=== PATIENT | female | born 1945 | race Caucasian/White ===

== ENCOUNTER 2020-02-09 15:13 | Outpatient (CLI) | payer MEDICARE, SELFPAY ==
--- NOTE | 2020-02-09 15:26 | US_ITS ---
WS: [id number] ULTRASOUND RENAL TECHNIQUE: Ultrasound examination of both kidneys. CLINICAL INFORMATION: Chronic kidney disease Declining renal function COMPARISON: None. FINDINGS: RIGHT: Right renal atrophy Echogenicity: Normal. Cortical thickness: 0.8 cm; Hydronephrosis: None. Perinephric fluid: None. Right kidney measures: 7.4 cm x 4.7 cm x 3.6 cm. LEFT: Left renal atrophy Echogenicity: Normal. Cortical thickness: 0.9 cm; Hydronephrosis: None. Perinephric fluid: None. Left kidney measures: 8.3 cm x 3.6 cm x 4.1 cm. Normal visualized aorta. Normal bladder. US/US renal BI* [id number] IMPRESSION: 1. Moderate bilateral renal cortical atrophy. 2. No hydronephrosis. 3. Bladder is normal.
== END 2020-02-09 15:14 | disposition home or self-care (01) ==
LOC: RAD 15:17
PROVIDERS: Family Provider Family Medicine; Visit Provider Nurse Practitioner Family
DX: N18.4 Chronic kidney disease, stage 4 (severe) (principal); N26.1 Atrophy of kidney (terminal)
CPT/HCPCS: 76770

== ENCOUNTER 2020-11-19 11:46 | Outpatient (CLI) | payer MEDICARE, SELFPAY ==
--- NOTE | 2020-11-19 12:00 | CT_ITS ---
WS: [id number] CT scan of the abdomen and pelvis with Oral contrast. Additional two-dimensional coronal and sagittal reconstruction was performed. 11/19/2020 Clinical Data: LOWER ABDOMINAL PAIN, ACUTE DIVERTICULITIS Comparison: CT abdomen and pelvis, 03/11/2019. DLP: 827.[address] scans at [facility] use at least one of these dose optimization techniques: automat ed exposure control; mA and/or kV adjustment per patient size (includes targeted exams where dose is matched to clinical indication); or iterative reconstruction. Findings: The lower lungs show no nodules, masses or effusions. The liver, spleen, adrenal glands and pancreas are normal. There are clips in the gallbladder fossa from cholecystectomy. There is air in the biliary tract which can be seen following a cholecystectomy . The kidneys show no cysts, masses, hydronephrosis or renal calculi.. The abdominal aorta is normal in size with minimal calcification in the wall. No appendicitis or diverticulitis is seen. Oral contrast is in the stomach, small bowel and colon and there is no bowel dilatation. No abscess, adenopathy, ascites, mass, obstruction or free air is seen . The bladder is unremarkable. No inguinal hernia is seen. The bones of the lower thorax, lumbar spine, pelvis, and hips show lumbar degenerative disc disease. CT/CT abdomen pelvis wo con [id number] Impression: 1. Cholecystectomy with air in the biliary tract which is a benign finding. 2. Negative for acute intra-abdominal or pelvic abnormalities.
[2020-11-19] MEDS: iohexol 300 mg/mL 50 mL Btl PO (12:14)
== END 2020-11-19 11:47 | disposition home or self-care (01) ==
PROVIDERS: Visit Provider Nurse Practitioner Family
DX: R79.82 Elevated C-reactive protein (CRP) (principal); R10.30 Lower abdominal pain, unspecified; K57.92 Diverticulitis of intestine, part unspecified, without perforation or abscess without bleeding; Z90.49 Acquired absence of other specified parts of digestive tract
CPT/HCPCS: 74176; Q9967

== ENCOUNTER 2020-12-17 09:10 | Day surgery (SDC) | payer MEDICARE, SELFPAY ==
[2020-12-15 13:22] VITALS: BMI 32.8
--- NOTE | 2020-12-17 09:35 | W.PM.OPSFHP ---
Same Day Surgery H&P Indication for Procedure/HPI DATE OF PROCEDURE: December 17, 2020 CHIEF COMPLAINT/INDICATIONFOR SURGICAL PROCEDURE: Hematochezia and abdominal pain PREOP DIAGNOSIS: Hematochezia and abdominal pain PLANNED PROCEDRUE: Operation Date: 12/17/20 10:15 Proposed Procedures p EGD 64524 K92.1(Not Applicable) - Wagner Dacosta MD s Colonoscopy 93556 K92.1(Not Applicable) - Wagner Dacosta MD Medications/Allergies* Home Medications Medication Instructions Recorded Confirmed Type atorvastatin 40 mg tablet 40 mg PO DAILY 12/02/20 12/15/20 History oykxxhymzh-pefilubskvvok-bdlhqebz 1 cap PO Q4H PRN 12/02/20 12/15/20 History 50 mg-325 mg-40 mg capsule desloratadine 5 mg tablet 5 mg PO DAILY 12/02/20 12/15/20 History diazepam 10 mg tablet 10 mg PO BID PRN tab 12/02/20 12/15/20 History diphenoxylate-atropine 2.5 1 tab PO Q8H 12/02/20 12/15/20 History mg-0.025 mg tablet donepezil 5 mg tablet 5 mg PO DAILY 12/02/20 12/15/20 History furosemide 20 mg tablet 10 mg PO QAM 12/02/20 12/15/20 History hydrocodone 5 mg-acetaminophen 325 1 tab PO Q6H PRN 12/02/20 12/15/20 History mg tablet ondansetron HCl 4 mg tablet 4 mg PO Q4H tab 12/02/20 12/15/20 History pantoprazole 40 mg tablet,delayed 40 mg PO DAILY 12/02/20 12/15/20 History release topiramate 50 mg tablet 50 mg PO BID 12/02/20 12/15/20 History venlafaxine 150 mg 150 mg PO DAILY 12/02/20 12/15/20 History capsule,extended release 24 hr Allergies/Adverse Reactions Allergy/AdvReac Type Severity Reaction Status Date / Time No Known Allergies Allergy Verified 12/02/20 13:00 Pertinent History/Comorbid Conditions* Social History Smoking and tobacco status: never smoked Alcohol intake: never Adopted: No service: No History of recent travel: No Pertinent Exam Findings alert, oriented x 3, clear to auscultation bilaterally, regular rate & rhythm, operative site marked and procedure specific exam findings Recommendations Surgery/Procedure today Coding Level of Care Code Acute Operations 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
--- NOTE | 2020-12-17 09:49 | ANES.PREANE2 ---
Pre-Anesthetic Assessment Pre-Anesthetic Assessment: Height/Weight: Height 1.55 m Weight 78.925 kg Preop Diagnosis: Hematochezia and abdominal pain Proposed Procedure: Operation Date: 12/17/20 10:15 Proposed Procedures p EGD 77071 K92.1(Not Applicable) - Wagner Dacosta MD s Colonoscopy 09202 K92.1(Not Applicable) - Wagner Dacosta MD Was Beta Joselin taken within 24 hours: N/A Was Clonidine taken within 24 hours: N/A Social: Social History: No alcohol and No tobacco Exam: Pre-Anes Outpt Exam: alert, oriented x 3, clear to auscultation bilaterally and regular rate & rhythm Airway: Submandibular: WNL Cervical ROM: WNL Dentition: False CV/HEM: CV/HEM: HTN GI: GI: GERD Metabolic: Metabolic: Hyperlipidemia Neuropsych: Neuropsych: Anxiety and Depression Anesthetic Plan: ASA status: 3 Anesthesia: MAC Risk of > 500 ml blood loss (7ml/kg in children): No PFSH Anesthesia PFSH: Social History (Updated 12/02/20 @ 13:13 by MCKENNA Hansen) Smoking and tobacco status: never smoked Alcohol intake: never Adopted: No service: No History of recent travel: No Data Anesthesia Cardiac Studies: No Data to Display
[2020-12-17] MEDS: sodium chloride 0.9% 1,000 ML 30 ML IV (10:01)
[2020-12-17 10:32] VITALS: BP 171/94; PULSE 82; RESP 18; TEMP 37; O2SAT 98
[2020-12-17 11:38] VITALS: BP 160/84; PULSE 81; RESP 18; TEMP 36.1; O2SAT 100
--- NOTE | 2020-12-17 11:43 | ANE.PACU2 ---
Inpatient post-anesthesia follow up: Airway intact: Yes Vital signs: Temperature 97.0 F Pulse Rate 81 Respiratory Rate 18 Blood Pressure 160/84 Pulse Oximetry 100 Oxygen Delivery Me thod Nasal Cannula Oxygen Flow Rate 2 Fraction of Inspir ed Oxygen Hydration adequate: Yes Nausea and vomiting: No Pain level: 1 Mental status: Baseline
[2020-12-17 11:50] VITALS: BP 167/76; PULSE 73; RESP 20; O2SAT 100
[2020-12-20 06:22] LABS: H. Pylori / CLO Test Negative
== END 2020-12-17 12:26 | disposition home or self-care (01) ==
PROVIDERS: Visit Provider Internal Medicine
PROC: 0DJ08ZZ Inspection of Upper Intestinal Tract, Via Natural or Artificial Opening Endoscopic (ICD-10-PCS; CPT 43235; principal; 2020-12-17 10:15)
PROC: 0DJD8ZZ Inspection of Lower Intestinal Tract, Via Natural or Artificial Opening Endoscopic (ICD-10-PCS; CPT 45378; 2020-12-17 10:15)
DX: K92.1 Melena (principal); R10.9 Unspecified abdominal pain; K31.1 Adult hypertrophic pyloric stenosis; K29.70 Gastritis, unspecified, without bleeding; I10 Essential (primary) hypertension; E78.5 Hyperlipidemia, unspecified; F41.9 Anxiety disorder, unspecified; F32.9 Major depressive disorder, single episode, unspecified
CPT/HCPCS: 43239; 45378; 87077; 96360; 96361; J2704; J7030

== ENCOUNTER 2021-02-02 09:09 | Outpatient (CLI) | payer MEDICARE, SELFPAY ==
--- NOTE | 2021-02-02 10:15 | USCV_ITS ---
Joselyn Melara Age: 75 Gender: F : 1945 Exam Date: 02/02/2021 10:20 Ordering Phys: Emily Beebe DIGITAL MUSIC INSTRUCTOR-BC XX Technologist: Tiffanie Jc Exam Location: [facility] Indication: pain RLE HISTORY: pain RLE PROCEDURES: On the right side, the common femoral, superficial femoral, profunda femoral, popliteal, posterior tibial, greater saphenous veins and the peroneal trunk were identified and interrogated in the standard fashion. These veins were found to be easily compressible with spontaneous blood flow. FINDINGS: Normal 2-D Doppler and augmentation and compressibility throughout the lower extremity venous structures. Additional imaging through the proximal calf veins also reveals no thrombus. Limited evaluation of the greater saphenous vein is patent with no thrombus.. CONCLUSIONS No DVT right lower extremity. Dr. Rina Vale DO (Electronically Signed) Final Date: 02 February 2021 11:02 S
== END 2021-02-02 09:10 | disposition home or self-care (01) ==
LOC: RAD 09:17
PROVIDERS: PCP Family Medicine; Visit Provider Nurse Practitioner Family
DX: M79.661 Pain in right lower leg (principal)
CPT/HCPCS: 93971

== ENCOUNTER 2021-08-08 14:53 | Outpatient (CLI) | payer MEDICARE, SELFPAY ==
--- NOTE | 2021-08-08 15:00 | MR_ITS ---
WS: [id number] MRI LUMBAR SPINE NONCONTRAST TECHNIQUE: Sagittal T1, T2 and STIR imaging. Axial T1 and T2 imaging. CLINICAL INFORMATION: CHRONIC LOW BACK PAIN/BILATERAL LEG WEAKNESS COMPARISON: MRI 2017 FINDINGS: Mild lumbar curve. No acute compression. Slight retrolisthesis L2 on L3. Mild disc bulging L1-L2, L2- L3, L3-L4 and L4-L5. Slight anterolisthesis L4 on L5. L1-L2: Mild annular bulging. Spinal canal and foramen are patent. Mild facet arthropathy. L2-L3: Mild disc bulging with slight effacement of the ventral thecal sac. Impingement RIGHT subartic ular recess and traversing right L3 nerve root. Small LEFT foraminal protrusion with mild LEFT forami nal narrowing. Mild facet arthropathy. L3-L4: Slight anterolisthesis L3 on L4. Impingement RIGHT subarticular recess and traversing RIGHT L4 nerve root. Foramen are patent. Moderate facet arthropathy. L4-L5: Slight anterolisthesis L4 on L5. Mild disc bulging with slight narrowing of the RIGHT subartic ular recess. Slight impingement traversing RIGHT L5 nerve root. Slight encroachment on the exiting RI GHT L4 nerve root laterally. Foramen are patent. Moderate facet arthropathy. L5-S1: Mild annular bulging with osteophytic ridging. Tiny annular fissure eccentric LEFT. Spinal can al and foramen are patent. Moderate facet arthropathy. Bilateral renal atrophy. No hydronephrosis Visualized pelvic bony structures: Normal. Paravertebral soft tissues: Normal. Disc desiccation at L2-L3 has progressed compared to 2017. Alignment is unchanged. Narrowing of the s ubarticular recess RIGHT L2-L3, RIGHT L3-L4, and RIGHT L4-L5 has progressed compared to 2017. MR/MR lumbar spine wo con* [id number] IMPRESSION: 1. Mild lumbar curve. No acute compression. No high-grade central canal stenos is. 2. Annular bulging L4-L5 with impingement on the RIGHT subarticular recess and traversing RIGHT L5 nerve root. 3. LEFT foraminal protrusion L2-L3 with slight contact of the exiting LEFT L2 nerve root. Mild LEFT foraminal narrowing. This is slightly progressed compared to 2017. 4. Narrowing of the RIGHT subarticular recess L2-L3 and L3-L4. Encroachment on the traversing RIGHT L3 and L4 nerve roots respectively. 5. Moderate facet arthropathy L4-L5 and L5-S1.
== END 2021-08-08 14:54 | disposition home or self-care (01) ==
LOC: RAD 14:55
PROVIDERS: PCP Family Medicine; Visit Provider Nurse Practitioner Family
DX: R53.1 Weakness (principal); M51.26 Other intervertebral disc displacement, lumbar region; M47.816 Spondylosis without myelopathy or radiculopathy, lumbar region; M47.817 Spondylosis without myelopathy or radiculopathy, lumbosacral region
CPT/HCPCS: 72148

== ENCOUNTER → 2021-08-16 15:44 | Outpatient (BNVA) | payer MEDICARE, SELFPAY | PROVIDERS: PCP Family Medicine; Visit Provider Orthopaedic Surgery | DX: M54.50 Low back pain, unspecified (principal); M43.16 Spondylolisthesis, lumbar region; M48.062 Spinal stenosis, lumbar region with neurogenic claudication | CPT/HCPCS: 72110 ==

== ENCOUNTER → 2021-09-06 10:25 | Outpatient (BNVA) | payer MEDICARE, SELFPAY | PROVIDERS: PCP Nurse Practitioner Family; Referring Provider Orthopaedic Surgery; Visit Provider Anesthesiology Pain Medicine | DX: M51.17 Intervertebral disc disorders with radiculopathy, lumbosacral region (principal); M51.16 Intervertebral disc disorders with radiculopathy, lumbar region; M43.16 Spondylolisthesis, lumbar region; M47.816 Spondylosis without myelopathy or radiculopathy, lumbar region; M79.604 Pain in right leg; M79.605 Pain in left leg; Z79.891 Long term (current) use of opiate analgesic | CPT/HCPCS: 99205 ==

== ENCOUNTER → 2021-09-27 12:45 | Outpatient (BNVA) | payer MEDICARE, SELFPAY | PROVIDERS: PCP Nurse Practitioner Family; Visit Provider Anesthesiology Pain Medicine | DX: Z79.891 Long term (current) use of opiate analgesic (principal); M54.16 Radiculopathy, lumbar region | CPT/HCPCS: 62323; J1040; J3490 ==

== ENCOUNTER → 2021-10-11 09:24 | Outpatient (BNVA) | payer MEDICARE, SELFPAY | PROVIDERS: PCP Nurse Practitioner Family; Visit Provider Anesthesiology Pain Medicine | DX: M43.16 Spondylolisthesis, lumbar region (principal); M47.816 Spondylosis without myelopathy or radiculopathy, lumbar region; M51.16 Intervertebral disc disorders with radiculopathy, lumbar region; M79.605 Pain in left leg; M79.604 Pain in right leg; Z79.891 Long term (current) use of opiate analgesic; M48.062 Spinal stenosis, lumbar region with neurogenic claudication | CPT/HCPCS: 99213; 99214 ==

== ENCOUNTER → 2021-10-25 12:46 | Outpatient (BNVA) | payer MEDICARE, SELFPAY | PROVIDERS: PCP Nurse Practitioner Family; Visit Provider Anesthesiology Pain Medicine | DX: M48.062 Spinal stenosis, lumbar region with neurogenic claudication (principal); Z79.891 Long term (current) use of opiate analgesic; M54.16 Radiculopathy, lumbar region | CPT/HCPCS: 62323; J1040; J3490 ==

== ENCOUNTER → 2021-11-08 08:51 | Outpatient (BNVA) | payer MEDICARE, SELFPAY | PROVIDERS: PCP Nurse Practitioner Family; Visit Provider Anesthesiology Pain Medicine | DX: M48.062 Spinal stenosis, lumbar region with neurogenic claudication (principal); M43.16 Spondylolisthesis, lumbar region; M47.816 Spondylosis without myelopathy or radiculopathy, lumbar region; M51.16 Intervertebral disc disorders with radiculopathy, lumbar region; M79.604 Pain in right leg; M79.605 Pain in left leg; Z79.891 Long term (current) use of opiate analgesic | CPT/HCPCS: 99213 ==

== ENCOUNTER → 2021-11-21 13:14 | Outpatient (BNVA) | payer MEDICARE, SELFPAY | PROVIDERS: PCP Nurse Practitioner Family; Visit Provider Anesthesiology Pain Medicine | DX: M48.062 Spinal stenosis, lumbar region with neurogenic claudication (principal); Z79.891 Long term (current) use of opiate analgesic; M54.16 Radiculopathy, lumbar region | CPT/HCPCS: 62323; J1040; J3490 ==

== ENCOUNTER → 2021-12-05 10:01 | Outpatient (BNVA) | payer MEDICARE, SELFPAY | PROVIDERS: PCP Nurse Practitioner Family; Visit Provider Anesthesiology Pain Medicine | DX: M48.062 Spinal stenosis, lumbar region with neurogenic claudication (principal); M43.16 Spondylolisthesis, lumbar region; M47.816 Spondylosis without myelopathy or radiculopathy, lumbar region; M51.16 Intervertebral disc disorders with radiculopathy, lumbar region; M79.604 Pain in right leg; M79.605 Pain in left leg; Z79.891 Long term (current) use of opiate analgesic | CPT/HCPCS: 99214 ==

== ENCOUNTER → 2021-12-19 13:56 | Outpatient (BNVA) | payer MEDICARE, SELFPAY | PROVIDERS: PCP Nurse Practitioner Family; Visit Provider Anesthesiology Pain Medicine | DX: M48.062 Spinal stenosis, lumbar region with neurogenic claudication (principal); Z79.891 Long term (current) use of opiate analgesic; M47.816 Spondylosis without myelopathy or radiculopathy, lumbar region | CPT/HCPCS: 64493; 64494; 64495; J3490 ==

== ENCOUNTER → 2022-01-11 12:45 | Outpatient (BNVA) | payer MEDICARE, SELFPAY | PROVIDERS: PCP Nurse Practitioner Family; Visit Provider Anesthesiology Pain Medicine | DX: M48.062 Spinal stenosis, lumbar region with neurogenic claudication (principal); Z79.891 Long term (current) use of opiate analgesic | CPT/HCPCS: 64493; 64494; 64495; J3490 ==

== ENCOUNTER → 2022-01-25 10:00 | Outpatient (BNVA) | payer MEDICARE, SELFPAY | PROVIDERS: PCP Nurse Practitioner Family; Visit Provider Anesthesiology Pain Medicine | DX: M79.604 Pain in right leg (principal); M79.605 Pain in left leg; Z79.891 Long term (current) use of opiate analgesic; M48.062 Spinal stenosis, lumbar region with neurogenic claudication; M43.16 Spondylolisthesis, lumbar region; M47.816 Spondylosis without myelopathy or radiculopathy, lumbar region; M51.16 Intervertebral disc disorders with radiculopathy, lumbar region | CPT/HCPCS: 99214 ==

== ENCOUNTER → 2022-02-20 14:03 | Outpatient (BNVA) | payer MEDICARE, SELFPAY | PROVIDERS: PCP Nurse Practitioner Family; Visit Provider Anesthesiology Pain Medicine | DX: M48.062 Spinal stenosis, lumbar region with neurogenic claudication (principal); Z79.891 Long term (current) use of opiate analgesic; M47.816 Spondylosis without myelopathy or radiculopathy, lumbar region | CPT/HCPCS: 64635; 64636; J1030 ==

== ENCOUNTER → 2022-03-07 10:33 | Outpatient (BNVA) | payer MEDICARE, SELFPAY | PROVIDERS: PCP Nurse Practitioner Family; Visit Provider Anesthesiology Pain Medicine | DX: M25.552 Pain in left hip (principal); M48.062 Spinal stenosis, lumbar region with neurogenic claudication; M43.16 Spondylolisthesis, lumbar region; M47.816 Spondylosis without myelopathy or radiculopathy, lumbar region; M51.16 Intervertebral disc disorders with radiculopathy, lumbar region; M79.604 Pain in right leg; M79.605 Pain in left leg | CPT/HCPCS: 73502; 99214 ==

== ENCOUNTER → 2022-03-23 12:13 | Outpatient (BNVA) | payer MEDICARE, SELFPAY | PROVIDERS: PCP Nurse Practitioner Family; Visit Provider Anesthesiology Pain Medicine | DX: M47.816 Spondylosis without myelopathy or radiculopathy, lumbar region (principal); M48.062 Spinal stenosis, lumbar region with neurogenic claudication | CPT/HCPCS: 64635; 64636; J1030 ==

== ENCOUNTER → 2022-04-06 11:00 | Outpatient (BNVA) | payer MEDICARE, SELFPAY | PROVIDERS: PCP Nurse Practitioner Family; Visit Provider Anesthesiology Pain Medicine | DX: M48.062 Spinal stenosis, lumbar region with neurogenic claudication (principal); M43.16 Spondylolisthesis, lumbar region; M47.816 Spondylosis without myelopathy or radiculopathy, lumbar region; M51.16 Intervertebral disc disorders with radiculopathy, lumbar region; M79.604 Pain in right leg; M79.605 Pain in left leg | CPT/HCPCS: 99214 ==

== ENCOUNTER 2023-03-09 13:42 | Outpatient (CLI) | payer MEDICARE, SELFPAY ==
--- NOTE | 2023-03-09 14:04 | CT_ITS ---
WS: [id number] CT ABDOMEN AND PELVIS NONCONTRAST HISTORY: ABD PAIN/ELEVATED C REACTIVE PROTEIN/UTI TECHNIQUE: Imaging performed through the abdomen and pelvis. Coronal and sagittal reformats are submi tted. All CT scans at [facility] use at least one of these dose optimization techniques: auto mated exposure control; mA and/or kV adjustment per patient size (includes targeted exams where dose is matched to clinical indication); or iterative reconstruction. DLP: 282.94 mGy.cm COMPARISON: 11/19/2020 Lower thorax: Lung bases are clear. Visualized heart is normal. No hiatal hernia. Liver: Negative noncontrast liver. There is a small amount of biliary air which is decreased since . Gallbladder: Prior cholecystectomy. Pancreas: Normal size and attenuation. Normal pancreatic duct. No pancreatitis or mass. Spleen: Normal. Adrenal glands: Normal. No mass. Right kidney: Mild perinephric stranding. No obstruction. No mass. Left kidney: Mild perinephric stranding. No obstruction or mass. Aorta: Mild atherosclerosis abdominal aorta with no aneurysm. No free fluid, intraperitoneal air or significant lymphadenopathy. GI tract: Nondistended stomach. No small bowel obstruction. Prior appendectomy. There are a few scatt ered sigmoid diverticula without acute diverticulitis. Abdominal wall: Small umbilical hernia contains fat only. Pelvis: Uterus is absent. No mass or adenopathy. No fluid. Osseous structures: L4 anterolisthesis by 2 mm. Anterior wedging of T10 by 10%. New compression fract ures since 08/08/2021. Mild sclerotic changes in the femoral heads with variable density. Early changes of osteonecrosis should be considered. There is no collapse at this time and no fracture. IMPRESSION: 1. Status post cholecystectomy and appendectomy. 2. No adenopathy or free fluid. 3. Mild sigmoid diverticulosis without acute diverticulitis. 4. No renal obstruction. 5. New T10 compression fracture by 10%. Fracture is new since 08/08/2021.
== END 2023-03-09 13:43 | disposition home or self-care (01) ==
PROVIDERS: PCP Nurse Practitioner Family; Visit Provider Nurse Practitioner Family
DX: R10.9 Unspecified abdominal pain (principal); R79.82 Elevated C-reactive protein (CRP); N39.0 Urinary tract infection, site not specified; K57.30 Diverticulosis of large intestine without perforation or abscess without bleeding; M48.54XA Collapsed vertebra, not elsewhere classified, thoracic region, initial encounter for fracture
CPT/HCPCS: 74176

== ENCOUNTER → 2023-08-30 11:56 | Outpatient (BNVA) | payer MEDICARE, SELFPAY | PROVIDERS: PCP Nurse Practitioner Family; Visit Provider Anesthesiology Pain Medicine | DX: M85.88 Other specified disorders of bone density and structure, other site (principal); M47.896 Other spondylosis, lumbar region; G89.29 Other chronic pain; M48.062 Spinal stenosis, lumbar region with neurogenic claudication; M43.16 Spondylolisthesis, lumbar region; M47.816 Spondylosis without myelopathy or radiculopathy, lumbar region; M51.16 Intervertebral disc disorders with radiculopathy, lumbar region | CPT/HCPCS: 72110; 99214 ==

== ENCOUNTER 2023-10-01 07:00 | Outpatient (CLI) | payer MEDICARE, SELFPAY ==
--- NOTE | 2023-10-01 08:00 | MR_ITS ---
WS: [id number] MRI LUMBAR SPINE NONCONTRAST HISTORY: M54.16 - Radiculopathy, lumbar region COMPARISON: 08/08/2021 TECHNIQUE: Sagittal and axial multisequence imaging is submitted. Moderate increase in cervical lordosis and thoracic kyphosis. Interval 30% T7 compression fracture. Mild anterior wedging of T11 by 10%, nonacute. Slight increase in the lumbar lordosis. No fractures or marrow edema. Slight retrolisthesis of L2. Ve ry slight anterolisthesis of L4. Similar to the prior studies. Mild disc space narrowing and desiccation throughout the lumbar spine. Conus terminates normally at L1-2 disc level. L1-L2: Very slight annular disc bulging with facet arthritis. L2-L3: Mild annular disc bulging with a shallow LEFT paracentral disc protrusion which is new. Bilate ral moderate facet arthritis with increasing fluid in the facet joints. Very mild narrowing of the espinoza barticular recesses. Mild bilateral foraminal stenosis. Small LEFT foraminal disc protrusion. L3-L4: Mild annular disc bulging with facet joint arthritis and ligamentum flavum hypertrophy. Mild i mpingement upon the RIGHT subarticular recess and traversing RIGHT L4 nerve root. L4-L5: Mild disc bulging with slight narrowing of the RIGHT subarticular recess and minimal RIGHT for aminal narrowing. L5-S1: Mild annular disc bulging with mild encroachment upon the subarticular recesses and the S1 ner ve roots. There are shallow LEFT foraminal disc protrusion. Moderate bilateral facet arthritis. Common bile duct is measuring 10 mm in diameter which is slightly more prominent as compared to [address] from 03/09/2023. May be postcholecystectomy dilatation. This can be further evaluated by RIG HT upper quadrant ultrasound if clinically thought necessary. IMPRESSION: 1. New T7 and T11 compression fractures since 08/08/2021. There is no marrow or disc edema to suggest these are acute at this time. 2. No high-grade central or foraminal stenosis. 3. Increasing facet joint arthritis with increasing fluid in the facet joints at L2-3. 4. L2-3: New very small LEFT paracentral disc protrusion. Small LEFT foraminal disc protrusion. Mild narrowing of the subarticular recesses and foramina. 5. Mild disc impingement upon the RIGHT subarticular recess and traversing RIGHT L4 nerve root. No c hange. 6. L4-5: Mild RIGHT subarticular recess and RIGHT foraminal narrowing. 7. Mild disc encroachment upon the subarticular recesses at L5-S1. Moderate facet joint arthritis. N o high-grade stenosis.
== END 2023-10-01 07:01 | disposition home or self-care (01) ==
LOC: RAD 07:00
PROVIDERS: PCP Nurse Practitioner Family; Visit Provider Anesthesiology Pain Medicine
DX: M54.16 Radiculopathy, lumbar region (principal); M48.54XA Collapsed vertebra, not elsewhere classified, thoracic region, initial encounter for fracture; M45.7 Ankylosing spondylitis of lumbosacral region
CPT/HCPCS: 72148; 99214

== ENCOUNTER → 2023-10-05 10:25 | Outpatient (BNVA) | payer MEDICARE, SELFPAY | PROVIDERS: PCP Nurse Practitioner Family; Visit Provider Nurse Practitioner Family | DX: R52 Pain, unspecified (principal); R05.9 Cough, unspecified; M54.9 Dorsalgia, unspecified; G89.29 Other chronic pain; J06.9 Acute upper respiratory infection, unspecified | CPT/HCPCS: 87400; 87426 ==

== ENCOUNTER 2023-10-07 13:50 | Inpatient (IN) | payer MEDICARE, MEDICAID, SELFPAY ==
[2023-10-07] VITALS (8 sets, daily range): BP systolic 113–147; BP diastolic 71–89; PULSE 72–94; RESP 15–18; TEMP 36.4–36.9; O2SAT 90–100; BMI 24.5
--- NOTE | 2023-10-07 13:53 | ECG_ITS ---
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 Measurements Intervals [place] Rate: 88 P: 33 IL: 128 QRS: -51 QRSD: 73 T: -11 QT: 371 QTc: 449 Interpretive Statements SINUS RHYTHM WITH OCCASIONAL SUPRAVENTRICULAR PREMATURE COMPLEXES LOW QRS VOLTAGE IN PRECORDIAL LEADS [QRS DEFLECTION < 1.0 mV IN CHEST LEADS] POSSIBLE RIGHT VENTRICULAR CONDUCTION DELAY [RSR (QR) IN V1/V2] LEFT ANTERIOR FASCICULAR BLOCK [QRS AXIS <= -45, QR IN I, RS IN II] POSSIBLE ANTERIOR MYOCARDIAL INFARCTION , OF INDETERMINATE AGE [30 ms Q WAVE IN V3/V4, OR R < 0.2 mV IN V4] Compared to ECG 03/11/2019 18:01:48 Left anterior fascicular block now present Myocardial infarct finding now present Left-axis deviation no longer present Electronically Signed On 10-08-2023 13:17:37 CDT by Roger Golden M.D. [id number]
--- NOTE | 2023-10-07 14:59 | ED_ITS ---
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 States she has had multiple episodes of vomiting and diarrhea she denies any fever denies any cough. She denies any worsening proving factors states chest pains been constant and sharp in nature. Associated symptoms: Reports vomiting; Deny abdominal pain, dyspnea, fever(s) or nausea Review of Systems 2 Const: Denies: fever(s), chills, body aches or change in appetite ENMT: Denies: throat pain or dental pain Card: Reports: chest pain Resp: Denies: dyspnea GI: Reports: vomiting and diarrhea; Denies: abdominal pain or nausea : Denies: dysuria Musc: Reports: back pain; Denies: neck pain Skin/Breast: Denies: rash Neuro: Denies: headache(s) PFSH ED 2 PFSH: Family History Denies family history of Anesthesia complication Social History Smoking and tobacco/nicotine status: never used tobacco/nicotine Second hand smoke exposure: No Alcohol intake: never Substance/Drug Use: never Adopted: No service: No Female Reproductive History: Spontaneous abortions: No Physical Exam 2 Const: COMMON NORMALS: no acute distress, patient oriented x3 and healthy appearing HENMT: COMMON NORMALS: normocephalic and atraumatic HEAD & SCALP: n ormocephalic and atraumatic Eye: COMMON NORMALS: Equal, round and reactive pupils present and EOMs intact bilaterally PUPIL: Yes Equal, round and reactive pupils present Neck/C-Spine: COMMON NORMALS: full ROM and supple Chest: COMMONS NORMALS: normal inspection of the chest and normal palpation of entire chest wall Resp: COMMON NORMALS: normal respiratory effort, No retractions, No use of accessory muscles and clear to auscultation bilaterally AUSCULTATION: clear to auscultation bilaterally Cardio: COMMON NORMALS: regular rate, regular rhythm and No murmurs present (Cardio) RATE: regular rate RHYTHM: regular rhythm GI: COMMON NORMALS: Normal to inspection, nondistended, normoactive bowel sounds present, Soft to palpation, non-tender and no masses PALPATION: Yes Soft to palpation Extremity: COMMON NORMALS: normal to inspection and full ROM Neuro: COMMON NORMALS: patient oriented x3, moves all extremities and no focal motor deficits Psych: COMMON NORMALS: mental status grossly normal, Normal thought process present and cooperative THOUGHT PROCESS: Normal thought process present Skin: COMMON NORMALS: no rashes or lesions noted and no wounds GENERAL SKIN EXAM: no rashes or lesions noted Course 2 Vital Signs: Vital signs: Vital Signs Temperature 97.5 F L 10/07/23 13:59 Pulse Rate 84 10/07/23 17:49 Respiratory Rate 16 10/07/23 16:28 Blood Pressure 134/75 10/07/23 16:37 Pulse Oximetry 90 10/07/23 17:49 Oxygen Delivery Me thod Room Air 10/07/23 17:49 MDM - Chest Pain Medical Decision Making Patient presents here with intractable vomiting some questionable blood in her vomitus her hemoglobin here is normal CT scans normal she had chest pain as well EKG and troponins normal I spoke to the hospitalist who is admitting Medical Records I reviewed the patient's medical records. Lab Data I reviewed the patient's lab results. 10/07/23 15:20 10/07/23 15:20 Radiology Impressions Chest X-Ray 10/07/23 15:03 IMPRESSION: No acute findings. Abdomen/Pelvis CT 10/07/23 16:23 IMPRESSION: 1. No acute findings. 2. Incidental findings above. Laboratory Results WBC 2.45 10^3/uL (3.29-11.43) L 10/07/23 15:20 RBC 3.67 10^6/uL (3.85-5.65) L 10/07/23 15:20 Hgb 12.30 g/dL (11.27-16.99) 10/07/23 15:20 Hct 36.7 % (36-47) 10/07/23 15:20 MCV 100.0 fl (85-98) H 10/07/23 15:20 MCH 33.5 pg (27-33) H 10/07/23 15:20 MCHC 33.5 g/dL (30-55) 10/07/23 15:20 RDW 13.7 % (12.1-15.1) 10/07/23 15:20 Plt Count 158 10^3/cmm (157-399) 10/07/23 15:20 MPV 10.1 fL (7.4-10.4) 10/07/23 15:20 Neut % (Auto) 55.1 % 10/07/23 15:20 Lymph % (Auto) 29.4 % 10/07/23 15:20 [place] % (Auto) 13.5 % 10/07/23 15:20 Eos % (Auto) 0.8 % 10/07/23 15:20 Baso % (Auto) 0.8 % 10/07/23 15:20 Neut # (Auto) 1.35 10^3/uL (1.8-7.7) L 10/07/23 15:20 Lymph # (Auto) 0.7 10^3/uL (0.8-4.8) L 10/07/23 15:20 [place] # (Auto) 0.3 10^3/uL (0.2-0.9) 10/07/23 15:20 Eos # (Auto) 0.0 10^3/uL (0.0-0.8) 10/07/23 15:20 Baso # (Auto) 0.0 10^3/uL (0.0-0.1) 10/07/23 15:20 Nucleated RBC % (auto) 0 % 10/07/23 15:20 Nucleated RBCs # 0.0 /100WBC 10/07/23 15:20 PT 11.90 SECONDS (12.1-14.9) L 10/07/23 15:20 INR 0.86 (0.8-1.2) 10/07/23 15:20 Sodium 133 mmol/L (136-145) L 10/07/23 15:20 Potassium 3.7 mmol/L (3.5-5.1) 10/07/23 15:20 Chloride 97 mmol/L (98-107) L 10/07/23 15:20 Carbon Dioxide 24 mmol/L (22-29) 10/07/23 15:20 Anion Gap 15.7 (5-19) 10/07/23 15:20 BUN 19 mg/dL (8-23) 10/07/23 15:20 Creatinine 1.4 mg/dL (0.5-0.9) H 10/07/23 15:20 GFR Calculation Not Reportable 10/07/23 15:20 Glucose 112 mg/dL (65-115) 10/07/23 15:20 Calculated Osmolality 279 mOsm/kg (285-295) L 10/07/23 15:20 Calcium 8.9 mg/dL (8.5-10.5) 10/07/23 15:20 Total Bilirubin 0.2 mg/dL (0.15-1.2) 10/07/23 15:20 AST 26 U/L (0-32) 10/07/23 15:20 ALT 11 U/L (0-33) 10/07/23 15:20 Alkaline Phosphatase 84 U/L (35-105) 10/07/23 15:20 Troponin T Baseline 20 ng/L (0-10) H 10/07/23 15:20 Total Protein 6.3 g/dL (6.6-8.7) L 10/07/23 15:20 Albumin 3.5 g/dL (3.5-5.2) 10/07/23 15:20 Globulin 2.8 g/dL (1.3-4.6) 10/07/23 15:20 Lipase 50 U/L (13-60) 10/07/23 15:20 All radiology interpretation(s) finalized by discharge EKG Data EKG 2: I personally reviewed and interpreted this EKG as follows: EKG interpretation date: 10/07/23 EKG interpretation time: 16:22 Interpretation: nsr hr [address] elevation qrs 86 qtc 438 Discharge Plan Discharge Patient Disposition: Admitted As Inpatient Clinical Impression: Intractable vomiting, Chest pain Condition: Stable Prescriptions: No Action hydrocodone-acetaminophen 5-325 mg tablet 1 tab PO Q6H PRN (Reason: Pain) topiramate [Topamax] 50 mg tablet 50 mg PO BID atorvastatin [Lipitor] 40 mg tablet 40 mg PO DAILY diazepam 10 mg tablet 10 mg PO BID PRN (Reason: Anxiety) furosemide 20 mg tablet 10 mg PO QAM newzchmfpc-uuaaqmjgloxtt-zmzt 50-325-40 mg capsule 1 cap PO Q4H PRN (Reason: Migraine Headache) donepezil 5 mg tablet 5 mg PO DAILY diphenoxylate-atropine [Lomotil] 2.5-0.025 mg tablet 1 tab PO Q8H venlafaxine 150 mg capsule,extended release 24hr 150 mg PO DAILY magnesium oxide 400 mg magnesium capsule 400 mg PO DAILY ondansetron HCl 4 mg tablet 4 mg PO Q4H Qty: 14 0RF pantoprazole 40 mg tablet,delayed release (DR/EC) 40 mg PO BID Qty: 60 0RF Referrals: Emily Beebe [Primary Care Provider] - Coding Level of Care Code ED Automated Manufacturing Instructor for Juan Jones
--- NOTE | 2023-10-07 15:03 | XRR_ITS ---
PROCEDURE INFORMATION: Exam: XR Chest Exam date and time: 10/07/2023 3:20 PM Age: 78 years old Clinical indication: Pain; Chest pressure; Additional info: Cp TECHNIQUE: Imaging protocol: Radiologic exam of the chest. Views: 1 view. COMPARISON: CR XR chest 1V [id number] 03/11/2019 12:11 PM FINDINGS: Lungs: There is no consolidation. Pleural spaces: There is no pleural effusion or pneumothorax. Heart/Mediastinum: Heart size is normal. Focally prominent right hilar contour, similar to the finding on 03/11/2019. Bones/joints: Bones are unremarkable. XR/XR chest 1V portable [id number] IMPRESSION: No acute findings.
[2023-10-07] MEDS: ondansetron 2 mg/ML SDV 2 mL 4 MG IVP ×2 (15:14→16:26)
[2023-10-07 15:27] LABS: Basophils % 0.8 %; Eosinophils % 0.8 %; Hematocrit 36.7 % (36-47); Lymphocytes # 0.7 10^3/uL (0.8-4.8); Lymphocytes % 29.4 %; Mean Corpuscular HGB Conc 33.5 g/dL (30-55); Mean Corpuscular Hemoglobin 33.5 pg (27-33); Mean Platelet Volume 10.1 fL (7.4-10.4); Monocytes # 0.3 10^3/uL (0.2-0.9); Monocytes % 13.5 %; Neutrophils # 1.35 10^3/uL (1.8-7.7); Neutrophils % 55.1 %; Nucleated Red Blood Cells % 0 %; Platelet Count 158 10^3/cmm (157-399); Red Blood Count 3.67 10^6/uL (3.85-5.65); Red Cell Distribution Width 13.7 % (12.1-15.1); White Blood Count 2.45 10^3/uL (3.29-11.43)
[2023-10-07 15:41] LABS: INR 0.86 (0.8-1.2)
[2023-10-07 15:48] LABS: Alanine Aminotransferase 11 U/L (0-33); Albumin Level 3.5 g/dL (3.5-5.2); Alkaline Phosphatase 84 U/L (35-105); Aspartate Amino Transferase 26 U/L (0-32); Blood Urea Nitrogen 19 mg/dL (8-23); Calcium 8.9 mg/dL (8.5-10.5); Carbon Dioxide 24 mmol/L (22-29); Chloride 97 mmol/L (98-107); Globulin 2.8 g/dL (1.3-4.6); Glucose 112 mg/dL (65-115); Lipase 50 U/L (13-60); Osmolality Calculated 279 mOsm/kg (285-295); Sodium 133 mmol/L (136-145); Total Bilirubin 0.2 mg/dL (0.15-1.2); Total Protein 6.3 g/dL (6.6-8.7)
[2023-10-07 15:50] LABS: Troponin(5th) Baseline 20 ng/L (0-10)
[2023-10-07 16:07] LABS: Anion Gap 15.7 (5-19); Creatinine Clr Calc Pharmacy 28.2075; Potassium 3.7 mmol/L (3.5-5.1)
--- NOTE | 2023-10-07 16:22 | ECG_ITS ---
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 Measurements Intervals [place] Rate: 73 P: 38 WI: 135 QRS: -48 QRSD: 86 T: -3 QT: 413 QTc: 456 Interpretive Statements SINUS RHYTHM LOW QRS VOLTAGE IN PRECORDIAL LEADS [QRS DEFLECTION < 1.0 mV IN CHEST LEADS] POSSIBLE RIGHT VENTRICULAR CONDUCTION DELAY [RSR (QR) IN V1/V2] LEFT ANTERIOR FASCICULAR BLOCK [QRS AXIS <= -45, QR IN I, RS IN II] ANTERIOR MYOCARDIAL INFARCTION , OF INDETERMINATE AGE [40+ ms Q WAVE AND/OR ST/T ABNORMALITY IN V3/V4] Compared to ECG 10/07/2023 13:53:02 No significant changes Electronically Signed On 10-08-2023 13:22:05 CDT by Roger Golden M.D. [id number]
--- NOTE | 2023-10-07 16:23 | CTR_ITS ---
PROCEDURE INFORMATION: Exam: CT Abdomen And Pelvis Without Contrast Exam date and time: 10/07/2023 5:07 PM Age: 78 years old Clinical indication: Nausea and vomiting; Additional info: Vomiting, bad iv TECHNIQUE: Imaging protocol: Computed tomography of the abdomen and pelvis without contrast. Radiation optimization: All CT scans at this facility use at least one of these dose optimization techniques: automated exposure control; mA and/or kV adjustment per patient size (includes targeted exams where dose is matched to clinical indication); or iterative reconstruction. COMPARISON: CT abdomen pelvis wo con [id number] 03/09/2023 2:41 PM RADIATION DOSE METRICS: Total DLP (mGy-cm): 455.24 FINDINGS: Lungs: There is subsegmental atelectasis in the lung bases. Heart: Heart size is normal. Coronary arteries: There is moderate coronary artery calcification. Diaphragm: There is a small sliding-type hiatal hernia. Liver: The liver is normal. Gallbladder and bile ducts: The gallbladder is absent. There is moderate dilation of the common bile duct and central intrahepatic ducts. There is trace pneumobilia. Pancreas: The pancreas is unremarkable. Spleen: The spleen is unremarkable. Adrenal glands: The adrenal glands are unremarkable. Kidneys and ureters: There is mild atrophy of both kidneys. There is no hydronephrosis or stones. Stomach and bowel: The stomach is nondistended, limiting assessment of wall thickness. The small bowel is nondilated. There is mild sigmoid colonic diverticulosis without evidence of diverticulitis. Appendix: The appendix is absent. Intraperitoneal space: There is no free air or significant intraperitoneal free fluid. Vasculature: There is moderate aortic atherosclerotic disease. Lymph nodes: There is no lymphadenopathy in the retroperitoneum, mesentery, pelvis or inguinal regions. Urinary bladder: The urinary bladder is unremarkable. Reproductive: The uterus is absent. There is no adnexal mass or large cyst. Bones/joints: There is mild degenerative disease in the lumbar spine. Stable mild T11 superior endplate compression fracture. Lumbar vertebral body height is maintained. The pelvis and hips are unremarkable. Soft tissues: The abdominal wall is intact. CT/CT abdomen pelvis wo con [id number] IMPRESSION: 1. No acute findings. 2. Incidental findings above.
[2023-10-07] MEDS: morphine 4 mg/mL SDV 1 mL IVP (16:28)
[2023-10-07] MEDS: iohexol 350 mg/mL 500 mL Btl (per mL) IV (17:10)
[2023-10-07] MEDS: pantoprazole 40 mg SDV 80 MG IVP (18:08)
[2023-10-07] MEDS: diphenhydrAMINE 50 mg/mL SDV 1mL 25 MG IVP (18:14)
[2023-10-07] MEDS: metoclopramide 5 mg/mL SDV 2 mL IVP (18:17)
[2023-10-07] MEDS: pantoprazole 40 MG in sodium chloride 0.9% (plus) 100 ML 20 MG IV ×2 (18:19→22:46)
[2023-10-07] MEDS: sodium chloride 0.9% 1,000 ML 999 ML IV (18:27)
--- NOTE | 2023-10-07 18:59 | P.HP_ITS ---
Providers/Chief Complaint 2 Admitting Physician: Janak Marino DO Primary Care Provider: Emily Beebe Chief Complaint: chest pains History of Present Illness Joselyn Melara is a 78 year old female with history dementia CHF hypertension hyperlipidemia and anxiety presents with a 5-day history of nausea and vomiting. This illness started with bloody diarrhea according to the . He said it was dark black with noticeable blood. She has been drinking some black raspberry sparkling ice and they thought that is what she was vomiting. However the vomit is bright red blood and does not appear like the sparkling ice color. Overall the patient states she is just not been feeling well rather achy denies headaches. Wants asking the reports patient actually has not been feeling well since Sunday when she was evaluated for her back pain and was going to have epidural shots. In the emergency department her vital signs are stable hemoglobin is within normal limits. She has failed a few doses of Zofran. She will be admitted to the hospital for workup and treatment of hematochezia and melena. Review of Systems 2 Const: Reports: chills, body aches, fatigue and malaise; Denies: fever(s) Eyes: Denies: change in vision ENMT: Denies: throat pain or nasal congestion Card: Denies: chest pain or palpitations Resp: Denies: dyspnea or productive cough GI: Reports: abdominal pain, nausea, hematemesis, diarrhea and hematochezia : Denies: dysuria Musc: Denies: extremity pain Skin/Breast: Denies: rash or lesions Neuro: Denies: headache(s) or dizziness Psych: Reports: anxiety and memory loss; Denies: depression Abhishek/Lymph: Denies: easy bruising or easy bleeding Medications/Allergies Home Medications Medication Instructions Recorded Confirmed Last Taken Type atorvastatin 40 mg tablet (Lipitor) 40 mg PO DAILY 12/02/20 10/07/23 10/06/23 History nrjncomtmt-utideziftxrrh-ykxogqoi 1 cap PO Q4H PRN Migraine Headache 12/02/20 10/07/23 10/07/23 History 50 mg-325 mg-40 mg capsule diazepam 10 mg tablet 10 mg PO BID PRN Anxiety 12/02/20 10/07/23 10/07/23 History diphenoxylate-atropine 2.5 1 tab PO Q8H 12/02/20 10/07/2310/06/24 History mg-0.025 mg tablet (Lomotil) donepezil 5 mg tablet 5 mg PO DAILY 12/02/20 10/07/23 10/06/23 History furosemide 20 mg tablet 10 mg PO QAM 12/02/20 10/07/23 10/06/23 History hydrocodone 5 mg-acetaminophen 325 1 tab PO Q6H PRN Pain 12/02/20 10/07/23 12/15/20 History mg tablet topiramate 50 mg tablet (Topamax) 50 mg PO BID 12/02/20 10/07/23 10/06/23 History venlafaxine 150 mg 150 mg PO DAILY 12/02/20 10/07/23 12/15/20 History capsule,extended release 24 hr magnesium oxide 400 mg PO DAILY 08/16/21 10/07/23 10/06/23 History pantoprazole 40 mg tablet,delayed 40 mg PO BID #60 tabs 02/06/22 10/07/23 10/06/23 Rx release ondansetron HCl 4 mg tablet 4 mg PO Q4H #14 tabs 10/05/23 10/07/23 10/07/23 Rx Allergies Allergy/AdvReac Type Severity Reaction Status Date / Time No Known Allergies Allergy Verified 10/07/23 14:28 PFSH Acute 2 PFSH: Medical History Diverticulitis Lumbar stenosis with neurogenic claudication Lumbar disc disease with radiculopathy Chronic constipation Surgical History History of appendectomy History of partial hysterectomy History of cholecystectomy Family History Denies family history of Anesthesia complication Social History Smoking and tobacco/nicotine status: never used tobacco/nicotine Second hand smoke exposure: No Alcohol intake: never Substance/Drug Use: never Adopted: No service: No Female Reproductive History: Spontaneous abortions: No Vitals/I&O/Wt Last Vital Signs Temp 97.5 F L 10/07/23 13:59 Pulse 84 10/07/23 17:49 Resp 16 10/07/23 16:28 BP 134/75 10/07/23 16:37 Pulse Ox 90 10/07/23 17:49 O2 Del Method Room Air 10/07/23 17:49 Weight last 48 hrs Weight 58.967 kg Physical Exam 2 Narrative: Elderly female in acute distress due to vomiting. Appears dehydrated though well-nourished HEENT head is normocephalic atraumatic pupils equal round reactive to light and accommodation extraocular muscles are intact there is no scleral icterus mucous membranes are dry no significant erythema or lesions neck is supple no JVD carotid bruits or lymphadenopathy Heart is regular normal S1-S2 without murmurs clicks gallops or rubs Lungs are clear to auscultation without wheezes rales or rhonchi Abdomen is soft mild tenderness in the epigastrium no rebound rigidity or guarding no hepatosplenomegaly Extremities no clubbing cyanosis or edema Psych mood and affect are appropriate for illness Back kyphosis no CVA tenderness Skin no lesions or rash noted Data 10/07/23 15:20 10/07/23 15:20 CXR: My impression: No acute cardiopulmonary disease Radiologist's impression: No acute findings A&P Assessment and plan (1) Intractable vomiting: (2) Melena: (3) Hematochezia: (4) Other malaise and fatigue: (5) Chronic constipation: (6) Diverticulosis: (7) History of diverticulitis of colon: (8) Lumbar disc disease with radiculopathy: (9) Lumbar stenosis with neurogenic claudication: Plan 78-year-old white female with a known history of diverticular disease presents with 5 to 6-day history of weakness fatigue chills and bodyaches subsequently followed by hematochezia and melena. Admit to CSU. N.p.o. except for chips sips and ice Stat surgical consult Hold p.o. meds Protonix drip Zofran as needed, increased dosing Ativan IV as needed given home dose of Valium and in light of dementia H&H every 6 hours Attestations 2 Medical Necessity Statement*: Patient require greater than 2 midnight stay for acute GI bleeding. Patient will be closely monitored first stabilization. GI consult for possible urgent EGD or early a.m. Coding Level of Care Code Acute Code for Chg Fwd Diagnoses Intractable vomiting R11.10 Melena K92.1 Hematochezia K92.1 Other malaise and fatigue R53.81; R53.83 Chronic constipation K59.09 Diverticulosis K57.90 History of diverticulitis of colon Z87.19 Lumbar disc disease with radiculopathy M51.16 Lumbar stenosis with neurogenic claudication M48.062
[2023-10-07 19:14] LABS: Lactic Sepsis W/Reflex 1.1 mmol/L (0.5-2.2)
--- NOTE | 2023-10-07 19:32 | P.CONIM_ITS ---
Providers/Reason For Consult 2 Consulting Physician/Specialty*: Medicine Reason for Consult*: UGI bleed, evaluate for EGD Requesting Physician: Janak Marino DO Attending Physician: Janak Marino DO Primary Care Provider: Emily Beebe History of Present Illness History of Present Illness Joselyn Melara is a 78 year old female who presents to ED with malaise and one to several weeks of vomiting and diarrhea. History imprecise due to patient's dementia. Family initially attributed red coloration of diarrhea and emesis to a flavored drink the patient has taking frequently. Patient denies NSAID use and is anticipating outpatient spinal injections for chronic back pain, as she reports that was successful several years ago. Review of Systems 2 General: Reports: 10 or more systems reviewed and unremarkable except in HPI and below Const: Reports: chills, body aches and malaise; Denies: night sweats or diaphoresis ENMT: Denies: epistaxis Card: Denies: chest pain Resp: Denies: dyspnea or hemoptysis GI: Reports: nausea, vomiting, hematemesis, coffee ground emesis, diarrhea and hematochezia Musc: Reports: back pain and extremity pain Skin/Breast: Denies: rash, pruritus or skin pain Neuro: Denies: sensory changes or lack of coordination Abhishek/Lymph: Denies: easy bruising or easy bleeding Medications/Allergies Home Medications Medication Instructions Recorded Confirmed Last Taken Type atorvastatin 40 mg tablet (Lipitor) 40 mg PO DAILY 12/02/20 10/07/23 10/06/23 History rrfkklyell-dfytinpvmgvmn-rifeqyca 1 cap PO Q4H PRN Migraine Headache 12/02/20 10/07/23 10/07/23 History 50 mg-325 mg-40 mg capsule diazepam 10 mg tablet 10 mg PO BID PRN Anxiety 12/02/20 10/07/23 10/07/23 History diphenoxylate-atropine 2.5 1 tab PO Q8H 12/02/20 10/07/23 10/07/23 History mg-0.025 mg tablet (Lomotil) donepezil 5 mg tablet 5 mg PO DAILY 12/02/20 10/07/23 10/06/23 History furosemide 20 mg tablet 10 mg PO QAM 12/02/20 10/07/23 10/06/23 History hydrocodone 5 mg-acetaminophen 325 1 tab PO Q6H PRN Pain 12/02/20 10/07/23 12/15/20 History mg tablet topiramate 50 mg tablet (Topamax) 50 mg PO BID 12/02/20 10/07/23 10/06/23 History venlafaxine 150 mg 150 mg PO DAILY 12/02/20 10/07/23 12/15/20 History capsule,extended release 24 hr magnesium oxide 400 mg PO DAILY 08/16/21 10/07/23 10/06/23 History pantoprazole 40 mg tablet,delayed 40 mg PO BID #60 tabs 02/06/22 10/07/23 10/06/23 Rx release ondansetron HCl 4 mg tablet 4 mg PO Q4H #14 tabs 10/05/23 10/07/23 10/07/23 Rx Allergies Allergy/AdvReac Type Severity Reaction Status Date / Time No Known Allergies Allergy Verified 10/07/23 14:28 Current Medications Generic Name Dose Route Start Last Admin Trade Name Freq PRN Reason Stop Dose Admin Pantoprazole Sodium 40 mg/ 100 mls @ 20 mls/hr 10/07/23 18:00 10/07/23 18:19 Sodium Chloride IV 8 mg/hr .Q5H FRANKIE 20 mls/hr Administration 8 MG/HR PFSH Acute 2 PFSH: Medical History Diverticulitis Lumbar stenosis with neurogenic claudication Lumbar disc disease with radiculopathy Chronic constipation Surgical History History of appendectomy History of partial hysterectomy History of cholecystectomy Family History Denies family history of Anesthesia complication Social History Smoking and tobacco/nicotine status: never used tobacco/nicotine Second hand smoke exposure: No Alcohol intake: never Substance/Drug Use: never Adopted: No service: No Female Reproductive History: Spontaneous abortions: No Vitals/I&O/Wt Last Vital Signs Temp 97.5 F L 10/07/23 13:59 Pulse 91 10/07/23 19:20 Resp 16 10/07/23 16:28 BP 134/89 10/07/23 19:20 Pulse Ox 99 10/07/23 19:20 O2 Del Method Room Air 10/07/23 17:49 Weight last 48 hrs Weight 130 lb Physical Exam 2 Const: COMMON NORMALS: no acute distress, average body habitus, patient oriented x3 and alert GENERAL APPEARANCE: cooperative, comfortable and well kempt ORIENTATION/CONSCIOUSNESS: Yes oriented to person and Yes oriented to place HENMT: COMMON NORMALS: normocephalic, atraumatic, hearing grossly normal bilaterally, external ears normal and Normal external nose present HEAD & SCALP: normocephalic and atraumatic FACE & SINUS: normal facial exam and face symmetric NOSE: Normal external nose present, Normal nares present and Abnormal external nose present EXTERNAL EAR: Yes external ears normal Eye: COMMON NORMALS: EOMs intact bilaterally and no scleral icterus GENERAL EYE: appearance normal, both eyes and all related structures ALIGNMENT: Yes alignment normal PERIORBITAL: periorbital findings normal EYELID: eyelids normal Neck/C-Spine: COMMON NORMALS: full ROM, supple and no JVD GENERAL: Yes normal visual inspection and Yes trachea midline Resp: COMMON NORMALS: normal respiratory effort, No retractions and No use of accessory muscles EFFORT & INSPECTION: Yes able to speak in complete sentences and Yes symmetric chest movement Cardio: COMMON NORMALS: no JVD, regular rate and regular rhythm RATE: r egular rate RHYTHM: regular rhythm PERIPHERAL PULSES: radial pulses present GI: COMMON NORMALS: Normal to inspection, nondistended, normoactive bowel sounds present, Soft to palpation and non-tender PALPATION: Yes Soft to palpation, No Guarding due to palpation present (GI) and No Rigid due to palpation RECTAL EXAM: deferred Neuro: COMMON NORMALS: patient oriented x3 SENSORIUM/ORIENTATION: Yes alert, Yes oriented to person and Yes oriented to place SPEECH: speech normal Psych: COMMON NORMALS: mental status grossly normal, cooperative, normal affect, speech normal and activity/motor behavior normal APPEARANCE: Yes grossly normal and Yes well kempt ATTITUDE: Yes calm and Yes engaged A CTIVITY/MOTOR BEHAVIOR: Yes appropriate eye contact and Yes disorganized behavior SPEECH: Yes normal speech MOOD & AFFECT: Yes euthymic mood T HOUGHT PROCESS: disorganized THOUGHT CONTENT: Yes Normal thought content present ATTENTION/CONCENTRATION: Yes attention grossly intact M ALVARO/COGNITION: Yes memory grossly intact (although imprecise) and Yes cognition grossly intact INSIGHT: Limited insight present (Psych) J UDGEMENT: Fair judgement present (Psych) Skin: COMMON NORMALS: no rashes or lesions noted GENERAL SKIN EXAM: no rashes or lesions noted Data 10/07/23 15:20 10/07/23 15:20 CT Abd/Pel: I personally reviewed and interpreted this imaging study as follows: My impression: Focal Pneumobilia likely benign in setting of recent vigorous retching. Gallbladder surgically absent. No notable gastric wall thickening/masses. Diverticulosis without radiographic evidence of diverticulitis. Radiologist's impression: 1. No acute findings. 2. Incidental findings above. A&P Assessment and plan (1) Hematochezia: (2) Melena: (3) Intractable vomiting: Plan UGI bleed, likely Olive-Barry tear from vigorous retching. -NPO, supportive care per primary medical service -Will discuss possible EGD tomorrow with Dr. Harris Coding Level of Care Code Acute Code for Chg Fwd Diagnoses Hematochezia K92.1 Melena K92.1 Intractable vomiting R11.10
--- NOTE | 2023-10-07 19:59 | PC.NURSE ---
Report was called Angie GRANADOS. All questions and concerns were addressed at time of report.
[2023-10-07 22:06] LABS: Troponin 5 6HR 14.41 ng/L (0-10)
[2023-10-07 22:07] LABS: Troponin 5 6HR Delta -5.59 ng/L (0-12)
[2023-10-07] MEDS: dextrose 5%-sod chloride 0.9% 1,000 ML 100 ML IV (22:48)
[2023-10-08] VITALS (8 sets, daily range): BP systolic 132–150; BP diastolic 73–93; PULSE 71–85; RESP 15–22; TEMP 36.4–37.2; O2SAT 95–100
[2023-10-08 02:03] LABS: Basophils % 0.4 %; Eosinophils # 0.1 10^3/uL (0.0-0.8); Eosinophils % 2.6 %; Hematocrit 29.8 % (36-47); Lymphocytes # 0.9 10^3/uL (0.8-4.8); Lymphocytes % 34.1 %; Mean Corpuscular HGB Conc 34.2 g/dL (30-55); Mean Corpuscular Hemoglobin 34.2 pg (27-33); Mean Platelet Volume 12.1 fL (7.4-10.4); Monocytes # 0.3 10^3/uL (0.2-0.9); Monocytes % 11.7 %; Neutrophils # 1.39 10^3/uL (1.8-7.7); Neutrophils % 50.8 %; Nucleated Red Blood Cells % 0 %; Platelet Count 162 10^3/cmm (157-399); Red Blood Count 2.98 10^6/uL (3.85-5.65); Red Cell Distribution Width 14.1 % (12.1-15.1); White Blood Count 2.73 10^3/uL (3.29-11.43)
[2023-10-08] MEDS: pantoprazole 40 MG in sodium chloride 0.9% (plus) 100 ML 20 MG IV ×2 (04:19→09:32)
[2023-10-08] MEDS: HYDROcodone-acetaminophen 5-325 mg Tablet 1 TAB PO ×3 (04:29→19:50)
[2023-10-08 05:49] LABS: Anion Gap 11.2 (5-19); Blood Urea Nitrogen 13 mg/dL (8-23); Calcium 8.3 mg/dL (8.5-10.5); Carbon Dioxide 23 mmol/L (22-29); Chloride 106 mmol/L (98-107); Creatinine Clr Calc Pharmacy 29.5616; Ferritin 282 ng/mL (15-150); Glucose 114 mg/dL (65-115); Iron 36 ug/dL (37-145); Osmolality Calculated 285 mOsm/kg (285-295); Percent Saturation 29.5 % (20-50); Phosphorus 2.8 mg/dL (2.5-4.5); Potassium 3.2 mmol/L (3.5-5.1); Sodium 137 mmol/L (136-145); Total Iron Binding Capacity 122 mcg/dl; Unsaturated Iron Binding 86 ug/dL (112-347)
--- NOTE | 2023-10-08 06:58 | P.PN_ITS ---
Subjective 2 Subjective: Patient denies any further nausea/emesis/BM overnight, denies abdominal pain. BP stable. Remains NPO for possible EGD today pending evaluation by Dr. Harris. Vitals/I&O/Wt Last Vital Signs Temp 98.4 F 10/08/23 04:00 Pulse 78 10/08/23 04:00 Resp 16 10/08/23 04:00 BP 138/86 10/08/23 04:00 Pulse Ox 95 10/08/23 04:00 O2 Del Method Room Air 10/08/23 04:00 10/07/23 10/07/23 10/08/23 14:59 22:59 06:59 Intake Total 1089 / 1089 100 / 1189 Output Total 0 / 0 0 / 0 Balance 1089 / 1089 100 / 1189 Weight last 48 hrs Weight 98 lb Weight 100 lb 11.2 oz Weight 130 lb Physical Exam 2 Const: COMMON NORMALS: no acute distress, average body habitus, patient oriented x3 and alert GENERAL APPEARANCE: cooperative, comfortable and well kempt ORIENTATION/CONSCIOUSNESS: Yes oriented to person and Yes oriented to place HENMT: COMMON NORMALS: normocephalic, atraumatic, hearing grossly normal bilaterally, external ears normal and Normal external nose present HEAD & SCALP: normocephalic and atraumatic FACE & SINUS: normal facial exam and face symmetric NOSE: Normal external nose present, Normal nares present and Abnormal external nose present EXTERNAL EAR: Yes external ears normal Eye: COMMON NORMALS: EOMs intact bilaterally and no scleral icterus GENERAL EYE: appearance normal, both eyes and all related structures ALIGNMENT: Yes alignment normal PERIORBITAL: periorbital findings normal EYELID: eyelids normal Neck/C-Spine: COMMON NORMALS: full ROM, supple and no JVD GENERAL: Yes normal visual inspection and Yes trachea midline Resp: COMMON NORMALS: normal respiratory effort, No retractions and No use of accessory muscles EFFORT & INSPECTION: Yes able to speak in complete sentences and Yes symmetric chest movement Cardio: COMMON NORMALS: no JVD, regular rate and regular rhythm RATE: r egular rate RHYTHM: regular rhythm PERIPHERAL PULSES: radial pulses present GI: COMMON NORMALS: Normal to inspection, nondistended, normoactive bowel sounds present, Soft to palpation and non-tender PALPATION: Yes Soft to palpation, No Guarding due to palpation present (GI) and No Rigid due to palpation RECTAL EXAM: deferred Neuro: COMMON NORMALS: patient oriented x3 SENSORIUM/ORIENTATION: Yes alert, Yes oriented to person and Yes oriented to place SPEECH: speech normal Psych: COMMON NORMALS: mental status grossly normal, cooperative, normal affect, speech normal and activity/motor behavior normal APPEARANCE: Yes grossly normal and Yes well kempt ATTITUDE: Yes calm and Yes engaged A CTIVITY/MOTOR BEHAVIOR: Yes appropriate eye contact and Yes disorganized behavior SPEECH: Yes normal speech MOOD & AFFECT: Yes euthymic mood T HOUGHT PROCESS: disorganized THOUGHT CONTENT: Yes Normal thought content present ATTENTION/CONCENTRATION: Yes attention grossly intact M ALVARO/COGNITION: Yes memory grossly intact (although imprecise) and Yes cognition grossly intact INSIGHT: Limited insight present (Psych) J UDGEMENT: Fair judgement present (Psych) Skin: COMMON NORMALS: no rashes or lesions noted GENERAL SKIN EXAM: no rashes or lesions noted Data 10/08/23 01:52 10/08/23 05:07 A&P Assessment and plan (1) Hematochezia: (2) Melena: (3) Intractable vomiting: Plan UGI bleed, likely Olive-Barry tear from vigorous retching. -NPO, PPI, supportive care per primary medical service -Will discuss possible EGD today with covering general surgeon Dr. Harris Attestations 2 Medical Necessity Statement*: Requires hospitalization for IV resuscitation and management of GI bleed Coding Level of Care Code Acute Code for Chg Fwd Diagnoses Hematochezia K92.1 Melena K92.1 Intractable vomiting R11.10
[2023-10-08 07:54] LABS: Folate Level 9.2 ng/mL (4.8-37.3)
[2023-10-08 08:09] LABS: Vitamin B12 > 2000 pg/mL (232-1245)
[2023-10-08 08:10] LABS: Hematocrit 32.9 % (36-47)
[2023-10-08] MEDS: dextrose 5%-sod chloride 0.9% 1,000 ML 100 ML IV ×2 (09:32→21:58)
--- NOTE | 2023-10-08 10:01 | PC.CHAP ---
Pastoral Care Encounter/Spiritual Assessment Type of Contact [] Declined senior risk manager visit [] Patient/Family/Request visit [] Outpatient visit [] Follow-up visit [] Physician referral [] Code/Alert [x] Routine visit [] Staff referral [] Actively dying [] Patient sleeping [] Family support [] [] Out of room [] Palliative care [] [] Receiving care in room [] Pre-surgical visit [] Trauma [] Long length of stay [] ICU visit [] Other: Relational/Emotional Strength [] Patient feels connected with others/family/visitors/staff [] Distress [] Loneliness/isolation [] Abandonment Spirituality of Patient [x] Person of Pricila [] Attends Religion of their Pricila [x] Believes in Prayer [] Reads Bible or Adventism materials [] There are Spiritual issues to be addressed [employer] Consultant Interventions [x] Prayer [x] Active listening [] Non-anxious presence [] Spiritual/emotional support [] Crisis/trauma care [] Spiritual counseling [] Bereavement support [] Provided bereavement packet [] Provided Bible/devotional materials [] Provided toy/stuffed animal, coloring book to patient or family member [] Provided Communion [] Anointing/[place] [] Salvation [x] Completed spiritual assessment [] Other: Impact on Illness or Injury [] Angry [] Fearful [] Anxious [] Often cries [] Exhaustion [] Unable to work [] Unable to attend episcopalian [] Unable to walk/stand [] Unable to read [] Unable to drive [] Unable to eat/drink [] Unable to sleep [] Unable to be with family [] Patient intubated [] Other: Summary Time spent with patient 5 min
[2023-10-08] MEDS: ondansetron 2 mg/ML SDV 2 mL 8 MG IVP (12:12)
--- NOTE | 2023-10-08 12:21 | P.PN_ITS ---
Subjective 2 Subjective: Patient was seen this morning, denies any fevers, chills, no cough, no bloody vomit, no bloody or black stools, no abdominal pain Vitals/I&O/Wt Last Vital Signs Temp 98.3 F 10/08/23 11:40 Pulse 82 10/08/23 11:40 Resp 21 H 10/08/23 11:40 BP 139/92 10/08/23 11:40 Pulse Ox 100 10/08/23 11:40 O2 Del Method Room Air 10/08/23 11:40 10/07/23 10/08/23 10/08/23 22:59 06:59 14:59 Intake Total 1089 / 1089 100 / 1189 1100 / 1100 Output Total 0 / 0 0 / 0 Balance 1089 / 1089 100 / 1189 1100 / 1100 Weight last 48 hrs Weight 44.452 kg Weight 45.677 kg Weight 58.967 kg Physical Exam 2 Const: COMMON NORMALS: no acute distress and patient oriented x3 Resp: COMMON NORMALS: normal respiratory effort, No retractions, No use of accessory muscles and clear to auscultation bilaterally AUSCULTATION: clear to auscultation bilaterally Cardio: COMMON NORMALS: regular rate, regular rhythm, S1 normal heart sound present and S2 normal heart sound present RATE: regular rate RHYTHM: r egular rhythm HEART SOUNDS: S1 normal heart sound present and S2 normal heart sound present GI: COMMON NORMALS: Normal to inspection, nondistended, normoactive bowel sounds present and non-tender Extremity: COMMON NORMALS: no pedal edema Neuro: COMMON NORMALS: patient oriented x3 Psych: COMMON NORMALS: mental status grossly normal Data 10/08/23 07:43 10/08/23 05:07 A&P Assessment and plan (1) Intractable vomiting: (2) Melena: (3) Hematochezia: (4) Other malaise and fatigue: (5) Chronic constipation: (6) Diverticulosis: (7) History of diverticulitis of colon: (8) Lumbar disc disease with radiculopathy: (9) Lumbar stenosis with neurogenic claudication: Plan 78-year-old white female with a known history of diverticular disease presents with 5 to 6-day history of weakness fatigue chills and bodyaches subsequently followed by hematochezia and melena. Admit to CSU. N.p.o. except for chips sips and ice Surgery on consult Hold p.o. meds Switch to Protonix 40 IV twice daily Zofran as needed, increased dosing Switch to home diazepam Hemoglobin stable Plan for today await surgical evaluation for consideration of EGD, no recurrent bloody or black stools, no hematemesis, will she has tolerated hydrocodone, sips and chips, start her home Effexor, Valium, Topamax due to concerns for withdrawal Attestations 2 Medical Necessity Statement*: Patient requires hospitalization for concerns for Olive-Barry tear, hematochezia and melena Diagnoses Intractable vomiting R11.10 Melena K92.1 Hematochezia K92.1 Other malaise and fatigue R53.81; R53.83 Chronic constipation K59.09 Diverticulosis K57.90 History of diverticulitis of colon Z87.19 Lumbar disc disease with radiculopathy M51.16 Lumbar stenosis with neurogenic claudication M48.062
[2023-10-08] MEDS: LORazepam 2 mg/mL INJ 1 mL 1 MG IVP (12:27)
[2023-10-08 12:28] LABS: C.Diff PCR (Lab) NEGATIVE (Negative)
[2023-10-08] MEDS: pantoprazole 40 mg SDV IVP (13:50)
[2023-10-08 14:52] LABS: Hematocrit 31.2 % (36-47)
--- NOTE | 2023-10-08 14:52 | PC.NURSE ---
Nursing staff zero'd out the bed when she was up to use the bathroom. Patient had said that staff had weighed her this morning and it was security systems technician than she thought it should be. Patient returned to bed and was weighed again today, it was 101.9. This is recorded. The bed had normal bedding and one pillow and one blanket.
--- NOTE | 2023-10-08 16:51 | PC.NURSE ---
Provider gave order for lanolin ointment for patient to apply to lips.
[2023-10-08] MEDS: topiramate 100 mg Tablet 50 MG PO (17:10)
[2023-10-08] MEDS: diazePAM 5 mg Tablet 10 MG PO (20:22)
[2023-10-09] VITALS (10 sets, daily range): BP systolic 127–153; BP diastolic 59–96; PULSE 64–87; RESP 16–21; TEMP 36.6–36.8; O2SAT 94–99
[2023-10-09] MEDS: pantoprazole 40 mg SDV IVP ×2 (00:09→12:07)
[2023-10-09] MEDS: HYDROmorphone 1 mg/mL INJ 1 mL 0.5 MG IVP (00:23)
[2023-10-09] MEDS: ondansetron 2 mg/ML SDV 2 mL 8 MG IVP (00:49)
[2023-10-09] MEDS: HYDROcodone-acetaminophen 5-325 mg Tablet 1 TAB PO ×3 (00:52→10:22)
--- NOTE | 2023-10-09 01:24 | PC.NURSE ---
Patient stated that she would like to talk to the hospital administer, nurse explained that hospital administer is not in the hospital at this moment. Nurse asked patient if she would like to speak to charge nurse and patient stated I dont care who I talk to as long as I can talk to someone. I spoke with charge nurse and she went to talk to patient.
--- NOTE | 2023-10-09 01:31 | PC.NURSE ---
Patient stated that something needs to be done about the swelling in her hands and that she will not allow her rings to be cut off. This nurse applied lotion to her left ring finger and was able to get rings off. She was given a bag to put them in to keep them with her until can take them home home with him. She then stated that her ring on her right middle finger needed to come off as well. This nurse applied lotion and had patient try to remove ring but was not able to do it. ice pack was provided to patient to relieve swelling and to try again in 20 minutes. Lotion was applied to middle finger on patient right hand and ring was removed, placed in bag and patient place it in her belonging bag to the right of her bed.
--- NOTE | 2023-10-09 01:32 | PC.NURSE ---
Charge nurse spoke with patient. The patient having many complaints which she felt were not being addressed. The patient had complaints of pain she felt was not being adequately controlled, that her IV was bothering her, that we were not making her better and that the surgeon had not come to see her yet. The patient had been recieving PO pain medication PRN and her IV had been replaced today due to complaints of previous IV not working. The charge nurse explained that we will speak with the doctor to find something to better help control her pain and that if the IV was bothering her the only option was to put in a new IV. The patients nurse obtained order for pain medication and the charge nurse put in a new IV and removed the old IV.
--- NOTE | 2023-10-09 01:38 | PC.NURSE ---
Patient stated that she was still in pain and needed something for pain, Dr Burgess was notified and approved order for 0.5 mg hydromophone ivp once. Order placed and administered per Dr adams.
[2023-10-09 03:53] LABS: Basophils % 0.7 %; Eosinophils # 0.2 10^3/uL (0.0-0.8); Eosinophils % 5.3 %; Hematocrit 30.6 % (36-47); Lymphocytes % 33.7 %; Mean Corpuscular HGB Conc 33.7 g/dL (30-55); Mean Corpuscular Hemoglobin 34.1 pg (27-33); Mean Corpuscular Volume 101.3 fl (85-98); Mean Platelet Volume 10.2 fL (7.4-10.4); Monocytes # 0.4 10^3/uL (0.2-0.9); Monocytes % 13.5 %; Neutrophils # 1.31 10^3/uL (1.8-7.7); Neutrophils % 46.4 %; Nucleated Red Blood Cells % 0 %; Platelet Count 144 10^3/cmm (157-399); Red Blood Count 3.02 10^6/uL (3.85-5.65); Red Cell Distribution Width 13.9 % (12.1-15.1); White Blood Count 2.82 10^3/uL (3.29-11.43)
[2023-10-09 04:58] LABS: Anion Gap 12.1 (5-19); Blood Urea Nitrogen 6 mg/dL (8-23); Calcium 7.8 mg/dL (8.5-10.5); Carbon Dioxide 19 mmol/L (22-29); Chloride 113 mmol/L (98-107); Creatinine Clr Calc Pharmacy 42.7053; Glucose 122 mg/dL (65-115); Osmolality Calculated 291 mOsm/kg (285-295); Potassium 3.1 mmol/L (3.5-5.1); Sodium 141 mmol/L (136-145)
[2023-10-09] MEDS: lidocaine 1% 5 ML in potassium chloride premix 100 ML 52.5 ML IV (08:29)
[2023-10-09] MEDS: topiramate 100 mg Tablet 50 MG PO ×2 (08:30→16:16)
[2023-10-09] MEDS: donepezil 5 MG Tablet PO (08:30)
[2023-10-09] MEDS: diazePAM 5 mg Tablet 10 MG PO ×2 (08:33→21:15)
[2023-10-09] MEDS: venlafaxine ER (24HR) 150 mg Capsule PO (08:44)
[2023-10-09 08:50] LABS: D Dimer 2.37 ug/mLFEU (0-0.59)
[2023-10-09 09:01] LABS: Thyroid Stimulating Hormone 1.02 uIU/mL (0.27-4.20)
[2023-10-09 09:11] LABS: Erythrocyte Sedimentation Rate 6 mm/hr (0-15)
[2023-10-09 09:13] LABS: Alanine Aminotransferase 8 U/L (0-33); Albumin Level 2.6 g/dL (3.5-5.2); Alkaline Phosphatase 65 U/L (35-105); Aspartate Amino Transferase 19 U/L (0-32); C Reactive Protein 48.2 mg/L (0.0-4.9); Globulin 2.1 g/dL (1.3-4.6); Lipase 25 U/L (13-60); Total Bilirubin 0.2 mg/dL (0.15-1.2); Total Protein 4.7 g/dL (6.6-8.7)
--- NOTE | 2023-10-09 09:20 | USCV_ITS ---
Joselyn Melara Age: 78 Gender: F : 1945 Exam Date: 10/09/2023 09:55 Ordering Phys: Fabien Erickson MD Technologist: KATT Exam Location: [facility] [place] Indication: BLE PAIN AND SWELLING HISTORY: Lower extremity swelling. Lower extremity pain. PROCEDURES: Venous duplex imaging was performed in bilateral lower extremities. The following venous structures were evaluated: common femoral vein, profunda vein, proximal portion of the greater saphenous vein, superficial femoral vein, and the popliteal vein. In addition, the posterior tibial and peroneal trunk were evaluated. Serial compression, augmentation maneuvers, and spectral Doppler flow evaluation were performed. FINDINGS: Normal 2-D Doppler and augmentation and compressibility throughout the lower extremity venous structures. Additional imaging through the proximal calf veins also reveals no thrombus. Limited evaluation of the greater saphenous vein is patent with no thrombus. CONCLUSIONS No DVT bilateral lower extremities. Dr. Rina Vale DO (Electronically Signed) Final Date: 09 October 2023 10:28 S
[2023-10-09 09:38] LABS: Free T4 Free Thyroxine 1.18 ng/dL (0.82-1.77); T3 Free 2.2 PG/ML (2.0-4.4)
[2023-10-09] MEDS: dextrose 5%-sod chloride 0.9% 1,000 ML 100 ML IV (12:07)
[2023-10-09] MEDS: morphine 4 mg/mL SDV 1 mL 2 MG IVP (13:05)
[2023-10-09] MEDS: metoclopramide 5 mg/mL SDV 2 mL IVP (13:06)
--- NOTE | 2023-10-09 14:42 | P.PN_ITS ---
Subjective 2 Subjective: Patient was seen this morning, she is very frustrated about her lack of improvement here in the hospital, she tells me that she continues to feel nauseous, she has difficulty swallowing at times, she is lost about 50 pounds in the last few years, without trying, she tells me that she has not adhere to a liquid diet and is whenever she eats will typically get stuck in her stomach stuck in her throat, and she ends up vomiting it up, she also tells me that she has a lot of back pain and she has trouble sleeping, I apologized to patient as there was plans on hopefully for her to have an EGD yesterday but it did not come to fruition, and the next time slot for it to be done will be tomorrow, she is understandable of this and I apologized to her, she has not had any bloody or black stools since being in the hospital but continues to have nausea, I had a detailed discussion again with patient and her at bedside, I discussed with them that her CAT scan does not show any acute findings that would explain her nausea and vomiting and her hematemesis and bloody stools, her venous ultrasound was negative for DVT her hemoglobin stable she does show slight evidence of iron deficiency anemia, thyroid functions within normal limits, I reviewed her chart in detail, back in 2020 Dr. Dacosta performed EGD and colonoscopy as she had complaints of hematochezia and she was found to have severe gastritis with thickening at the pylorus of this stomach, concern for gastric outlet obstruction, certainly this could be playing a role in her weight loss her difficulty swallowing at times, her adherence to a clear liquid diet as solid food causes her to feel nauseous, I spoke to general surgery, the plan will be to do an EGD on her tomorrow, I have was able to answer her and her 's questions, and again I apologized to them about the delay in performing the EGD, they are understandable Vitals/I&O/Wt Last Vital Signs Temp 97.8 F 10/09/23 12:23 Pulse 78 10/09/23 14:00 Resp 18 10/09/23 13:05 BP 153/93 10/09/23 12:23 Pulse Ox 94 10/09/23 12:23 O2 Del Method Room Air 10/09/23 12:23 10/08/23 10/09/23 10/09/23 22:59 06:59 14:59 Intake Total 1014.000 / 2200.000 40 / 2240.000 1105 / 1105 Output Total 60 / 60 Balance 1014.000 / 2200.000 -20 / 2180.000 1105 / 1105 Weight last 48 hrs Weight 55.474 kg Weight 46.068 kg Weight 44.452 kg Weight 45.677 kg Physical Exam 2 Const: COMMON NORMALS: no acute distress and patient oriented x3 Resp: COMMON NORMALS: normal respiratory effort, No retractions, No use of accessory muscles and clear to auscultation bilaterally AUSCULTATION: clear to auscultation bilaterally Cardio: COMMON NORMALS: regular rate, regular rhythm, S1 normal heart sound present and S2 normal heart sound present RATE: regular rate RHYTHM: r egular rhythm HEART SOUNDS: S1 normal heart sound present and S2 normal heart sound present GI: COMMON NORMALS: Normal to inspection, nondistended, normoactive bowel sounds present and non-tender Extremity: COMMON NORMALS: no pedal edema Neuro: COMMON NORMALS: patient oriented x3 Data 10/09/23 03:08 10/09/23 03:08 Micro: Microbiology 10/08/23 11:15 Stool Lactoferrin - Final Stool Occult Blood (FIT) - Final A&P Assessment and plan (1) Intractable vomiting: (2) Melena: (3) Hematochezia: (4) Other malaise and fatigue: (5) Chronic constipation: (6) Diverticulosis: (7) History of diverticulitis of colon: (8) Lumbar disc disease with radiculopathy: (9) Lumbar stenosis with neurogenic claudication: Plan 78-year-old white female with a known history of diverticular disease presents with 5 to 6-day history of weakness fatigue chills and bodyaches subsequently followed by hematochezia and melena. And bloody vomit ? With history of 50 pound weight loss ? History of EGD and colonoscopy, EGD in the past showed severe gastritis and concerns for gastric outlet obstruction Admit to CSU. N.p.o. except for chips sips and ice Surgery on consult, spoke to Dr. Harris plans on EGD tomorrow Switch to Protonix 40 IV twice daily Zofran as needed, increased dosing Switch to home diazepam Hemoglobin stable Attestations 2 Medical Necessity Statement*: Patient requires hospitalization for severe gastritis concerns, consider gastric outlet obstruction, anemia hematochezia Diagnoses Intractable vomiting R11.10 Melena K92.1 Hematochezia K92.1 Other malaise and fatigue R53.81; R53.83 Chronic constipation K59.09 Diverticulosis K57.90 History of diverticulitis of colon Z87.19 Lumbar disc disease with radiculopathy M51.16 Lumbar stenosis with neurogenic claudication M48.062
--- NOTE | 2023-10-09 14:46 | P.PN_ITS ---
Subjective 2 Subjective: Patient seen and examined. She still has nausea and vomiting but denies any hematemesis. She does report that she still having some melena however. Denies any significant abdominal pain Vitals/I&O/Wt Last Vital Signs Temp 97.7 F 10/10/23 13:26 Pulse 90 10/10/23 13:26 Resp 20 H 10/10/23 13:26 BP 170/116 10/10/23 13:26 Pulse Ox 96 10/10/23 13:26 O2 Del Method Room Air 10/10/23 13:26 10/09/23 10/10/23 10/10/23 22:59 06:59 14:59 Intake Total 1000 / 2105 105 / 105 Balance 1000 / 2105 105 / 105 Weight last 48 hrs Weight 120 lb 7 oz Weight 122 lb 4.8 oz Weight 101 lb 9 oz Physical Exam 2 Narrative: General: No acute distress, awake alert and oriented x 3 Abdomen: Soft, nontender, nondistended, no guarding rebound or masses Data 10/10/23 03:21 10/10/23 03:21 A&P Assessment and plan (1) Hematemesis: (2) Intractable vomiting: (3) Melena: Plan Tomorrow for EGD The risks and benefits of the procedure, including bleeding, infection, intestinal perforation requiring surgery, missed lesion were explained to the patient. The patient is understanding of the risks and wishes to proceed. Attestations 2 Medical Necessity Statement*: Per primary Coding Level of Care Code 23396 Diagnoses Hematemesis K92.0 Intractable vomiting R11.10 Melena K92.1
[2023-10-09] MEDS: acetaminophen 325 mg Tablet 650 MG PO (17:38)
[2023-10-10] VITALS (12 sets, daily range): BP systolic 135–170; BP diastolic 70–116; PULSE 59–90; RESP 16–20; TEMP 36.3–36.8; O2SAT 94–100; BMI 22.7
[2023-10-10] MEDS: pantoprazole 40 mg SDV IVP ×3 (01:00→23:59)
[2023-10-10 03:51] LABS: Basophils % 1.1 %; Eosinophils # 0.1 10^3/uL (0.0-0.8); Eosinophils % 3.9 %; Hematocrit 31.6 % (36-47); Lymphocytes # 0.9 10^3/uL (0.8-4.8); Lymphocytes % 30.6 %; Mean Corpuscular HGB Conc 33.2 g/dL (30-55); Mean Corpuscular Hemoglobin 33.3 pg (27-33); Mean Corpuscular Volume 100.3 fl (85-98); Mean Platelet Volume 10.4 fL (7.4-10.4); Monocytes # 0.3 10^3/uL (0.2-0.9); Monocytes % 10.6 %; Neutrophils # 1.52 10^3/uL (1.8-7.7); Neutrophils % 53.4 %; Nucleated Red Blood Cells % 0 %; Platelet Count 147 10^3/cmm (157-399); Red Blood Count 3.15 10^6/uL (3.85-5.65); Red Cell Distribution Width 14.1 % (12.1-15.1); White Blood Count 2.84 10^3/uL (3.29-11.43)
[2023-10-10 04:17] LABS: Alanine Aminotransferase 10 U/L (0-33); Albumin Level 2.7 g/dL (3.5-5.2); Alkaline Phosphatase 70 U/L (35-105); Anion Gap 13.1 (5-19); Aspartate Amino Transferase 21 U/L (0-32); Blood Urea Nitrogen 4 mg/dL (8-23); Calcium 8.1 mg/dL (8.5-10.5); Carbon Dioxide 17 mmol/L (22-29); Chloride 113 mmol/L (98-107); Creatinine Clr Calc Pharmacy 42.7053; Globulin 2.5 g/dL (1.3-4.6); Glucose 103 mg/dL (65-115); Magnesium 1.9 mg/dL (1.7-2.3); Osmolality Calculated 287 mOsm/kg (285-295); Phosphorus 2.9 mg/dL (2.5-4.5); Potassium 3.1 mmol/L (3.5-5.1); Sodium 140 mmol/L (136-145); Total Bilirubin 0.2 mg/dL (0.15-1.2); Total Protein 5.2 g/dL (6.6-8.7)
[2023-10-10] MEDS: donepezil 5 MG Tablet PO (08:13)
[2023-10-10] MEDS: topiramate 100 mg Tablet 50 MG PO ×2 (08:13→17:49)
[2023-10-10] MEDS: venlafaxine ER (24HR) 150 mg Capsule PO (08:13)
[2023-10-10] MEDS: lidocaine 1% 5 ML in potassium chloride premix 100 ML 52.5 ML IV (08:59)
--- NOTE | 2023-10-10 12:04 | P.PN_ITS ---
Subjective 2 Subjective: Patient was seen this morning, no episodes of nausea or vomiting overnight, no bloody or black stools, no hematemesis, she is awaiting her EGD sometime this morning, is at bedside, discussed following up EGD results, minimal have PT OT see her, see how she does with ambulation, Vitals/I&O/Wt Last Vital Signs Temp 98.0 F 10/10/23 00:20 Pulse 64 10/10/23 09:07 Resp 20 H 10/10/23 09:07 BP 148/76 10/10/23 09:07 Pulse Ox 95 10/10/23 09:07 O2 Del Method Room Air 10/09/23 16:00 10/09/23 10/10/23 10/10/23 22:59 06:59 14:59 Intake Total 1000 / 2105 105 / 105 Balance 1000 / 2105 105 / 105 Weight last 48 hrs Weight 54.63 kg Weight 55.474 kg Weight 46.068 kg Physical Exam 2 Const: COMMON NORMALS: no acute distress and patient oriented x3 Resp: COMMON NORMALS: normal respiratory effort, No retractions, No use of accessory muscles and clear to auscultation bilaterally AUSCULTATION: clear to auscultation bilaterally Cardio: COMMON NORMALS: regular rate, regular rhythm, S1 normal heart sound present and S2 normal heart sound present RATE: regular rate RHYTHM: r egular rhythm HEART SOUNDS: S1 normal heart sound present and S2 normal heart sound present GI: COMMON NORMALS: Normal to inspection, nondistended, normoactive bowel sounds present and non-tender Extremity: COMMON NORMALS: no pedal edema Neuro: COMMON NORMALS: patient oriented x3 Psych: COMMON NORMALS: mental status grossly normal Data 10/10/23 03:21 10/11/23 04:53 A&P Assessment and plan (1) Intractable vomiting: (2) Melena: (3) Hematochezia: (4) Other malaise and fatigue: (5) Chronic constipation: (6) Diverticulosis: (7) History of diverticulitis of colon: (8) Lumbar disc disease with radiculopathy: (9) Lumbar stenosis with neurogenic claudication: Plan 78-year-old white female with a known history of diverticular disease presents with 5 to 6-day history of weakness fatigue chills and bodyaches subsequently followed by hematochezia and melena. And bloody vomit ? With history of 50 pound weight loss ? History of EGD and colonoscopy, EGD in the past showed severe gastritis and concerns for gastric outlet obstruction Admit to CSU. N.p.o. except for chips sips and ice Switch to Protonix 40 IV twice daily Zofran as needed, increased dosing Switch to home diazepam Hemoglobin stable Attestations 2 Medical Necessity Statement*: patient requires hospitalization for gastric outlet obstruction Diagnoses Intractable vomiting R11.10 Melena K92.1 Hematochezia K92.1 Other malaise and fatigue R53.81; R53.83 Chronic constipation K59.09 Diverticulosis K57.90 History of diverticulitis of colon Z87.19 Lumbar disc disease with radiculopathy M51.16 Lumbar stenosis with neurogenic claudication M48.062
[2023-10-10] MEDS: sodium chloride 0.9% 1,000 ML 30 ML IV (13:32)
--- NOTE | 2023-10-10 14:34 | P.ANESASSM_ITS ---
Pre-Anesthetic Assessment Height/Weight: Height 1.55 m Weight 54.63 kg Temp Pulse Resp BP Pulse Ox O2 Del Method 97.7 F 90 20 H 170/116 96 Room Air 10/10/23 13:26 10/10/23 13:26 10/10/23 13:26 10/10/23 13:26 10/10/23 13:26 10/10/23 13:26 Preop Diagnosis: Hemataemesis Operation Date: 10/10/23 13:30 Proposed Procedures p EGD POSSIBLE BALLON DILATION(Not Applicable) - Alf Harris, DO Familial anesthetic complications: none Last intake: NPO since CT 10/09 Social No alcohol and No tobacco Exam alert, clear to auscultation bilaterally and regular rate & rhythm Patient states the year is 2021, repetitive phrases, patient thinks she is in [place]. She is aware that she is here due to N/V. states she is mostly alert at home but sometimes wakes up confused at times. He denies a diagnosis of dementia or alzheimers. Appears to be minimizing her cognitive issues. Airway Submandibular: within normal limits Cervical ROM: within normal limits Mallampati: Class I Dentition: false Pulmonary None reported CV/HEM Anemia, Congestive Heart Failure and Hypertension ( denies a diagnosis of HTN) Chronic Renal Insufficiency Hepatic None reported GI N/V anemia Metabolic Hyperlipidemia Musc/skel Lower Back Pain and Weakness drinking liquids for the last 3 weeks unable to hold down solids, CT does not indicate a gastric obstruction. Neuropsych Dementia Anesthetic Plan ASA status: 3 Anesthesia: MAC Medications/Allergies Home Medications Medication Instructions Recorded Confirmed Last Taken Type atorvastatin 40 mg tablet (Lipitor) 40 mg PO DAILY 12/02/20 10/07/23 10/06/23 History cljwbprlft-mjsthwwzurvhi-pydhvkre 1 cap PO Q4H PRN Migraine Headache 12/02/20 10/07/23 10/07/23 History 50 mg-325 mg-40 mg capsule diazepam 10 mg tablet 10 mg PO BID PRN Anxiety 12/02/20 10/07/23 10/07/23 History diphenoxylate-atropine 2.5 1 tab PO Q8H 12/02/20 10/07/23 10/07/23 History mg-0.025 mg tablet (Lomotil) donepezil 5 mg tablet 5 mg PO DAILY 06/09/1910/07/23 10/06/23 History furosemide 20 mg tablet 10 mg PO QAM 12/02/20 10/07/23 10/06/23 History hydrocodone 5 mg-acetaminophen 325 1 tab PO Q6H PRN Pain 12/02/20 10/07/23 12/15/20 History mg tablet topiramate 50 mg tablet (Topamax) 50 mg PO BID 12/02/20 10/07/23 10/06/23 History venlafaxine 150 mg 150 mg PO DAILY 12/02/20 10/07/23 12/15/20 History capsule,extended release 24 hr magnesium oxide 400 mg PO DAILY 08/16/21 10/07/23 10/06/23 History pantoprazole 40 mg tablet,delayed 40 mg PO BID #60 tabs 02/06/22 10/07/23 10/06/23 Rx release ondansetron HCl 4 mg tablet 4 mg PO Q4H #14 tabs 10/05/23 10/07/23 10/07/23 Rx Allergies Allergy/AdvReac Type Severity Reaction Status Date / Time No Known Allergies Allergy Verified 10/07/23 14:28 Current Medications Generic Name Dose Route Start Last Admin Trade Name Freq PRN Reason Stop Dose Admin Acetaminophen 650 mg 10/07/23 20:18 10/09/23 17:38 Acetaminophen 325 Mg Tablet PO 650 mg Q6H PRN Administration Mild/Mod Pain Or Temp >/= 101 Diazepam 10 mg 10/08/23 12:21 10/09/23 21:15 Diazepam 5 Mg Tablet PO 10 mg BID PRN Administration Anxiety Donepezil HCl 5 mg 10/09/23 09:00 10/10/23 08:13 Donepezil 5 Mg Tablet PO 5 mg DAILY FRANKIE Administration Dextrose/Sodium Chloride 1,000 mls @ 50 mls/hr 10/07/23 20:18 10/10/23 04:43 Dextrose 5%-Sod Chloride 0.9% IV Infused .Q20H FRANKIE Infusion Sodium Chloride 1,000 mls @ 30 mls/hr 10/10/23 13:30 10/10/23 13:32 Sodium Chloride 0.9% IV 10/11/23 13:29 30 mls/hr .Q24H FRANKIE Administration Metoclopramide HCl 5 mg 10/09/23 12:49 10/09/23 13:06 Metoclopramide 5 Mg/Ml Sdv 2 Ml IVP 5 mg Q6H PRN Administration NAUSEA AND VOMITING Morphine Sulfate 2 mg 10/09/23 12:50 10/09/23 13:05 Morphine 4 Mg/Ml Sdv 1 Ml IVP 2 mg Q4H PRN Administration SEVERE PAIN Pantoprazole Sodium 40 mg 10/08/23 12:30 10/10/23 01:00 Pantoprazole 40 Mg Sdv IVP 40 mg Q12H FRANKIE Administration Topiramate 50 mg 10/08/23 18:00 10/10/23 08:13 Topiramate 100 Mg Tablet PO 50 mg BID FRANKIE Administration Venlafaxine HCl 150 mg 10/09/23 09:00 10/10/23 08:13 Venlafaxine Er (24hr) 150 Mg Capsule PO 150 mg DAILY FRANKIE Administration PFSH Anesthesia Medical History Diverticulitis Lumbar stenosis with neurogenic claudication Lumbar disc disease with radiculopathy Chronic constipation Surgical History History of appendectomy History of partial hysterectomy History of cholecystectomy Family History Denies family history of Anesthesia complication Social History Smoking and tobacco/nicotine status: never used tobacco/nicotine Second hand smoke exposure: No Alcohol intake: never Substance/Drug Use: never Adopted: No service: No Female Reproductive History Spontaneous abortions: No Data Anesthesia 10/10/23 03:21 10/10/23 03:21 Short CBC 10/08/23 10/09/23 10/10/23 Range/Units 14:48 03:08 03:21 WBC 2.82 L 2.84 L (3.29-11.43) 10^3/uL Hgb 10.80 L 10.30 L 10.50 L (11.27-16.99) g/dL Hct 31.2 L 30.6 L 31.6 L (36-47) % MCV 101.3 H 100.3 H (85-98) fl Plt Count 144 L 147 L (157-399) 10^3/cmm Neut % (Auto) 46.4 53.4 % Neut # (Auto) 1.31 L 1.52 L (1.8-7.7) 10^3/uL BMP 10/09/23 10/10/23 03:08 03:21 Sodium 141 140 Potassium 3.1 L 3.1 L Chloride 113 H 113 H Carbon Dioxide 19 L 17 L BUN 6 L 4 L Creatinine 0.9 0.9 Glucose 122 H 103 Calcium 7.8 L 8.1 L Liver Function 10/09/23 10/10/23 Range/Units 03:08 03:21 Total Bilirubin 0.2 0.2 (0.15-1.2) mg/dL Direct Bilirubin 0.20 (0.00-0.30) mg/dL AST 19 21 (0-32) U/L ALT 8 10 (0-33) U/L Alkaline Phosphatase 65 70 (35-105) U/L Albumin 2.6 L 2.7 L (3.5-5.2) g/dL Coags 10/09/23 03:08 ESR 6 D-Dimer 2.37 H C-Reactive Protein 48.2 H Cardiac Studies: 2 No Data to Display
--- NOTE | 2023-10-10 14:48 | P.PN_ITS ---
Vitals/I&O/Wt Last Vital Signs Temp 97.7 F 10/10/23 13:26 Pulse 90 10/10/23 13:26 Resp 20 H 10/10/23 13:26 BP 170/116 10/10/23 13:26 Pulse Ox 96 10/10/23 13:26 O2 Del Method Room Air 10/10/23 13:26 10/09/23 10/10/23 10/10/23 22:59 06:59 14:59 Intake Total 1000 / 2105 105 / 105 Balance 1000 / 2105 105 / 105 Weight last 48 hrs Weight 120 lb 7 oz Weight 122 lb 4.8 oz Weight 101 lb 9 oz Data 10/10/23 03:21 10/10/23 03:21 A&P Assessment and plan (1) Hematemesis: (2) Intractable vomiting: (3) Melena: Plan EGD The risks and benefits of the procedure, including bleeding, infection, intestinal perforation requiring surgery, missed lesion were explained to the patient. The patient is understanding of the risks and wishes to proceed. Attestations 2 Medical Necessity Statement*: Per primary Coding Level of Care Code Acute Code for Chg Fwd Diagnoses Hematemesis K92.0 Intractable vomiting R11.10 Melena K92.1
--- NOTE | 2023-10-10 15:31 | ANE.PACU2 ---
Inpatient post-anesthesia follow up: Airway intact: Yes Vital signs: Temperature 97.4 F Pulse Rate 89 Respiratory Rate 18 Blood Pressure 161/81 Pulse Oximetry 97 Oxygen Delivery Me thod Room Air Oxygen Flow Rate 2 Fraction of Inspir ed Oxygen Hydration adequate: Yes Nausea and vomiting: No Pain level: 2 Mental status: Baseline
--- NOTE | 2023-10-10 15:52 | CTR_ITS ---
PROCEDURE INFORMATION: Exam: CT Chest Without Contrast; Diagnostic Exam date and time: 10/10/2023 4:17 PM Age: 78 years old Clinical indication: Other: Weight loss, fatigue TECHNIQUE: Imaging protocol: Diagnostic computed tomography of the chest without contrast. Radiation optimization: All CT scans at this facility use at least one of these dose optimization techniques: automated exposure control; mA and/or kV adjustment per patient size (includes targeted exams where dose is matched to clinical indication); or iterative reconstruction. COMPARISON: CR (CHEST, ) 10/07/2023 3:20 PM RADIATION DOSE METRICS: Total DLP (mGy-cm): 321.06 FINDINGS: Lungs: Curvilinear bibasilar atelectasis or scarring. No consolidation. No masses. Pleural spaces: Bilateral small volume pleural effusions. No pneumothorax. Heart: Coronary artery calcifications noted. No cardiomegaly. No pericardial effusion. Lymph nodes: Unremarkable. No enlarged lymph nodes. Vasculature: Unremarkable. No aortic aneurysm. Bones/joints: Unremarkable. No acute fracture. Soft tissues: Unremarkable. CT/CT chest con [id number] IMPRESSION: 1. No pulmonary mass. 2. Bilateral small volume pleural effusions.
[2023-10-10 21:30] LABS: Anion Gap 14.5 (5-19); Blood Urea Nitrogen 7 mg/dL (8-23); Calcium 8.3 mg/dL (8.5-10.5); Carbon Dioxide 16 mmol/L (22-29); Chloride 113 mmol/L (98-107); Creatinine Clr Calc Pharmacy 47.7247; Glucose 93 mg/dL (65-115); Osmolality Calculated 288 mOsm/kg (285-295); Potassium 3.5 mmol/L (3.5-5.1); Sodium 140 mmol/L (136-145)
[2023-10-11] VITALS: BP 160/79; PULSE 72; RESP 16; TEMP 36.9; O2SAT 96
[2023-10-11 04:00] VITALS: BP 140/90; PULSE 65; RESP 16; TEMP 37; O2SAT 95
[2023-10-11 05:25] LABS: Alanine Aminotransferase 11 U/L (0-33); Albumin Level 3.1 g/dL (3.5-5.2); Alkaline Phosphatase 87 U/L (35-105); Anion Gap 16.5 (5-19); Aspartate Amino Transferase 20 U/L (0-32); Blood Urea Nitrogen 8 mg/dL (8-23); Calcium 8.6 mg/dL (8.5-10.5); Carbon Dioxide 16 mmol/L (22-29); Chloride 111 mmol/L (98-107); Creatinine Clr Calc Pharmacy 42.7208; Globulin 2.9 g/dL (1.3-4.6); Glucose 98 mg/dL (65-115); Osmolality Calculated 288 mOsm/kg (285-295); Potassium 3.5 mmol/L (3.5-5.1); Sodium 140 mmol/L (136-145); Total Bilirubin 0.4 mg/dL (0.15-1.2)
[2023-10-11 07:06] VITALS: BP 146/67; PULSE 73; RESP 21; TEMP 36.7; O2SAT 95
[2023-10-11] MEDS: venlafaxine ER (24HR) 150 mg Capsule PO (07:59)
[2023-10-11] MEDS: donepezil 5 MG Tablet PO (07:59)
[2023-10-11] MEDS: topiramate 100 mg Tablet 50 MG PO (07:59)
--- NOTE | 2023-10-11 10:28 | PM.DCS ---
Discharge Providers Date of Admission: 10/07/23 17:52 Date of Discharge: October 11, 2023 Attending Provider at Admission: Janak Marino DO Attending Provider at Discharge: Fabien Erickson MD Primary Care Provider: Emily Beebe Diagnoses at Discharge Discharge Diagnosis (1) Intractable vomiting: Status: Acute (2) Melena: Status: Acute (3) Hematochezia: Status: Acute (4) Other malaise and fatigue: Status: Acute (5) Chronic constipation: Status: Acute (6) Diverticulosis: Status: Acute (7) History of diverticulitis of colon: Status: Acute (8) Lumbar disc disease with radiculopathy: Status: Acute (9) Lumbar stenosis with neurogenic claudication: Status: Acute Reason for Visit Reason for Visit: chest pains Hospital Course Hospital Course Joselyn Melara is a 78 year old female with history dementia CHF hypertension hyperlipidemia and anxiety presents with a 5-day history of nausea and vomiting. This illness started with bloody diarrhea according to the . He said it was dark black with noticeable blood. She has been drinking some black raspberry sparkling ice and they thought that is what she was vomiting. However the vomit is bright red blood and does not appear like the sparkling ice color. Overall the patient states she is just not been feeling well rather achy denies headaches. Wants asking the reports patient actually has not been feeling well since Sunday when she was evaluated for her back pain and was going to have epidural shots. In the emergency department her vital signs are stable hemoglobin is within normal limits. She has failed a few doses of Zofran. She will be admitted to the hospital for workup and treatment of hematochezia and melena. Patient was admitted to [facility], for concerns for hematochezia, melena, 50 pound weight loss, poor appetite, intermittent dysphagia, kept n.p.o., received IV fluids, hemoglobin monitored , she underwent EGD, was found to have mild gastric outlet obstruction which was dilated, found to have gastritis. Potentially the mild gastric outlet obstruction is the reason why she is having complaints of feeling full soon, having recurrent nausea vomiting, her preference for a liquid diet. On discharge I have instructed her to slowly advance her diet, to full liquid diet and from there she can advance to GI soft diet. For gastritis I advised her to completely avoid any NSAIDs, continue Protonix 40 twice daily, if any recurrent bleeding black stools go to emergency room. I have also performed a CT scan abdomen pelvis, without any acute findings CT of the chest without any acute findings, given her complaints of weight loss, fatigue, malaise, poor appetite. I will have patient follow-up with gastroenterology as outpatient patient, the only other thought I had was patient does have moderate dilation of the common bile duct, and central hepatic duct, trace pneumobilia, no significant liver function abnormalities, or bilirubin abnormalities, but certainly it could be represented to of malignancy such as a cholangiocarcinoma. I would have her follow-up with GI in [place]. The other thought I had was she could potentially have some gastroparesis, nonetheless she should follow-up with GI in [place] Given her weight loss and her fatigue, I would recommend for her to have a colonoscopy follow-up with general surgery, and she should follow-up with the routine screening mammography Physical Exam Const: COMMON NORMALS: no acute distress and patient oriented x3 Resp: COMMON NORMALS: normal respiratory effort, No retractions, No use of accessory muscles and clear to auscultation bilaterally AUSCULTATION: clear to auscultation bilaterally Cardio: COMMON NORMALS: regular rate, regular rhythm, S1 normal heart sound present and S2 normal heart sound present RATE: regular rate RHYTHM: regular rhythm HEART SOUNDS: S1 normal heart sound present and S2 normal heart sound present GI: COMMON NORMALS: Normal to inspection, nondistended, normoactive bowel sounds present and non-tender Extremity: COMMON NORMALS: no pedal edema Neuro: COMMON NORMALS: patient oriented x3 Psych: COMMON NORMALS: mental status grossly normal Discharge Data Studies Completed and Pending Completed Studies During Hospitalization Category Date Time Status CT abdomen pelvis wo con [id number] Stat Cat Scan 10/07/23 16:[address] chest wo con [id number] Stat Cat Scan 10/10/23 15:52 Completed CXRP [XR chest 1V portable [id number]] Stat Exams 10/07/23 15:03 [place] [id number] Routine Ultrasound 10/09/23 09:20 Completed Pending at discharge Category Date Time Status Comprehensive Metabolic Panel AM LABS Lab 10/12/23 04:00 Ordered OVA and Parasites, Conc and PE Routine Lab 10/08/23 11:15 Results Salmonella / Shigella / Campy Routine Lab 10/08/23 11:15 Results Pathology: Surgical [PTH] Routine Pth 10/10/23 15:14 Received Radiology Impressions Chest X-Ray 10/07/23 15:03 IMPRESSION: No acute findings. Abdomen/Pelvis CT 10/07/23 16:23 IMPRESSION: 1. No acute findings. 2. Incidental findings above. Chest CT 10/10/23 15:52 IMPRESSION: 1. No pulmonary mass. 2. Bilateral small volume pleural effusions. Laboratory Results WBC 2.84 10^3/uL (3.29-11.43) L 10/10/23 03:21 RBC 3.15 10^6/uL (3.85-5.65) L 10/10/23 03:21 Hgb 10.50 g/dL (11.27-16.99) L 10/10/23 03:21 Hct 31.6 % (36-47) L 10/10/23 03:21 MCV 100.3 fl (85-98) H 10/10/23 03:21 MCH 33.3 pg (27-33) H 10/10/23 03:21 MCHC 33.2 g/dL (30-55) 10/10/23 03:21 RDW 14.1 % (12.1-15.1) 10/10/23 03:21 Plt Count 147 10^3/cmm (157-399) L 10/10/23 03:21 MPV 10.4 fL (7.4-10.4) 10/10/23 03:21 Neut % (Auto) 53.4 % 10/10/23 03:21 Lymph % (Auto) 30.6 % 10/10/23 03:21 [place] % (Auto) 10.6 % 10/10/23 03:21 Eos % (Auto) 3.9 % 10/10/23 03:21 Baso % (Auto) 1.1 % 10/10/23 03:21 Neut # (Auto) 1.52 10^3/uL (1.8-7.7) L 10/10/23 03:21 Lymph # (Auto) 0.9 10^3/uL (0.8-4.8) 10/10/23 03:21 [place] # (Auto) 0.3 10^3/uL (0.2-0.9) 10/10/23 03:21 Eos # (Auto) 0.1 10^3/uL (0.0-0.8) 10/10/23 03:21 Baso # (Auto) 0.0 10^3/uL (0.0-0.1) 10/10/23 03:21 Nucleated RBC % (auto) 0 % 10/10/23 03:21 Nucleated RBCs # 0.0 /100WBC 10/10/23 03:21 ESR 6 mm/hr (0-15) 10/09/23 03:08 PT 11.90 SECONDS (12.1-14.9) L 10/07/23 15:20 INR 0.86 (0.8-1.2) 10/07/23 15:20 D-Dimer 2.37 ug/mLFEU (0-0.59) H 10/09/23 03:08 Sodium 140 mmol/L (136-145) 10/11/23 04:53 Potassium 3.5 mmol/L (3.5-5.1) 10/11/23 04:53 Chloride 111 mmol/L (98-107) H 10/11/23 04:53 Carbon Dioxide 16 mmol/L (22-29) L 10/11/23 04:53 Anion Gap 16.5 (5-19) 10/11/23 04:53 BUN 8 mg/dL (8-23) 10/11/23 04:53 Creatinine 0.9 mg/dL (0.5-0.9) 10/11/23 04:53 GFR Calculation Not Reportable 10/11/23 04:53 Glucose 98 mg/dL (65-115) 10/11/23 04:53 Calculated Osmolality 288 mOsm/kg (285-295) 10/11/23 04:53 Lactic Acid 1.1 mmol/L (0.5-2.2) 10/07/23 15:20 Calcium 8.6 mg/dL (8.5-10.5) 10/11/23 04:53 Phosphorus 2.9 mg/dL (2.5-4.5) 10/10/23 03:21 Magnesium 1.9 mg/dL (1.7-2.3) 10/10/23 03:21 Iron 36 ug/dL (37-145) L 10/08/23 05:07 TIBC 122 mcg/dl 10/08/23 05:07 % Saturation 29.5 % (20-50) 10/08/23 05:07 Unsat Iron Binding 86 ug/dL (112-347) L 10/08/23 05:07 Ferritin 282 ng/mL (15-150) H 10/08/23 05:07 Total Bilirubin 0.4 mg/dL (0.15-1.2) 10/11/23 04:53 Direct Bilirubin 0.20 mg/dL (0.00-0.30) 10/09/23 03:08 AST 20 U/L (0-32) 10/11/23 04:53 ALT 11 U/L (0-33) 10/11/23 04:53 Alkaline Phosphatase 87 U/L (35-105) 10/11/23 04:53 Troponin T Baseline 20 ng/L (0-10) H 10/07/23 15:20 Troponin T 120 Minute 6.00 ng/L (0-10) 10/07/23 17:48 Delta Troponin T -14.00 ABS# (0-10) L 10/07/23 17:48 Troponin T Hi Sens 6Hr 14.41 ng/L (0-10) H 10/07/23 21:39 Troponin T Hi Sens 6Hr Delta -5.59 ng/L (0-12) L 10/07/23 21:39 C-Reactive Protein 48.2 mg/L (0.0-4.9) H 10/09/23 03:08 Total Protein 6.0 g/dL (6.6-8.7) L 10/11/23 04:53 Albumin 3.1 g/dL (3.5-5.2) L 10/11/23 04:53 Globulin 2.9 g/dL (1.3-4.6) 10/11/23 04:53 Lipase 25 U/L (13-60) 10/09/23 03:08 Vitamin B12 > 2000 pg/mL (232-1245) H 10/08/23 05:07 Folate 9.2 ng/mL (4.8-37.3) 10/08/23 05:07 Procalcitonin 0.10 ng/mL (0-0.5) 10/09/23 03:08 TSH 1.02 uIU/mL (0.27-4.20) 10/09/23 03:08 Free T4 1.18 ng/dL (0.82-1.77) 10/09/23 03:08 Free T3 2.2 PG/ML (2.0-4.4) 10/09/23 03:08 C. difficile (PCR) Negative (Negative) 10/08/23 11:15 Vitals Last Vital Signs Temp 98.1 F 10/11/23 07:06 Pulse 73 10/11/23 07:06 Resp 21 H 10/11/23 07:06 BP 146/67 10/11/23 07:06 Pulse Ox 95 10/11/23 07:06 O2 Del Method Room Air 10/11/23 07:06 O2 Flow Rate 2 10/10/23 15:21 Discharge Plan Discharge Patient Disposition: Home Condition: Stable Prescriptions: Continued hydrocodone-acetaminophen 5-325 mg tablet 1 tab PO Q6H PRN (Reason: Pain) topiramate [Topamax] 50 mg tablet 50 mg PO BID atorvastatin [Lipitor] 40 mg tablet 40 mg PO DAILY diazepam 10 mg tablet 10 mg PO BID PRN (Reason: Anxiety) furosemide 20 mg tablet 10 mg PO QAM [id number] 50-325-40 mg capsule 1 cap PO Q4H PRN (Reason: Migraine Headache) donepezil 5 mg tablet 5 mg PO DAILY diphenoxylate-atropine [Lomotil] 2.5-0.025 mg tablet 1 tab PO Q8H venlafaxine 150 mg capsule,extended release 24hr 150 mg PO DAILY magnesium oxide 400 mg magnesium capsule 400 mg PO DAILY ondansetron HCl 4 mg tablet 4 mg PO Q4H Qty: 14 0RF pantoprazole 40 mg tablet,delayed release (DR/EC) 40 mg PO BID Qty: 60 0RF Discharge Orders: Discharge Order (Routine); Ordered 10/11/23 Ordered By: Fabien Erickson Referrals: Anibal Frausto MD [Referring] - (Dr. Frausto has your information and will be calling you to schedule a follow up appointment. You can try to call them on Sunday or Sunday at the number listed if you have any questions or concerns. Thank you.) Emily Beebe [Primary Care Provider] - 10/17/23 1:30 pm Harris,Alf, DO [Physician] - 2 weeks Discharge Diet: Advance as tolerated Discharge Activity: Resume usual activity Patient Instructions: Melena (GEN), GI Discharge Instructions, Opioid Safety, GI (Gastrointestinal) Soft Diet (DC), Full Liquid Diet (DC) Activity Restrictions/Additional Instructions: - Advance to full liquid diet, if you tolerate it well, advance to GI soft diet -Avoid any NSAIDs ? If any recurrent bloody or black stools go to emergency room -Follow-up with general surgery Discharge Attestations Time Spent in Discharge Care*: greater than 30 min Quality Metrics Clinical Quality Measures [ No reported AMI, CVA or VTE this stay] Coding Level of Care Code 55718 Total time (in minutes) for Discharge: 45 Diagnoses Intractable vomiting R11.10 Melena K92.1 Hematochezia K92.1 Other malaise and fatigue R53.81; R53.83 Chronic constipation K59.09 Diverticulosis K57.90 History of diverticulitis of colon Z87.19 Lumbar disc disease with radiculopathy M51.16 Lumbar stenosis with neurogenic claudication M48.062
--- NOTE | 2023-10-11 11:22 | PC.NURSE ---
Discharge Note Patient discharged to home via POV accompanied by spouse. Discharge instructions reviewed with patient and/or motor vehicle field representative. Mobile pharmacy medications and/or prescriptions provided. Belongings/home medications returned.
[2023-10-11 11:24] VITALS: BP 146/67; PULSE 73; RESP 21; TEMP 36.7; O2SAT 95
== END 2023-10-11 11:24 | disposition home or self-care (01) | DRG 378 ==
LOC: ER 17:54 → MEDSURG 18:27 → CSU 20:00
PROVIDERS: Internal Medicine; Surgery; Admitting Provider Internal Medicine; Emergency Provider Emergency Medicine; PCP Nurse Practitioner Family; Visit Provider Family Medicine
PROC: 0DJ08ZZ Inspection of Upper Intestinal Tract, Via Natural or Artificial Opening Endoscopic (ICD-10-PCS; CPT 43235; principal; 2023-10-10 13:30)
DX: K29.71 Gastritis, unspecified, with bleeding (principal); K31.1 Adult hypertrophic pyloric stenosis; F03.90 Unspecified dementia, unspecified severity, without behavioral disturbance, psychotic disturbance, mood disturbance, and anxiety; I50.9 Heart failure, unspecified; I11.0 Hypertensive heart disease with heart failure; E78.5 Hyperlipidemia, unspecified; F41.9 Anxiety disorder, unspecified; M48.062 Spinal stenosis, lumbar region with neurogenic claudication; M54.16 Radiculopathy, lumbar region; K59.09 Other constipation; E86.0 Dehydration; R53.83 Other fatigue; K57.90 Diverticulosis of intestine, part unspecified, without perforation or abscess without bleeding; G89.29 Other chronic pain; D64.9 Anemia, unspecified; K44.9 Diaphragmatic hernia without obstruction or gangrene
CPT/HCPCS: 36415; 71045; 71250; 74176; 80048; 80053; 80076; 82274; 82607; 82728; 82746; 83540; 83550; 83605; 83630; 83690; 83735; 84100; 84145; 84439; 84443; 84481; 84484; 85014; 85018; 85025; 85378; 85610; 85651; 86140; 87045; 87177; 87209; 87400; 87426; 87427; 87449; 87493; 88305; 88342; 93005; 93970; 96365; 96366; 96375; 96376; 99285; C9113; J1170; J1200; J2060; J2270; J2405; J2704; J2765; J3480; J7030; J7042; Q9967

== ENCOUNTER → 2023-10-23 14:00 | Outpatient (BNVA) | payer MEDICARE, SELFPAY | PROVIDERS: PCP Nurse Practitioner Family; Visit Provider Anesthesiology Pain Medicine | DX: M54.16 Radiculopathy, lumbar region (principal); M48.062 Spinal stenosis, lumbar region with neurogenic claudication | CPT/HCPCS: 64483; 64484; J1100; J3490 ==

== ENCOUNTER → 2023-11-20 08:42 | Outpatient (BNVA) | payer MEDICARE, SELFPAY | PROVIDERS: PCP Nurse Practitioner Family; Visit Provider Anesthesiology Pain Medicine | DX: M48.062 Spinal stenosis, lumbar region with neurogenic claudication (principal); M43.16 Spondylolisthesis, lumbar region; M47.816 Spondylosis without myelopathy or radiculopathy, lumbar region; M51.16 Intervertebral disc disorders with radiculopathy, lumbar region | CPT/HCPCS: 99214 ==

== ENCOUNTER → 2023-11-29 13:36 | Outpatient (BNVA) | payer MEDICARE, SELFPAY | PROVIDERS: PCP Nurse Practitioner Family; Visit Provider Anesthesiology Pain Medicine | DX: M47.816 Spondylosis without myelopathy or radiculopathy, lumbar region (principal); M48.062 Spinal stenosis, lumbar region with neurogenic claudication | CPT/HCPCS: 64493; 64494; 64495; J1010; J3490 ==

== ENCOUNTER → 2023-12-17 10:00 | Outpatient (BNVA) | payer MEDICARE, SELFPAY | PROVIDERS: PCP Nurse Practitioner Family; Visit Provider Anesthesiology Pain Medicine | DX: M48.062 Spinal stenosis, lumbar region with neurogenic claudication (principal); M43.16 Spondylolisthesis, lumbar region; M47.816 Spondylosis without myelopathy or radiculopathy, lumbar region; M51.16 Intervertebral disc disorders with radiculopathy, lumbar region | CPT/HCPCS: 99214 ==

== ENCOUNTER 2024-04-03 10:55 | Outpatient (CLI) | payer MEDICARE, SELFPAY ==
--- NOTE | 2024-04-03 11:00 | MM_ITS ---
WS: [id number] SCREENING DIGITAL BREAST TOMOSYNTHESIS MAMMOGRAM WITH CAD HISTORY: SCREENING COMPARISON: 04/30/2018, 01/09/2017 Bilateral CC and MLO with tomosynthesis and synthetic mammography submitted. Computer aided detection analyzed. Breast composition: The breasts are heterogeneously dense, which may obscure small masses. Irregular shaped mass is linear with increased density in the central RIGHT breast near 12:00. Linear and sligh tly nodular and tubular. Additional asymmetry scattered throughout the LEFT breast. Focal asymmetries are in the posterior to mid breast and central to the nipple and towards 12:00. MM/MM scr BI tomosynthesis [id number] IMPRESSION: BI-RADS: 0 - Incomplete: Need additional imaging evaluation FOLLOW UP: Need Additional Imaging RIGHT breast: Spot compression views (CC and MLO). True ML. Ultrasound to follo w if abnormality persists. LEFT breast: Spot compression views (CC and MLO). True ML. Ultrasound to follow if abnormality persists.
== END 2024-04-03 10:56 | disposition home or self-care (01) ==
LOC: MOBLMAM 11:03
PROVIDERS: PCP Nurse Practitioner Family; Visit Provider Nurse Practitioner Family
DX: Z12.31 Encounter for screening mammogram for malignant neoplasm of breast (principal); R92.333 Mammographic heterogeneous density, bilateral breasts; N63.12 Unspecified lump in the right breast, upper inner quadrant; N64.89 Other specified disorders of breast
CPT/HCPCS: 77063; 77067

== ENCOUNTER 2025-04-01 15:13 | Emergency (ER) | payer MEDICARE, SELFPAY ==
--- OUTSIDE RECORDS SUMMARY | 2025-04-01 15:18 | XMS_ITS | Encounter Summary ---
Author Organization [facility] Address [address] [place] [address] Care Team Providers Care Steel Box Toe Inserter Name Role Phone Leif Webb DO Primary Care Provider [phone] Encounter Details Date Type Department Care Team (Latest Contact Info) Description 02/06/[address] [phone] Lavon Gaspar, TANK TRUCK OPERATOR [address] [place] [address] Esophageal Reflux (Primary Dx); Gastritis/Duodenitis ; Allergic Rhinitis, Cause Unspecified Social History Tobacco Use Types Packs/Day Years Used Date Smoking Tobacco: Never Assessed Comments Unknown Sex and Gender Information Value Date Recorded Sex Assigned at Not on file Legal Sex Female 2:45 AM AUTHOR Gender Identity Not on file Sexual Orientation Not on file documented as of this encounter Plan of Treatment Not on file documented as of this encounter Visit Diagnoses Diagnosis Esophageal reflux- Primary Unspecified gastritis and gastroduodenitis without mention of hemorrhage Allergic rhinitis, cause unspecified documented in this encounter Care Teams Steel Box Toe Inserter Relationship Specialty Start Date End Date Leif Webb DO [address] [place] [address] PCP - General Chemical Dependency Nurse 06/01/11 documented as of this encounter
--- OUTSIDE RECORDS SUMMARY | 2025-04-01 15:18 | XMS_ITS | Encounter Summary ---
Author Organization [facility] Address [address] [place] [address] Care Team Providers Care Information Systems Security Manager Name Role Phone Leif Webb DO Primary Care Provider Encounter Details Date Type Department Care Team (Latest Contact Info) Description 05/03/2011 Ancillary Orders [facility] Pre-Registration [place] CALL TO MAKE APPOINTMENT ONLY [address] [place] [address] Kee Wells MD [address] [place] [address] Other screening mammogram (Primary Dx) Social History Tobacco Use Types Packs/Day Years Used Date Smoking Tobacco: Never Assessed Comments No Sex and Gender Information Value Date Recorded Sex Assigned at Not on file Legal Sex Female 2:45 AM PRINCIPAL ACCOUNTS CLERK Gender Identity Not on file Sexual Orientation Not on file documented as of this encounter Plan of Treatment Not on file documented as of this encounter Results * MAMMO DIGITAL SCREEN BILAT (06/05/2011 10:13 AM PRINCIPAL ACCOUNTS CLERK) Anatomical Region Laterality Modality Breast Bilateral Mammography Narrative 06/06/2011 3:17 PM PRINCIPAL ACCOUNTS CLERK Bilateral Mammogram Reason for Exam: Screening Comparison: Comparison is made with the prior exam(s) dated 06.28.04 Findings: Bilateral CC and MLO views were obtained. This examination was reviewed with the aid of a computer-aided detection system(CAD). The breast tissue density is average. No significant new findings since the prior mammogram(s). Procedure Note Beltran Haddad MD - 06/06/2011 Bilateral Mammogram Reason for Exam: Screening Comparison: Comparison is made with the prior exam(s) 06.28.04 Findings: Bilateral CC and MLO views were obtained. This examination was reviewed with the aid of a computer-aided detectionsystem(CAD). The breast tissue density is average. No significant new findings since the prior mammogram(s). Kee Wells MD MAMMO ORDERABLES Final Result documented in this encounter Visit Diagnoses Diagnosis Other screening mammogram- Primary Other screening mammogram documented in this encounter Care Teams Information Systems Security Manager Relationship Specialty Start Date End Date Leif Webb DO [address] [place] [address] PCP - General Mental Health Technician 06/01/11 documented as of this encounter
--- OUTSIDE RECORDS SUMMARY | 2025-04-01 15:18 | XMS_ITS | Encounter Summary ---
Author Organization [facility] Address [address] [place] [address] Care Team Providers Care Passenger Conductor Name Role Phone Leif Webb DO Primary Care Provider [phone] Encounter Details Date Type Department Care Team (Latest Contact Info) Description 08/21/2006 Outpatient Historical [facility] Medicine [address] [phone] Maggie Quijano MD [address] [place] [phone] Acute Frontal Sinusitis (Primary Dx); Classical Migraine without Mention of Intractable Migraine; Unspecified Endocrine Disorder; Unspecified Essential Hypertension Social History Tobacco Use Types Packs/Day Years Used Date Smoking Tobacco: Never Assessed Comments Unknown Sex and Gender Information Value Date Recorded Sex Assigned at Not on file Legal Sex Female 2:45 AM TRANSIT AUTHORITY POLICE OFFICER Gender Identity Not on file Sexual Orientation Not on file documented as of this encounter Plan of Treatment Not on file documented as of this encounter Visit Diagnoses Diagnosis Acute frontal sinusitis- Primary Migraine with aura, without mention of intractable migraine without mention of status migrainosus Unspecified endocrine disorder Unspecified essential hypertension documented in this encounter Care Teams Passenger Conductor Relationship Specialty Start Date End Date Leif Webb DO [address] [place] [address] PCP - General Musical Instrument Supervisor 06/01/11 documented as of this encounter
--- OUTSIDE RECORDS SUMMARY | 2025-04-01 15:18 | XMS_ITS | Clinical Summary ---
Author Organization [facility] [address], [facility] Address [address] [place] [address] Phone Care Team Providers Care Buffing Turner And Counter Name Role Phone Emily Beebe [place] Primary Care Provider [phone] Allergies No known active allergies Medications * This document contains information received from the source organization and may not represent a complete record from that organization. atorvastatin (LIPITOR) 40 MG tablet Take 40 mg by mouth 1 (one) time each day Active butalbital-acet aminophen-caffe ine (FIORICET, ESGIC) 50-325-40 MG per tablet Take 2 tablets by mouth every 4 (four) hours if needed 5 9 Active diazePAM (VALIUM) 10 MG tablet Take 10 mg by mouth every 12 (twelve) hours 0 9 Active ondansetron (ZOFRAN) 4 MG tablet Take 1 tablet by mouth 1 (one) time each day if needed 5 9 Active donepezil (ARICEPT) 5 MG tablet Take 1 tablet by mouth 1 (one) time each day 0 Active HYDROcodone-rom taminophen (NORCO) 5-325 MG per tablet Take 1 tablet by mouth if needed 0 Active topiramate (TOPAMAX) 50 MG tablet Take 1 tablet by mouth 2 (two) times a day 9 Active venlafaxine 150 MG 24 hr tablet Take 150 mg by mouth 1 (one) time each day 0 Active pantoprazole (PROTONIX) 40 MG EC tablet Take 1 tablet by mouth 2 (two) times a day 1 Active traZODone (DESYREL) 50 MG tablet Take 1 tablet by mouth every night 1 Active valACYclovir (VALTREX) 1 g tablet Take 2,000 mg by mouth 2 (two) times a day if needed (fever blister) Active Magnesium 400 MG tablet Take 1 tablet by mouth 1 (one) time each day Active furosemide (LASIX) 20 MG tablet Take 40 mg by mouth 1 (one) time each day 1 Active potassium chloride (KLOR-CON M20) 20 MEQ CR tablet Take 20 mEq by mouth if needed (muscle cramps) Active UNABLE TO FIND Med Name: Vitamin E 400 mg One daily Vitamin B12-One Daily Iron One daily Active dicyclomine (BENTYL) 20 MG tablet Take 1 tablet by mouth 3 (three) times a day if needed 3 Active azithromycin (ZITHROMAX) 250 MG tablet TAKE 2 TABLETS BY MOUTH TODAY THEN TAKE 1 TABLET DAILY FOR THE NEXT FOUR DAYS 4 Active mometasone (NASONEX) 50 MCG/ACT nasal spray Administer 2 sprays into each nostril 1 (one) time each day 5 Active DULoxetine (CYMBALTA) [address] capsule Take 30 mg by mouth 1 (one) time each day 5 Active citalopram (CeleXA) 10 MG tablet Take 10 mg by mouth 1 (one) time each day 5 Active Active Problems Problem Noted Date Diagnosed Date Anxiety 01/03/2023 Secondary hyperparathyroidism of renal origin Proteinuria 01/21/2020 Dysuria 01/21/2020 Hyponatremia 01/21/2020 Chronic kidney disease, Stage IV (severe) 2018 Edema of lower extremity 05/17/2008 Hypertensive disorder 05/17/2008 Overview (04/02/2019): Updating IMO/ICD9 Code and Description Obesity 05/17/2008 Family History Medical History Relation Comments Hypertension Brother Cancer Father Cancer Mother Dementia Neg Hx Diabetes Neg Hx Heart disease Neg Hx Kidney disease Neg Hx Relation Status Comments Brother Alive Father Mother Ovarian Cancer-1 989 Social History Tobacco Use Types Packs/Day Years Used Date Smoking Tobacco: Never Passive Smoke Exposure: Never Smokeless Tobacco: Never Tobacco Cessation:Counseling Given: Not Answered Alcohol Use Standard Drinks/Week Comments Never 0 (1 standard drink = 0.6 oz pur e alcohol) AUDIT-C Answer Date Recorded Frequency of Alcohol Consumption Never 03/27/2019 Average Number of Drinks Not on file 019 Frequency of Binge Drinking Not on file 03/03 Comments No Sex and Gender Information Value Date Recorded Sex Assigned at Not on file Legal Sex Female 12:33 PM EDT Gender Identity Not on file Sexual Orientation Not on file Last Filed Vital Signs Vital Sign Reading Time Taken Comments Blood Pressure 120/58 10/02/2024 9:16 AM CDT Pulse 58 10/02/2024 9:16 AM CDT Temperature 35.1 C (95.1 F) 09/08/2020 9:12 AM MICA PATCHER Respiratory Rate - - Oxygen Saturation 100% 10/02/2024 9:16 AM CDT Inhaled Oxygen Concentration - - Weight 59.4 kg (131 lb) 10/02/2024 9:16 AM CDT Height 154.9 cm (5' 1 ) 10/02/2024 9:16 AM CDT Body Mass Index 24.75 10/02/2024 9:16 AM CDT Plan of Treatment Upcoming Encounters Date Type Department Care Team (Late st Contact Info) Description 04/03/2025 Orders Only [facility] [address] [place], [place] [id number] Perry Brannon MD [address] [address] Stage 3b chronic kidney disease (HCC) 04/15/2025 9:30 AM CDT Office Visit [facility] [address] [place], [place] [address] Perry Brannon MD [address] [place] [address] Health Maintenance Due Date Last Done Comments Pneumococcal Vaccine: 50+ Ye ars (1 of 2 - PCV) 09[birth year]22/1964 Influenza Vaccine (#1) 2025 Hepatitis B Vaccine Aged Out No longe r eligible based on patient's age to complete this topic Insurance [place]BS [place] MCR Adv ([id number]) Care Teams Buffing Turner And Counter Relationship Specialty Start Date End Date Emily Beebe FNP [address] [place] [address] PCP - General Family Medicine 09/05/19
--- OUTSIDE RECORDS SUMMARY | 2025-04-01 15:18 | XMS_ITS | Encounter Summary ---
Author Organization [facility] Address [address] [place] [address] Care Team Providers Care Polymer Specialist Name Role Phone Leif Webb DO Primary Care Provider [phone] Encounter Details Date Type Department Care Team (Latest Contact Info) Description 08/20/1998 Outpatient Historical [facility] Fabrice Nassar, Kee Mitchell MD [address] [place] [address] Gynecologic examination (Primary Dx) Social History Tobacco Use Types Packs/Day Years Used Date Smoking Tobacco: Never Assessed Comments Unknown Sex and Gender Information Value Date Recorded Sex Assigned at Not on file Legal Sex Female 2:45 AM MANUFACTURING ENGINEER AUTOMOTIVE Gender Identity Not on file Sexual Orientation Not on file documented as of this encounter Plan of Treatment Not on file documented as of this encounter Visit Diagnoses Diagnosis Gynecologic examination- Primary Gynecological examination documented in this encounter Care Teams Polymer Specialist Relationship Specialty Start Date End Date Leif Webb DO [address] [place] [address] PCP - General Clearance Rep 06/01/11 documented as of this encounter
--- OUTSIDE RECORDS SUMMARY | 2025-04-01 15:18 | XMS_ITS | Encounter Summary ---
Author Organization [facility] Address [address] [facility] Attn: Epic Prelude ADT JOSELINE [place] [address] Care Team Providers Care Chief Engineer Waterworks Name Role Phone Leif Webb Jared MEYERS Primary Care Provider [phone] Encounter Details Date Type Department Care Team (Late st Contact Info) Description 07/09/2006 Outpatient Historical Qasim Salazar MD NO ADDRESS ON FILE Social History Tobacco Use Types Packs/Day Years Used Date Smoking Tobacco: Never Assessed Comments Unknown Sex and Gender Information Value Date Recorded Sex Assigned at Not on file Legal Sex Female 2:45 AM MEDICAL COMMUNICATION SPECIALIST Gender Identity Not on file Sexual Orientation Not on file documented as of this encounter Plan of Treatment Not on file documented as of this encounter Procedures Procedure Name Priority Date/Time Associated Diagnosis Comments LIPID PANEL Routine 07/09/2006 8:39 AM MEDICAL COMMUNICATION SPECIALIST documented in this encounter Results * (ABNORMAL) LIPID PANEL (07/09/2006 8:39 AM MEDICAL COMMUNICATION SPECIALIST) CALCULATED TOTAL CHOLESTEROL TO HDL RATIO 3.56 3.27 - 4.44 INTERFACE SYSTEM CHOLESTEROL 274(H) 75 - 200 mg/dL INTERFACE SYSTEM GLUCOSE 90 70 - 110 mg/dL INTERFACE SYSTEM HDL 77(H) 40 - 60 mg/dL INTERFACE SYSTEM CALCULATED LDL CHOLESTEROL 153(H) 0 - 130 mg/dL INTERFACE SYSTEM TRIGLYCERIDE 218(H) 0 - 200 mg/dL INTERFACE SYSTEM 07/09/2006 8:39 AM MEDICAL COMMUNICATION SPECIALIST us Qasim Salazar MD CHEMISTRY ORDERABLES Edited INTERFACE SYSTEM Refer to clinic/hospital department documented in this encounter Visit Diagnoses Not on filedocumented in this encounter Care Teams Chief Engineer Waterworks Relationship Specialty Start Date End Date Leif Webb DO [address] [place] [address] PCP - General Toolroom Checker 06/01/11 documented as of this encounter
--- OUTSIDE RECORDS SUMMARY | 2025-04-01 15:18 | XMS_ITS | Encounter Summary ---
Author Organization [facility], [facility] Address [address] [facility] [address] [place] [address] Phone Care Team Providers Care Precision Millwright Name Role Phone Emily Beebe [place] Primary Care Provider [phone] Encounter Details Date Type Department Care Team (Late st Contact Info) Description 01/07/2019 Orders Only [facility], [facility] [address] [facility] [address] [place] [address] Chronic kidney disease, stage 3 (moderate) Social History Tobacco Use Types Packs/Day Years Used Date Smoking Tobacco: Never Assessed Comments Unknown Sex and Gender Information Value Date Recorded Sex Assigned at Not on file Legal Sex Female 12:33 PM EDT Gender Identity Not on file Sexual Orientation Not on file documented as of this encounter Plan of Treatment Upcoming Encounters Date Type Department Care Team (Late st Contact Info) Description 04/03/2025 Orders Only [facility] [employer], [facility] [address] [place], [place] [id number] Perry Brannon MD [address] [facility] [address] [place] [address] Stage 3b chronic kidney disease (HCC) 04/15/2025 9:30 AM CDT Office Visit [facility] [address] [place] [address] Perry Brannon MD [address] [place] [address] documented as of this encounter Visit Diagnoses Diagnosis Chronic kidney disease, stage 3 (moderate) Stage 3b chronic kidney disease (HCC) documented in this encounter Care Teams Precision Millwright Relationship Specialty Start Date End Date Emily Beebe FNP [address] [place] [address] PCP - General Family Medicine 09/05/19 documented as of this encounter
--- OUTSIDE RECORDS SUMMARY | 2025-04-01 15:18 | XMS_ITS | Encounter Summary ---
Author Organization [facility] Address [address] [facility] [address] 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 changed the LDL reference range to 0- 100 mg/dl. This is the recommendation of the National Cholesterol Education Program (NCEP-ATPIII). TRIGLYCERIDE 238(H) 0 - 150 mg/dL LAB Comment: On 11/04/2007, [facility] changed the triglyceride reference range to 0-150 mg/dl. This is the recommendation of the National Cholesterol Education Program (NCEP-ATPIII). CALCULATED TOTAL CHOLESTEROL TO HDL RATIO 4.06 3.27 - 4.44 LAB CHOLESTEROL 284(H) 0 - 200 mg/dL LAB Comment: On 11/04/2007 [facility] changed the cholesterol reference range to 0-200 mg/dl. This is the recommendation of the National Cholesterol Education Program (NCEP-ATPIII). GLUCOSE 85 70 - 110 mg/dL LAB HDL 70(H) 40 - 60 mg/dL LAB Blood specimen (specimen) 01/01/2008 8:20 AM CDT 01/01/2008 11:59 AM CDT us Qasim Salazar MD CHEMISTRY ORDERABLES Final Res ult LAB CLIA# [id number] [facility] [place] [address] documented in this encounter Visit Diagnoses Not on filedocumented in this encounter Care Teams Microbiology Instructor Relationship Specialty Start Date End Date Leif Webb DO [address] [place] [address] PCP - General Lab Systems Analyst 06/01/11 documented as of this encounter
--- OUTSIDE RECORDS SUMMARY | 2025-04-01 15:18 | XMS_ITS | Encounter Summary ---
Author Organization [facility] Address [address] [facility] [place] [address] Care Team Providers Care Modern And Contemporary Art Curator Name Role Phone Leif Webb DO Primary Care Provider [phone] Reason for Referral * Outpatient Services (Routine) - Closed Specialty Diagnoses / Procedures Referred By Contac t Referred To Contact Diagnoses Other screening mammogram Procedures MAMMO DIGITAL SCREEN BILAT Kee Wells MD [address] [place] [address] Phone: tel: fax: [facility] Pre-Registration [place] CALL TO MAKE APPOINTMENT ONLY [address] [place] [address] Phone: tel: fax: Referral ID Status Reason Start Date Expiration Date V isits Requested Visits Authorized [id number] Closed [facility] [place] SCHEDULE ([facility]) 05/15/2012 05/15/2013 1 1 NICAL TRAINING MANAGER Encounter Details Date Type Department Care Team (Latest Contact Info) Description 05/15/2012 Ancillary Orders [facility] [place] CALL TO MAKE APPOINTMENT ONLY [address] [place] [address] Kee Wells MD [address] [place] [address] Other screening mammogram Social History Tobacco Use Types Packs/Day Years Used Date Smoking Tobacco: Never Assessed Comments No Sex and Gender Information Value Date Recorded Sex Assigned at Not on file Legal Sex Female 2:45 AM TECHNICAL TRAINING MANAGER Gender Identity Not on file Sexual Orientation Not on file Occupation Industry Job Start Date Job End Date Not on file Not on file Not on file Not on file documented as of this encounter Plan of Treatment Not on file documented as of this encounter Results * MAMMO DIGITAL SCREEN BILAT (06/27/2012 9:00 AM TECHNICAL TRAINING MANAGER) Anatomical Region Laterality Modality Breast Bilateral Mammography Narrative 06/28/2012 1:21 PM TECHNICAL TRAINING MANAGER Bilateral Mammogram Reason for Exam: Screening Comparison: Comparison is made with the prior exam(s) dated 06.28.04 06.05.11 Findings: Bilateral CC and MLO views were obtained. This examination was reviewed with the aid of a computer-aided detection system(CAD). The breast tissue is dense. No significant new findings since the prior mammogram(s). Procedure Note Sabra Aviles MD - 06/28/2012 Bilateral Mammogram Reason for Exam: Screening Comparison: Comparison is made with the prior exam(s) dated 06.28.412 Findings: Bilateral CC and MLO views were obtained. This examination was reviewed with the aid of a computer-aided detectionsystem(CAD). The breast tissue is dense. No significant new findings since the prior mammogram(s). Kee Wells MD MAMMO ORDERABLES Final Result documented in this encounter Visit Diagnoses Diagnosis Other screening mammogram Other screening mammogram documented in this encounter Care Teams Modern And Contemporary Art Curator Relationship Specialty Start Date End Date Leif Webb DO [address] [place] [id number] PCP - General Pipe Organ Tuner And Repairer 06/01/11 documented as of this encounter
--- OUTSIDE RECORDS SUMMARY | 2025-04-01 15:18 | XMS_ITS | Clinical Summary ---
Author Organization [facility] Address [address] [facility] [place] [address] Care Team Providers Care Systems Navigator Name Role Phone Leif Webb DO Primary Care Provider [phone] Allergies No known active allergies Medications IMITREX 50 mg Oral TabIndications :Migraine Take 50 mg by mouth see administration instructions. Active IMITREX STATDOSE PEN 6 mg/0.5 mL subCUT PnKtIndication s:Migraine Inject 6 mg by subcutaneous injection one time only. Active topiramate (TOPAMAX) 50 mg Oral TabIndications :Migraine Take 1 Tab by mouth 2 times daily. 60 Tab 11 8 Active conjugated estrogens (PREMARIN) 0.625 mg Oral TabIndications :Menopausal syndrome (hot flashes) Take 1 Tab by mouth daily. 30 Tab 5 9 Active HYDROCODONE BIT/ACETAMINOP HEN (HYDROCODONE-A CETAMINOPHEN) 5-500 mg Oral TabIndications :Neck pain Take 1 Tab by mouth every 4 hours as needed for Pain. needs a visit 100 Tab 0 9 Active diazepam (VALIUM) 5 mg Oral TabIndications :Anxiety disorder Take 1 Tab by mouth every 12 hours as needed for Anxiety. 60 Tab 0 9 Active hydrochlorothi azide 25 mg Oral TabIndications :Edema,HTN Take 1 Tab by mouth daily. 30 Tab 5 9 Active BUTALB/ACETAMI NOPHEN/CAFFEIN E (ACETAMINOPHEN -CAFF-BUTALBIT AL) 50-325-40 mg Oral CapIndications :Migraine Take 1 Tab by mouth every 6 hours as needed for Other (See Comment). headache Overdue for a checkup. 12 Cap 0 9 Active sertraline (ZOLOFT) 50 mg tablet Take 50 mg by mouth daily. Active butalbital-cod -acetaminop-ca f (FIORICET #3) 83-36-266-40 mg capsule Take 1 Capsule by mouth every 4 hours as needed for Migraine. Active atorvastatin (LIPITOR) 40 mg tablet Take 40 mg by mouth Daily LATE. Active estropipate (OGEN) 0.75 mg Tablet Take 0.75 mg by mouth daily. Active Active Problems Problem Noted Date Diagnosed Date Migraine 05/17/2008 Obesity 05/17/2008 Anxiety disorder 05/17/2008 Edema of both legs 05/17/2008 HTN (hypertension) 05/17/2008 Overview (07/26/2010): Updating IMO/ICD9 Code and Description Menopausal syndrome (hot flashes) 05/17/2008 Hypertriglyceridemia 05/17/2008 Family History Medical History Relation Name Comments Breast Cancer Neg Hx Social History Tobacco Use Types Packs/Day Years Used Date Smoking Tobacco: Never Smokeless Tobacco: Never Alcohol Use Standard Drinks/Week Comments No 0 (1 standard drink = 0.6 oz pur e alcohol) Comments No Sex and Gender Information Value Date Recorded Sex Assigned at Not on file Legal Sex Female 2:45 AM SOLDER DEPOSIT OPERATOR Gender Identity Not on file Sexual Orientation Not on file Occupation Industry Job Start Date Job End Date Not on file Not on file Not on file Not on file Last Filed Vital Signs Vital Sign Reading Time Taken Comments Blood Pressure 161/87 01/12/2016 10:53 AM CDT Pulse 54 01/12/2016 10:53 AM CDT Temperature 36.3 C (97.3 F) 05/15/2008 4:37 PM SOLDER DEPOSIT OPERATOR Respiratory Rate 16 05/15/2008 4:37 PM SOLDER DEPOSIT OPERATOR Oxygen Saturation - - Inhaled Oxygen Concentration - - Weight 85 kg (187 lb 6.3 oz) 01/12/2016 10:53 AM CDT Height 154.9 cm (5' 1 ) 01/12/2016 10:53 AM CDT Body Mass Index 35.41 01/12/2016 10:53 AM CDT Plan of Treatment Health Maintenance Due Date Last Done Comments DTAP/TDAP/TD VACCINES (1 - Tdap) 09/22/1966 PNEUMOCOCCAL VACCINE 50+ YEARS (1 of 1 - PCV) 09/22/18 98 ZOSTER VACCINE (1 of 2) 09/22/1997 OSTEOPOROSIS SCREENING 09/22/2012 RSV VACCINE (60+ or ) (1 - 1-dose 75+ series) 09/22/2022 INFLUENZA VACCINE (#1) 2025 Insurance [employer] [id number] HMO ADMINISTRATIVE PAYOR Care Teams Systems Navigator Relationship Specialty Start Date End Date Leif Webb DO [address] [place] [address] PCP - General Textile Artist 06/01/11
--- OUTSIDE RECORDS SUMMARY | 2025-04-01 15:18 | XMS_ITS | Encounter Summary ---
Author Organization [facility] Address [address] [place] [address] Care Team Providers Care Bereavement Program Coordinator Name Role Phone Leif Webb DO Primary Care Provider [phone] Encounter Details Date Type Department Care Team (Late st Contact Info) Description 04/20/2007 Inpatient Historical HIS IN BED Db Gracia MD NO ADDRESS ON FILE Irineo Hauser MD [address] [place] [address] Diverticulitis of Colon with Hemorrhage (Primary Dx) Social History Tobacco Use Types Packs/Day Years Used Date Smoking Tobacco: Never Assessed Comments Unknown Sex and Gender Information Value Date Recorded Sex Assigned at Not on file Legal Sex Female 2:45 AM [employer] Gender Identity Not on file Sexual Orientation Not on file documented as of this encounter Plan of Treatment Not on file documented as of this encounter Procedures Procedure Name Priority Date/Time Associated Diagnosis Comments CBC WITH DIFFERENTIAL Routine 04/26/2007 6:47 AM CDT COMPREHENSIVE METABOLIC PANEL Routine 04/26/2007 6:47 AM CDT CBC WITH DIFFERENTIAL Routine 04/25/2007 4:38 AM CDT BASIC METABOLIC PANEL Routine 04/25/2007 4:38 AM CDT CBC WITH DIFFERENTIAL Routine 04/24/2007 4:30 AM CDT BASIC METABOLIC PANEL Routine 04/24/2007 4:30 AM CDT CBC WITH DIFFERENTIAL Routine 04/23/2007 2:58 PM CDT BASIC METABOLIC PANEL Routine 04/23/2007 1:25 PM CDT CBC WITH DIFFERENTIAL Routine 04/22/2007 5:25 AM CDT BASIC METABOLIC PANEL Routine 04/22/2007 5:25 AM CDT CARDIAC ENZYMES Routine 04/21/2007 2:30 AM CDT CBC WITH DIFFERENTIAL Routine 04/21/2007 2:30 AM CDT COMPREHENSIVE METABOLIC PANEL Routine 04/21/2007 2:30 AM CDT POC BLOOD GAS AND LACTIC ACID Routine 04/20/2007 9:23 PM CDT CARDIAC ENZYMES Routine 04/20/2007 7:[address] ABDOMEN PELVIS W CONTRAST Routine 04/20/2007 4:29 PM CDT XR CHEST PA OR AP 1 VW Routine 7 4:29 PM CDT HELICOBACTER PYLORI IGG Routine 04/20/2007 3:59 PM CDT POC ELECTROLYTES/BMP Routine 04/20/2007 3:47 PM CDT PT AND APTT Routine 04/20/2007 2:10 PM CDT CARDIAC ENZYMES Routine 04/20/2007 2:10 PM CDT CBC WITH DIFFERENTIAL Routine 04/20/2007 2:10 PM CDT LIPASE Routine 04/20/2007 2:10 PM CDT CK Routine 04/20/2007 2:10 PM CDT AMYLASE Routine 04/20/2007 2:10 PM CDT COMPREHENSIVE METABOLIC PANEL Routine 04/20/2007 2:10 PM CDT documented in this encounter Results * (ABNORMAL) COMPREHENSIVE METABOLIC PANEL (04/26/2007 6:47 AM CDT) GLUCOSE 99 70 - 110 mg/dL INTERFACE SYSTEM BUN 11 7 - 17 mg/dL INTERFACE SYSTEM CREATININE 1.0 0.7 - 1.2 mg/dL INTERFACE SYSTEM SODIUM 139 136 - 145 mEq/L INTERFACE SYSTEM POTASSIUM 3.9 3.5 - 5.0 mEq/L INTERFACE SYSTEM CHLORIDE 109 95 - 110 mEq/L INTERFACE SYSTEM CO2 26 22 - 32 mmol/l INTERFACE SYSTEM CALCIUM 9.2 8.4 - 10.5 mg/dL INTERFACE SYSTEM TOTAL PROTEIN 5.8(L) 6.3 - 8.2 g/dL INTERFACE SYSTEM ALBUMIN 3.3(L) 3.5 - 5.0 g/dL INTERFACE SYSTEM ALKALINE PHOSPHATASE 74 25 - 100 U/L INTERFACE SYSTEM AST 12 8 - 33 U/L INTERFACE SYSTEM ALT 7 4 - 36 IU/L INTERFACE SYSTEM BILIRUBIN TOTAL 0.2(L) 0.3 - 1.2 mg/dL INTERFACE SYSTEM GLOBULIN (CALC) 2.5 2.4 - 3.9 g/dL INTERFACE SYSTEM ALBUMIN/GLOBULIN RATIO 1.3 1.0 - 2.3 INTERFACE SYSTEM ANION GAP 8(L) 9 - 20 mEq/L INTERFACE SYSTEM OSMOLALITY, CALCULATED 285 275 - 295 mOsm/Kg INTERFACE SYSTEM 04/26/2007 6:47 AM CDT us Irineo Hauser MD CHEMISTRY ORDERABLES Edited INTERFACE SYSTEM Refer to clinic/hospital department * (ABNORMAL) CBC WITH DIFFERENTIAL (04/26/2007 6:47 AM CDT) WBC 6.1 4.8 - 10.8 K/ul INTERFACE SYSTEM RBC 3.84(L) 4.20 - 5.40 Mil/ul INTERFACE SYSTEM HEMOGLOBIN 11.9(L) 12.0 - 16.0 g/dL INTERFACE SYSTEM HEMATOCRIT 35.8(L) 36.0 - 46.0 % INTERFACE SYSTEM MCV 93.2 84.0 - 103.0 Fl INTERFACE SYSTEM MCH 31.0 27.0 - 34.0 pg INTERFACE SYSTEM MCHC 33.2 30.0 - 35.0 g/dL INTERFACE SYSTEM RDW 14.1 11.0 - 14.5 % INTERFACE SYSTEM PLATELETS 267 140 - 440 K/ul INTERFACE SYSTEM MPV 9.5 8.9 - 12.8 Fl INTERFACE SYSTEM NEUTROPHILS 62.6 42.2 - 75.2 % INTERFACE SYSTEM LYMPHOCYTES 25.2 24.0 - 44.0 % INTERFACE SYSTEM MONOCYTES 9.7 2.0 - 10.0 % INTERFACE SYSTEM EOSINOPHILS 2.0 0.0 - 7.0 % INTERFACE SYSTEM BASOPHILS 0.5 0.0 - 1.0 % INTERFACE SYSTEM NEUTROPHIL ABSOLUTE 3.8 2.0 - 8.0 K/ul INTERFACE SYSTEM LYMPHOCYTE ABSOLUTE 1.5 1.2 - 4.0 K/ul INTERFACE SYSTEM MONOCYTE ABSOLUTE 0.6 0.1 - 0.6 K/ul INTERFACE SYSTEM EOSINOPHIL ABSOLUTE 0.1 0.0 - 0.7 K/ul INTERFACE SYSTEM BASOPHILS ABSOLUTE 0.0 0.0 - 0.2 K/ul INTERFACE SYSTEM 04/26/2007 6:47 AM CDT us Irineo Hauser MD HEMATOLOGY ORDERABLES Edited INTERFACE SYSTEM Refer to clinic/hospital department * (ABNORMAL) CBC WITH DIFFERENTIAL (04/25/2007 4:38 AM CDT) WBC 8.4 4.8 - 10.8 K/ul INTERFACE SYSTEM RBC 3.86(L) 4.20 - 5.40 Mil/ul INTERFACE SYSTEM HEMOGLOBIN 11.9(L) 12.0 - 16.0 g/dL INTERFACE SYSTEM HEMATOCRIT 35.8(L) 36.0 - 46.0 % INTERFACE SYSTEM MCV 92.7 84.0 - 103.0 Fl INTERFACE SYSTEM MCH 30.8 27.0 - 34.0 pg INTERFACE SYSTEM MCHC 33.2 30.0 - 35.0 g/dL INTERFACE SYSTEM RDW 14.0 11.0 - 14.5 % INTERFACE SYSTEM PLATELETS 243 140 - 440 K/ul INTERFACE SYSTEM MPV 9.5 8.9 - 12.8 Fl INTERFACE SYSTEM NEUTROPHILS 67.6 42.2 - 75.2 % INTERFACE SYSTEM LYMPHOCYTES 21.9(L) 24.0 - 44.0 % INTERFACE SYSTEM MONOCYTES 8.7 2.0 - 10.0 % INTERFA CE SYSTEM EOSINOPHILS 1.4 0.0 - 7.0 % INTERF JAVIER SYSTEM BASOPHILS 0.4 0.0 - 1.0 % INTERFAC E SYSTEM NEUTROPHIL ABSOLUTE 5.7 2.0 - 8.0 K/ul INTERFACE SYSTEM LYMPHOCYTE ABSOLUTE 1.8 1.2 - 4.0 K/ul INTERFACE SYSTEM MONOCYTE ABSOLUTE 0.7(H) 0.1 - 0.6 K/ul INTERFACE SYSTEM EOSINOPHIL ABSOLUTE 0.1 0.0 - 0.7 K/ul INTERFACE SYSTEM BASOPHILS ABSOLUTE 0.0 0.0 - 0.2 K/ul INTERFACE SYSTEM PERIPHERAL BLOOD SMEAR REVIEW Automated Diff Automated Diff INTERFACE SYSTEM 04/25/2007 4:38 AM CDT Irineo Hauser MD HEMATOLOGY ORDERABLES Edited Performing Organization Address City/[facility] Co de Phone Number INTERFACE SYSTEM Refer to clinic/hospital department * BASIC METABOLIC PANEL (04/25/2007 4:38 AM CDT) GLUCOSE 102 70 - 110 mg/dL INTERFACE SYSTEM BUN 7 7 - 17 mg/dL INTERFACE SYSTEM CREATININE 1.1 0.7 - 1.2 mg/dL INTERFACE SYSTEM SODIUM 141 136 - 145 mEq/L INTERFACE SYSTEM POTASSIUM 3.5 3.5 - 5.0 mEq/L INTERFACE SYSTEM CHLORIDE 105 95 - 110 mEq/L INTERFACE SYSTEM CO2 24 22 - 32 mmol/l INTERFACE SYSTEM CALCIUM 8.9 8.4 - 10.5 mg/dL INTERFACE SYSTEM ANION GAP 16 9 - 20 mEq/L INTERFACE SYSTEM OSMOLALITY, CALCULATED 287 275 - 295 mOsm/Kg INTERFACE SYSTEM 04/25/2007 4:38 AM CDT Irineo Hauser MD CHEMISTRY ORDERABLES Edited Performing Organization Address City/[facility] Co de Phone Number INTERFACE SYSTEM Refer to clinic/hospital department * (ABNORMAL) CBC WITH DIFFERENTIAL (04/24/2007 4:30 AM CDT) WBC 11.1(H) 4.8 - 10.8 K/ul INTERFACE SYSTEM RBC 3.89(L) 4.20 - 5.40 Mil/ul INTERFACE SYSTEM HEMOGLOBIN 12.2 12.0 - 16.0 g/dL INTERFACE SYSTEM HEMATOCRIT 36.0 36.0 - 46.0 % INTERFACE SYSTEM MCV 92.5 84.0 - 103.0 Fl INTERFACE SYSTEM MCH 31.4 27.0 - 34.0 pg INTERFACE SYSTEM MCHC 33.9 30.0 - 35.0 g/dL INTERFACE SYSTEM RDW 13.9 11.0 - 14.5 % INTERFACE SYSTEM PLATELETS 227 140 - 440 K/ul INTERFACE SYSTEM MPV 9.7 8.9 - 12.8 Fl INTERFACE SYSTEM NEUTROPHILS 73.0 42.2 - 75.2 % INTERFACE SYSTEM LYMPHOCYTES 17.5(L) 24.0 - 44.0 % INTERFACE SYSTEM MONOCYTES 8.0 2.0 - 10.0 % INTERFA CE SYSTEM EOSINOPHILS 0.9 0.0 - 7.0 % INTERF JAVIER SYSTEM BASOPHILS 0.6 0.0 - 1.0 % INTERFAC E SYSTEM NEUTROPHIL ABSOLUTE 8.1(H) 2.0 - 8.0 K/ul INTERFACE SYSTEM LYMPHOCYTE ABSOLUTE 1.9 1.2 - 4.0 K/ul INTERFACE SYSTEM MONOCYTE ABSOLUTE 0.9(H) 0.1 - 0.6 K/ul INTERFACE SYSTEM EOSINOPHIL ABSOLUTE 0.1 0.0 - 0.7 K/ul INTERFACE SYSTEM BASOPHILS ABSOLUTE 0.1 0.0 - 0.2 K/ul INTERFACE SYSTEM PERIPHERAL BLOOD SMEAR REVIEW Automated Diff Automated Diff INTERFACE SYSTEM 04/24/2007 4:30 AM CDT us Irineo Hauser MD HEMATOLOGY ORDERABLES Edited INTERFACE SYSTEM Refer to clinic/hospital department * (ABNORMAL) BASIC METABOLIC PANEL (04/24/2007 4:30 AM CDT) GLUCOSE 103 70 - 110 mg/dL INTERFACE SYSTEM BUN 6(L) 7 - 17 mg/dL INTERFACE SYSTEM CREATININE 1.0 0.7 - 1.2 mg/dL INTERFACE SYSTEM SODIUM 138 136 - 145 mEq/L INTERFACE SYSTEM POTASSIUM 3.2(L) 3.5 - 5.0 mEq/L INTERFACE SYSTEM CHLORIDE 102 95 - 110 mEq/L INTERFACE SYSTEM CO2 27 22 - 32 mmol/l INTERFACE SYSTEM CALCIUM 9.0 8.4 - 10.5 mg/dL INTERFACE SYSTEM ANION GAP 12 9 - 20 mEq/L INTERFACE SYSTEM OSMOLALITY, CALCULATED 280 275 - 295 mOsm/Kg INTERFACE SYSTEM 04/24/2007 4:30 AM CDT us Irineo Hauser MD CHEMISTRY ORDERABLES Edited INTERFACE SYSTEM Refer to clinic/hospital department * (ABNORMAL) CBC WITH DIFFERENTIAL (04/23/2007 2:58 PM CDT) WBC 12.9(H) 4.8 - 10.8 K/ul INTERFACE SYSTEM RBC 3.93(L) 4.20 - 5.40 Mil/ul INTERFACE SYSTEM HEMOGLOBIN 12.4 12.0 - 16.0 g/dL INTERFACE SYSTEM HEMATOCRIT 36.0 36.0 - 46.0 % INTERFACE SYSTEM MCV 91.6 84.0 - 103.0 Fl INTERFACE SYSTEM MCH 31.6 27.0 - 34.0 pg INTERFACE SYSTEM MCHC 34.4 30.0 - 35.0 g/dL INTERFACE SYSTEM RDW 13.7 11.0 - 14.5 % INTERFACE SYSTEM PLATELETS 221 140 - 440 K/ul INTERFACE SYSTEM MPV 9.7 8.9 - 12.8 Fl INTERFACE SYSTEM NEUTROPHILS 76.3(H) 42.2 - 75.2 % INTERFACE SYSTEM LYMPHOCYTES 14.9(L) 24.0 - 44.0 % INTERFACE SYSTEM MONOCYTES 7.9 2.0 - 10.0 % INTERFA CE SYSTEM EOSINOPHILS 0.4 0.0 - 7.0 % INTERF JAVIER SYSTEM BASOPHILS 0.5 0.0 - 1.0 % INTERFAC E SYSTEM NEUTROPHIL ABSOLUTE 9.9(H) 2.0 - 8.0 K/ul INTERFACE SYSTEM LYMPHOCYTE ABSOLUTE 1.9 1.2 - 4.0 K/ul INTERFACE SYSTEM MONOCYTE ABSOLUTE 1.0(H) 0.1 - 0.6 K/ul INTERFACE SYSTEM EOSINOPHIL ABSOLUTE 0.1 0.0 - 0.7 K/ul INTERFACE SYSTEM BASOPHILS ABSOLUTE 0.1 0.0 - 0.2 K/ul INTERFACE SYSTEM PERIPHERAL BLOOD SMEAR REVIEW Automated Diff Automated Diff INTERFACE SYSTEM HEM COMMENT Smear Reviewed Automated Diff INTERFACE SYSTEM 04/23/2007 2:58 PM CDT Irineo Hauser MD HEMATOLOGY ORDERABLES Edited Performing Organization Address [facility] Phone Number INTERFACE SYSTEM Refer to clinic/hospital department * (ABNORMAL) BASIC METABOLIC PANEL (04/23/2007 1:25 PM CDT) GLUCOSE 126(H) 70 - 110 mg/dL INTERFACE SYSTEM BUN 6(L) 7 - 17 mg/dL INTERFACE SYSTEM CREATININE 1.0 0.7 - 1.2 mg/dL INTERFACE SYSTEM SODIUM 140 136 - 145 mEq/L INTERFACE SYSTEM POTASSIUM 3.7 3.5 - 5.0 mEq/L INTERFACE SYSTEM Comment:Specimen slightly he molyzed CHLORIDE 103 95 - 110 mEq/L INTERFACE SYSTEM CO2 25 22 - 32 mmol/l INTERFACE SYSTEM CALCIUM 8.9 8.4 - 10.5 mg/dL INTERFACE SYSTEM ANION GAP 16 9 - 20 mEq/L INTERFACE SYSTEM OSMOLALITY, CALCULATED 286 275 - 295 mOsm/Kg INTERFACE SYSTEM 04/23/2007 1:25 PM CDT Irineo Hauser MD CHEMISTRY ORDERABLES Edited Performing Organization Address [facility] Phone Number INTERFACE SYSTEM Refer to clinic/hospital department * (ABNORMAL) BASIC METABOLIC PANEL (04/22/2007 5:25 AM CDT) GLUCOSE 138(H) 70 - 110 mg/dL INTERFACE SYSTEM BUN 6(L) 7 - 17 mg/dL INTERFACE SYSTEM CREATININE 0.8 0.7 - 1.2 mg/dL INTERFACE SYSTEM SODIUM 137 136 - 145 mEq/L INTERFACE SYSTEM POTASSIUM 3.1(L) 3.5 - 5.0 mEq/L INTERFACE SYSTEM CHLORIDE 107 95 - 110 mEq/L INTERFACE SYSTEM CO2 24 22 - 32 mmol/l INTERFACE SYSTEM CALCIUM 9.0 8.4 - 10.5 mg/dL INTERFACE SYSTEM ANION GAP 9 9 - 20 mEq/L INTERFACE SYSTEM OSMOLALITY, CALCULATED 280 275 - 295 mOsm/Kg INTERFACE SYSTEM 04/22/2007 5:25 AM CDT Irineo Hauser MD CHEMISTRY ORDERABLES Edited INTERFACE SYSTEM Refer to clinic/hospital department * (ABNORMAL) CBC WITH DIFFERENTIAL (04/22/2007 5:25 AM CDT) WBC 13.7(H) 4.8 - 10.8 K/ul INTERFACE SYSTEM RBC 4.10(L) 4.20 - 5.40 Mil/ul INTERFACE SYSTEM HEMOGLOBIN 13.0 12.0 - 16.0 g/dL INTERFACE SYSTEM HEMATOCRIT 38.1 36.0 - 46.0 % INTERFACE SYSTEM MCV 92.9 84.0 - 103.0 Fl INTERFACE SYSTEM MCH 31.7 27.0 - 34.0 pg INTERFACE SYSTEM MCHC 34.1 30.0 - 35.0 g/dL INTERFACE SYSTEM RDW 14.0 11.0 - 14.5 % INTERFACE SYSTEM PLATELETS 220 140 - 440 K/ul INTERFACE SYSTEM MPV 10.4 8.9 - 12.8 Fl INTERFACE SYSTEM NEUTROPHILS 83.6(H) 42.2 - 75.2 % INTERFACE SYSTEM LYMPHOCYTES 8.7(L) 24.0 - 44.0 % INTERFACE SYSTEM MONOCYTES 7.4 2.0 - 10.0 % INTERFACE SYSTEM EOSINOPHILS 0.1 0.0 - 7.0 % INTERFACE SYSTEM BASOPHILS 0.2 0.0 - 1.0 % INTERFACE SYSTEM NEUTROPHIL ABSOLUTE 11.4(H) 2.0 - 8.0 K/ul INTERFACE SYSTEM LYMPHOCYTE ABSOLUTE 1.2 1.2 - 4.0 K/ul INTERFACE SYSTEM MONOCYTE ABSOLUTE 1.0(H) 0.1 - 0.6 K/ul INTERFACE SYSTEM EOSINOPHIL ABSOLUTE 0.0 0.0 - 0.7 K/ul INTERFACE SYSTEM BASOPHILS ABSOLUTE 0.0 0.0 - 0.2 K/ul INTERFACE SYSTEM 04/22/2007 5:25 AM CDT Irineo Hauser MD HEMATOLOGY ORDERABLES Edited INTERFACE SYSTEM Refer to clinic/hospital department * (ABNORMAL) COMPREHENSIVE METABOLIC PANEL (04/21/2007 2:30 AM CDT) GLOBULIN (CALC) 2.6 2.4 - 3.9 g/dL INTERFACE SYSTEM ALBUMIN/GLOBULIN RATIO 1.3 1.0 - 2.3 INTERFACE SYSTEM GLUCOSE 154(H) 70 - 110 mg/dL INTERFACE SYSTEM BUN 10 7 - 17 mg/dL INTERFACE SYSTEM CREATININE 1.0 0.7 - 1.2 mg/dL INTERFACE SYSTEM SODIUM 139 136 - 145 mEq/L INTERFACE SYSTEM POTASSIUM 3.5 3.5 - 5.0 mEq/L INTERFACE SYSTEM Comment:Specimen slightly he molyzed CHLORIDE 106 95 - 110 mEq/L INTERFACE SYSTEM CO2 18(L) 22 - 32 mmol/l INTERFACE SYSTEM CALCIUM 8.4 8.4 - 10.5 mg/dL INTERFACE SYSTEM TOTAL PROTEIN 6.0(L) 6.3 - 8.2 g/dL INTERFACE SYSTEM ALBUMIN 3.4(L) 3.5 - 5.0 g/dL INTERFACE SYSTEM ALKALINE PHOSPHATASE 66 25 - 100 U/L INTERFACE SYSTEM AST 17 8 - 33 U/L INTERFACE SYSTEM ALT 11 4 - 36 IU/L INTERFACE SYSTEM BILIRUBIN TOTAL 0.2(L) 0.3 - 1.2 mg/dL INTERFACE SYSTEM ANION GAP 19 9 - 20 mEq/L INTERFACE SYSTEM OSMOLALITY, CALCULATED 287 275 - 295 mOsm/Kg INTERFACE SYSTEM 04/21/2007 2:30 AM CDT us Irineo Hauser MD CHEMISTRY ORDERABLES Edited INTERFACE SYSTEM Refer to clinic/hospital department * (ABNORMAL) CBC WITH DIFFERENTIAL (04/21/2007 2:30 AM CDT) WBC 13.7(H) 4.8 - 10.8 K/ul INTERFACE SYSTEM RBC 4.21 4.20 - 5.40 Mil/ul INTERFACE SYSTEM HEMOGLOBIN 13.6 12.0 - 16.0 g/dL INTERFACE SYSTEM HEMATOCRIT 39.3 36.0 - 46.0 % INTERFACE SYSTEM MCV 93.3 84.0 - 103.0 Fl INTERFACE SYSTEM MCH 32.3 27.0 - 34.0 pg INTERFACE SYSTEM MCHC 34.6 30.0 - 35.0 g/dL INTERFACE SYSTEM RDW 13.8 11.0 - 14.5 % INTERFACE SYSTEM PLATELETS 229 140 - 440 K/ul INTERFACE SYSTEM MPV 10.8 8.9 - 12.8 Fl INTERFACE SYSTEM NEUTROPHILS 81.2(H) 42.2 - 75.2 % INTERFACE SYSTEM LYMPHOCYTES 10.2(L) 24.0 - 44.0 % INTERFACE SYSTEM MONOCYTES 8.5 2.0 - 10.0 % INTERFA CE SYSTEM BASOPHILS 0.1 0.0 - 1.0 % INTERFAC E SYSTEM NEUTROPHIL ABSOLUTE 11.2(H) 2.0 - 8.0 K/ul INTERFACE SYSTEM LYMPHOCYTE ABSOLUTE 1.4 1.2 - 4.0 K/ul INTERFACE SYSTEM MONOCYTE ABSOLUTE 1.2(H) 0.1 - 0.6 K/ul INTERFACE SYSTEM BASOPHILS ABSOLUTE 0.0 0.0 - 0.2 K/ul INTERFACE SYSTEM PERIPHERAL BLOOD SMEAR REVIEW Automated Diff Automated Diff INTERFACE SYSTEM 04/21/2007 2:30 AM CDT Irineo Hauser MD HEMATOLOGY ORDERABLES Edited Performing Organization Address City/[facility] Co de Phone Number INTERFACE SYSTEM Refer to clinic/hospital department * CARDIAC ENZYMES (04/21/2007 2:30 AM CDT) Pathologist [facility] TROPONIN I <0.1 0.0 - 1.3 ng/mL INTERFACE SYSTEM Comment: As of 06 the Troponin Reference Range has changed from 0.0-1.5 ng/ml to 0.0- 1.3 ng/ml due to a change in testing methodology. CKMB <0.2 0.0 - 5.0 ng/mL INTERFACE SYSTEM 04/21/2007 2:30 AM CDT Reggie Cespedes MD CHEMISTRY ORDERABLES Edite d Performing Organization Address [facility] Co de Phone Number INTERFACE SYSTEM Refer to clinic/hospital department * (ABNORMAL) POC ISTAT GC4+ (04/20/2007 9:23 PM CDT) SPECIMEN TYPE Arterial INTERF JAVIER SYSTEM Comment: Test Performed By [id number] Pulse OX: 92 LACTIC ACID 0.45 0.36 - 1.25 mmol/l INTERFACE SYSTEM PH 7.40 7.35 - 7.45 Unit INTERFACE SYSTEM PH TEMP CORRECT 7.40 7.35 - 7.45 Unit INTERFACE SYSTEM PCO2 POC 32(L) 35 - 45 mmHg INTERFACE SYSTEM PCO2 TEMP CORRECT 32(L) 35 - 45 mmHg INTERFACE SYSTEM PO2 69(L) 80 - 105 mmHg INTERFACE SYSTEM PO2 TEMP CORRECT 69(L) 80 - 105 mmHg INTERFACE SYSTEM HCO3 (CALC) POC 19.7(L) 22.0 - 26.0 mmol/l INTERFACE SYSTEM BASE EXCESS -5(L) -2 - 3 mmol/l INTERFACE SYSTEM O2 SATURATION 94(L) 95 - 98 % INTERF JAVIER SYSTEM TCO2 (CALC) POC 21(L) 23 - 27 mmol/l INTERFACE SYSTEM 04/20/2007 9:23 PM CDT us Irineo Hauser MD ABG ORDERABLES Edited INTERFACE SYSTEM Refer to clinic/hospital department * CARDIAC ENZYMES (04/20/2007 7:16 PM CDT) TROPONIN I <0.1 0.0 - 1.3 ng/mL INTERFACE SYSTEM Comment: As of 06 the Troponin Reference Range has changed from 0.0-1.5 ng/ml to 0.0- 1.3 ng/ml due to a change in testing methodology. CKMB <0.2 0.0 - 5.0 ng/mL INTERFACE SYSTEM 04/20/2007 7:16 PM CDT us Reggie Cespedes MD CHEMISTRY ORDERABLES Edite d Performing Organization Address City/[facility]/ZIP Co de Phone Number INTERFACE SYSTEM Refer to clinic/hospital department * XR CHEST PA OR AP (04/20/2007 4:29 PM CDT) Anatomical Region Laterality Modality Chest Other 04/20/2007 4:29 PM CDT Narrative 04/20/2007 4:29 PM CDT Exam: Chest - PortableDate/Time of Exam: Apr 22, 2007 2:26:45 PMHistory: Line placement. Findings: Tip of right sided PICC line within SVC. Decreased lung volumes. Cardiovascular silhouettewithin normal limits. IMPRESSION: As above. - Dictated By: Sherron Méndez M.D. Electronically Signed By: Sherron Méndez M.D. Date Signed: 04/22/07 Procedure Note 05/23/2009 Exam: Chest - PortableDate/Time of Exam: Apr 22, 2007 2:26:45 PMHistory: Line placement. Findings: Tip of right sided PICC line within SVC. Decreased lung volumes.Cardiovascular silhouettewithin normal limits. IMPRESSION: As above. - Dictated By: Sherron Méndez M.D. Electronically Signed By: Sherron Méndez M.D. Date Signed: 04/22/07 us Irineo Hauser MD DIAGNOSTIC IMAGING ORDERABLES Final Result * CT ABDOMEN PELVIS W CONTRAST (04/20/2007 4:29 PM CDT) Anatomical Region Laterality Modality Abdomen Other 04/20/2007 4:29 PM CDT Narrative 04/20/2007 4:29 PM CDT Exam: CT Abdomen, Pelvis, w/contrastDate/Time of Exam: Apr 20, 2007 4:18:02 PMHistory: GI hemorrhage. Technique: Axial images were performed from the diaphragm to the pelvic floor with IV contrast andoral contrast. Contrast was injected at 2.5 mL/sec, Optiray 240 100 mL. Comparison: None. Findings: The axial images through the lung bases show compressive changes bilaterally. Liver andspleen are unremarkable. The gallbladder is mildly distended but shows no signs of calcification. Pancreas is unremarkable. The colon is distinctly abnormal with thumbprinting and thickening of the bowel wall and pericolonicinfiltration and stranding. Findings are consistent with bowel wall hemorrhage probably secondary to diverticulitis, ischemia orangiodysplasia. Appendix has been surgically removed. Uterus has been surgically removed. Rectumis unremarkable. Left colon is unremarkable. Transverse colon is slightly thick walled. No free airor free fluid is noted. Impression: Hemorrhagic changes in right colonic wall consistent with an etiology for GI bleed. Case discussed with Dr. Cespedes approximately 4:15 p. m. - Dictated By: Gilberto Prajapati M.D. Electronically Signed By: Gilberto Prajapati M.D. Date Signed: 04/21/07 Procedure Note 05/23/2009 Exam: CT Abdomen, Pelvis, w/contrastDate/Time of Exam: Apr 20, 2007 4:18:02 PMHistory: GI hemorrhage. Technique: Axial images were performed from the diaphragm to the pelvic floor with IVcontrast andoral contrast. Contrast was injected at 2.5 mL/sec, Optiray 240 100 mL. Comparison: None. Findings: The axial images through the lung bases show compressive changesbilaterally. Liver andspleen are unremarkable. The gallbladder is mildly distended but shows no signs ofcalcification. Pancreas is unremarkable. The colon is distinctly abnormal with thumbprinting and thickening of thebowel wall and pericolonicinfiltration and stranding. Findings are consistent with bowel wall hemorrhage probably secondary todiverticulitis, ischemia orangiodysplasia. Appendix has been surgically removed. Uterus has beensurgically removed. Rectumis unremarkable. Left colon is unremarkable. Transverse colon is slightlythick walled. No free airor free fluid is noted. Impression: Hemorrhagic changes in right colonic wall consistent with an etiology forGI bleed. Case discussed with Dr. Cespedes approximately 4:15 p. m. - Dictated By: Gilberto Prajapati M.D. Electronically Signed By: Gilberto Prajapati M.D. Date Signed: 04/21/[address] ORDERABLES Final Resu lt * HELICOBACTER PYLORI IGG (04/20/2007 3:59 PM CDT) Pathologist [facility] H. PYLORI AB Negative Negative INTERFA CE SYSTEM 04/20/2007 3:59 PM CDT Reggie Cespedes MD CHEMISTRY ORDERABLES COM E dited INTERFACE SYSTEM Refer to clinic/hospital department * (ABNORMAL) POC ISTAT 6 (04/20/2007 3:47 PM CDT) SODIUM POC 134(L) 136 - 145 mEq/L INTERFACE SYSTEM POTASSIUM POC 3.5 3.5 - 5.0 mEq/L INTERFACE SYSTEM CHLORIDE POC 107 95 - 110 mEq/L INTERFACE SYSTEM GLUCOSE POC 126(H) 70 - 110 mg/dL INTERFACE SYSTEM BLOOD UREA NITROGEN POC 12 7 - 17 mg/dL INTERFACE SYSTEM HEMATOCRIT POC 40.0 36.0 - 46.0 % INTERFACE SYSTEM HEMOGLOBIN POC 14.0 12.0 - 16.0 g/dL INTERFACE SYSTEM 04/20/2007 3:47 PM CDT Reggie Cespedes MD POINT OF CARE TESTING Edit ed Performing Organization Address City/[facility] Co de Phone Number INTERFACE SYSTEM Refer to clinic/hospital department * PT AND APTT (04/20/2007 2:10 PM CDT) PROTIME --- 13.0 - 15.7 Secs INTERFACE SYSTEM Comment: As of 06 note change in normal range. Possible contamination - to be redrawn.sp INR --- INTERFACE SYSTEM Comment: Expected Values for INR: DVT/PE Goal INR 2.5; range 2.0 - 3.0 Valve Replacement Tissue Goal INR 2.5; range 2.0 - 3.0 Mechanical Goal INR 3.0; range 2.5 - 3.5 POST-OH Goal INR 2.5; range 2.0 - 3.0 or Goal 3.0; range 2.5 - 3.5 Atrial Fibrillation Goal INR 2.5; range 2.0 - 3.0 Ischemic Stroke Goal INR 2.5; range 2.0 - 3.0 For additional information see Guidelines for Anticoagulation available from the pharmacy [facility]. PTT --- 21.6 - 35.6 Secs INTERFACE SYSTEM Comment: Therapeutic Range: Hi-level PE/DVT heparin protocol 80.1 -95.0 sec Lo-level PE/DVT heparin protocol 67.1 - 80.0 sec Cardiac Heparin Protocol 67.1 - 85.0 sec Neuro Heparin Protocol 67.1 - 80.0 sec As of 06/07/2006 note change in APTT Normal Range. 04/20/2007 2:10 PM CDT Reggie Cespedes MD HEMATOLOGY ORDERABLES Edit ed Performing Organization Address City/[facility]/ZIP Co de Phone Number INTERFACE SYSTEM Refer to clinic/hospital department * (ABNORMAL) CBC WITH DIFFERENTIAL (04/20/2007 2:10 PM CDT) WBC 11.6(H) 4.8 - 10.8 K/ul INTERFACE SYSTEM Comment: CBC WAS REDRAWN DUE TO POSSIBLE CONTAMINATION. THIS SAMPLE WAS DRAWN AT 04/20/07 15:37 AND THESE ARE THE CORRECT RESULTS. SS RBC 4.42 4.20 - 5.40 Mil/ul INTERFACE SYSTEM HEMOGLOBIN 14.1 12.0 - 16.0 g/dL INTERFACE SYSTEM HEMATOCRIT 41.0 36.0 - 46.0 % INTERFACE SYSTEM MCV 92.8 84.0 - 103.0 Fl INTERFACE SYSTEM MCH 31.9 27.0 - 34.0 pg INTERFACE SYSTEM MCHC 34.4 30.0 - 35.0 g/dL INTERFACE SYSTEM RDW 13.6 11.0 - 14.5 % INTERFACE SYSTEM PLATELETS 234 140 - 440 K/ul INTERFACE SYSTEM MPV 10.5 8.9 - 12.8 Fl INTERFACE SYSTEM NEUTROPHILS 86.9(H) 42.2 - 75.2 % INTERFACE SYSTEM LYMPHOCYTES 9.5(L) 24.0 - 44.0 % INTERFACE SYSTEM MONOCYTES 3.5 2.0 - 10.0 % INTERFA CE SYSTEM BASOPHILS 0.1 0.0 - 1.0 % INTERFAC E SYSTEM NEUTROPHIL ABSOLUTE 10.1(H) 2.0 - 8.0 K/ul INTERFACE SYSTEM LYMPHOCYTE ABSOLUTE 1.1(L) 1.2 - 4.0 K/ul INTERFACE SYSTEM MONOCYTE ABSOLUTE 0.4 0.1 - 0.6 K/ul INTERFACE SYSTEM BASOPHILS ABSOLUTE 0.0 0.0 - 0.2 K/ul INTERFACE SYSTEM EOSINOPHILS 0.0 0.0 - 7.0 % INTERF JAVIER SYSTEM EOSINOPHIL ABSOLUTE 0.0 0.0 - 0.7 K/ul INTERFACE SYSTEM HEM COMMENT Smear Reviewed Automated Diff INTERFACE SYSTEM Comment:FEW FIBRIN STRANDS S EEN ON SMEAR MAY AFFECT ACCURACY. SS 04/20/2007 2:10 PM CDT us Reggie Cespedes MD HEMATOLOGY ORDERABLES Edit ed INTERFACE SYSTEM Refer to clinic/hospital department * (ABNORMAL) CK (04/20/2007 2:10 PM CDT) CK 392(H) 26 - 140 U/L INTERFACE SYSTEM Comment: As of 05 the [facility] has changed testing methods. The new reference ranges are Males 38-174 Females 26-140 The old referance ranges were Males 0-155 Females 0-133 04/20/2007 2:10 PM CDT Reggie Cespedes MD CHEMISTRY ORDERABLES Edite d Performing Organization Address [facility] de Phone Number INTERFACE SYSTEM Refer to clinic/hospital department * (ABNORMAL) CARDIAC ENZYMES (04/20/2007 2:10 PM CDT) Pathologist [facility] TROPONIN I <0.1 0.0 - 1.3 ng/mL INTERFACE SYSTEM Comment: As of 06 the Troponin Reference Range has changed from 0.0-1.5 ng/ml to 0.0- 1.3 ng/ml due to a change in testing methodology. CKMB 9.5(H) 0.0 - 5.0 ng/mL INTERFACE SYSTEM 04/20/2007 2:10 PM CDT Reggie Cespedes MD CHEMISTRY ORDERABLES Edite d Performing Organization Address [facility] de Phone Number INTERFACE SYSTEM Refer to clinic/hospital department * (ABNORMAL) COMPREHENSIVE METABOLIC PANEL (04/20/2007 2:10 PM CDT) GLOBULIN (CALC) 3.0 2.4 - 3.9 g/dL INTERFACE SYSTEM ALBUMIN/GLOBULIN RATIO 1.3 1.0 - 2.3 INTERFACE SYSTEM GLUCOSE 128(H) 70 - 110 mg/dL INTERFACE SYSTEM BUN 13 7 - 17 mg/dL INTERFACE SYSTEM CREATININE 1.1 0.7 - 1.2 mg/dL INTERFACE SYSTEM SODIUM 140 136 - 145 mEq/L INTERFACE SYSTEM POTASSIUM 3.6 3.5 - 5.0 mEq/L INTERFACE SYSTEM Comment: Specimen was redrawn due to possible contamination.sp These are the correct results.sp CHLORIDE 105 95 - 110 mEq/L INTERFACE SYSTEM CO2 21(L) 22 - 32 mmol/l INTERFACE SYSTEM CALCIUM 9.0 8.4 - 10.5 mg/dL INTERFACE SYSTEM Comment:Calcium not critical due to hypoproteinemia TOTAL PROTEIN 6.8 6.3 - 8.2 g/dL INTERFACE SYSTEM ALBUMIN 3.8 3.5 - 5.0 g/dL INTERFACE SYSTEM ALKALINE PHOSPHATASE 84 25 - 100 U/L INTERFACE SYSTEM AST 23 8 - 33 U/L INTERFACE SYSTEM ALT 14 4 - 36 IU/L INTERFACE SYSTEM BILIRUBIN TOTAL 0.3 0.3 - 1.2 mg/dL INTERFACE SYSTEM ANION GAP 18 9 - 20 mEq/L INTERFACE SYSTEM OSMOLALITY, CALCULATED 289 275 - 295 mOsm/Kg INTERFACE SYSTEM 04/20/2007 2:10 PM CDT Reggie Cespedes MD CHEMISTRY ORDERABLES Edite d Performing Organization Address [facility] Co de Phone Number INTERFACE SYSTEM Refer to clinic/hospital department * LIPASE (04/20/2007 2:10 PM CDT) LIPASE 24 6 - 51 U/L INTERFACE SYSTEM 04/20/2007 2:10 PM CDT Reggie Cespedes MD CHEMISTRY ORDERABLES Edite d Performing Organization Address City/[facility]/ZIP Co de Phone Number INTERFACE SYSTEM Refer to clinic/hospital department * AMYLASE (04/20/2007 2:10 PM CDT) AMYLASE 26 20 - 104 U/L INTERFACE SYSTEM 04/20/2007 2:10 PM CDT Reggie Cespedes MD CHEMISTRY ORDERABLES Edite d Performing Organization Address [facility]/ZIP Co de Phone Number INTERFACE SYSTEM Refer to clinic/hospital department documented in this encounter Visit Diagnoses Diagnosis Diverticulitis of colon with hemorrhage- Primary documented in this encounter Care Teams Bereavement Program Coordinator Relationship Specialty Start Date End Date Leif Webb DO [address] [place] [phone] PCP - General Manuscript Reader 06/01/11 documented as of this encounter
--- OUTSIDE RECORDS SUMMARY | 2025-04-01 15:18 | XMS_ITS | Encounter Summary ---
Author Organization [facility] Address [address] [place] [address] Care Team Providers Care Steel Floor Pan Placing Supervisor Name Role Phone Leif Webb DO Primary Care Provider [phone] Encounter Details Date Type Department Care Team (Latest Contact Info) Description 05/16/[address] [phone] Lavon Gaspar, ROLL OFF DRIVER [address] [place] [address] Unspecified Endocrine Disorder (Primary Dx); Tension Headache; Edema Social History Tobacco Use Types Packs/Day Years Used Date Smoking Tobacco: Never Assessed Comments Unknown Sex and Gender Information Value Date Recorded Sex Assigned at Not on file Legal Sex Female 2:45 AM PATROL DRIVER Gender Identity Not on file Sexual Orientation Not on file documented as of this encounter Plan of Treatment Not on file documented as of this encounter Visit Diagnoses Diagnosis Unspecified endocrine disorder- Primary Tension headache Edema documented in this encounter Care Teams Steel Floor Pan Placing Supervisor Relationship Specialty Start Date End Date Leif Webb DO [address] [place] [id number] PCP - General Director Of Music 06/01/11 documented as of this encounter
--- OUTSIDE RECORDS SUMMARY | 2025-04-01 15:19 | XMS_ITS | Encounter Summary ---
Author Organization [facility] Address [address] [place] [address] Care Team Providers Care Mysql Developer Name Role Phone Leif Webb DO Primary Care Provider [phone] Encounter Details Date Type Department Care Team (Latest Contact Info) Description 02/08/2007 Outpatient Historical [address] [phone] Lavon Gaspar, PROFESSIONAL SYSTEM ADMINISTRATOR [address] [place] [address] DM w/o Complication Type II (CMS/HCC) (Primary Dx) Social History Tobacco Use Types Packs/Day Years Used Date Smoking Tobacco: Never Assessed Comments Unknown Sex and Gender Information Value Date Recorded Sex Assigned at Not on file Legal Sex Female 2:45 AM HOME 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
--- OUTSIDE RECORDS SUMMARY | 2025-04-01 15:19 | XMS_ITS | Clinical Summary ---
Author Organization [facility] Address [address] [place]: Epic Prelude ADT JOSELINE STOVER [phone] Care Team Providers Care Regional Transportation Manager Name Role Phone Leif Webb DO Primary Care Provider [phone] Allergies No known active allergies Medications atorvastatin (LIPITOR) 40 mg tablet Take 40 mg by mouth Daily LATE. 12/22/2015 Active estropipate (OGEN) 0.75 mg Tablet Take 0.75 mg by mouth daily. 12/22/2015 Active sertraline (ZOLOFT) 50 mg tablet Take 50 mg by mouth daily. 12/22/2015 Active butalbital-acet aminophen-caffe ine-codeine (FIORICET #3) [id number] mg capsule Take 1 Capsule by mouth every 4 hours as needed for Migraine. 12/22/2015 Active Active Problems Problem Noted Date Diagnosed Date Anxiety disorder 05/17/2008 HTN (hypertension) 05/17/2008 Overview (10/27/2020): Updating IMO/ICD9 Code and Description Migraine 05/17/2008 Edema of both legs 05/17/2008 Menopausal syndrome (hot flashes) 05/17/2008 Obesity 05/17/2008 Hypertriglyceridemia 05/17/2008 Family History Medical History Relation Name Comments Breast Cancer Neg Hx Social History Tobacco Use Types Packs/Day Years Used Date Smoking Tobacco: Never Smokeless Tobacco: Never Alcohol Use Standard Drinks/Week Comments No 0 (1 standard drink = 0.6 oz pur e alcohol) Comments Unknown Sex and Gender Information Value Date Recorded Sex Assigned at Not on file Legal Sex Female 10:32 AM RN AMBULATORY Gender Identity Not on file Sexual Orientation Not on file Last Filed Vital Signs Vital Sign Reading Time Taken Comments Blood Pressure 161/87 01/12/2016 10:53 AM CDT Pulse 54 01/12/2016 10:53 AM CDT Temperature - - Respiratory Rate - - Oxygen Saturation - - Inhaled Oxygen Concentration [...] 75+ series) 09/22/2022 INFLUENZA VACCINE (#1) 2025 Care Teams Regional Transportation Manager Relationship Specialty Start Date End Date Leif Webb DO [address] [place] [phone] PCP - General Janitorial Cleaner 06/01/11
[2025-04-01 15:25] VITALS: BP 155/73; PULSE 77; TEMP 36.4; O2SAT 100
--- NOTE | 2025-04-01 17:07 | W.ED.ALLEREA ---
HPI - Allergic Reaction General: Chief complaint: Allergic Reaction Stated complaint: Allergic reaction Time Seen by Provider: 04/01/25 16:50 History of Present Illness: HPI narrative: 79-year-old female presents emergency room concerned about allergic reaction to her medications. She did not feel well this morning so she took a old prescription for antibiotics she felt flushed after that thought she was having some arm pain and itching so then she took Benadryl. She did not think that her symptoms completely resolved show she took another medication and still did not feel well ultimately called the ambulance because she is concerned about allergic reaction. Associated symptoms: Deny abdominal pain Related Data Home Medications ?Medication ?Instructions ?Recorded ?Confirmed atorvastatin 40 mg tablet (Lipitor) 40 mg PO DAILY 12/02/20 12/17/23 [id number]-wbhygchvbtvdd-hbpohchd 1 cap PO Q4H PRN Migraine Headache 12/02/20 12/17/23 50 mg-325 mg-40 mg capsule diazepam 10 mg tablet 10 mg PO BID PRN Anxiety 12/02/20 12/17/23 diphenoxylate-atropine 2.5 1 tab PO Q8H 12/02/20 12/17/23 mg-0.025 mg tablet (Lomotil) donepezil 5 mg tablet 5 mg PO DAILY 12/02/20 12/17/23 furosemide 20 mg tablet 10 mg PO QAM 12/02/20 12/17/23 hydrocodone 5 mg-acetaminophen 325 1 tab PO Q6H PRN Pain 12/02/20 12/17/23 mg tablet topiramate 50 mg tablet (Topamax) 50 mg PO BID 12/02/20 12/17/23 venlafaxine 150 mg 150 mg PO DAILY 12/02/20 12/17/23 capsule,extended release 24 hr magnesium oxide 400 mg PO DAILY 08/16/21 12/17/23 Previous Rx's ?Medication ?Instructions ?Recorded pantoprazole 40 mg tablet,delayed 40 mg PO BID #60 tabs 02/06/22 release ondansetron HCl 4 mg tablet 4 mg PO Q4H #14 tabs 10/05/23 Allergies Allergy/AdvReac Type Severity Reaction Status Date / Time amoxicillin (From Augmentin) Allergy Unknown Verified 04/01/25 15:32 cephalexin Allergy Unknown Verified 04/01/25 15:32 clavulanic acid (From Allergy Unknown Verified 04/01/25 15:32 Augmentin) doxycycline Allergy Unknown Verified 04/01/25 15:32 Review of Systems Const: Denies: fever(s) or chills Card: Denies: chest pain Resp: Denies: dyspnea GI: Denies: abdominal pain : Denies: dysuria, urinary frequency or urinary urgency Musc: Denies: neck pain or back pain Skin/Breast: Denies: rash PFSH ED PFSH: Medical History Diverticulitis Lumbar stenosis with neurogenic claudication Lumbar disc disease with radiculopathy Chronic constipation Surgical History History of appendectomy History of partial hysterectomy History of cholecystectomy Family History Denies family history of Anesthesia complication Social History Smoking and tobacco/nicotine status: never used tobacco/nicotine Second hand smoke exposure: No Alcohol intake: never Substance/Drug Use: never Adopted: No service: No Female Reproductive History: Spontaneous abortions: No Physical Exam Const: COMMON NORMALS: no acute distress GENERAL APPEARANCE: cooperative and comfortable ORIENTATION/CONSCIOUSNESS: Yes awake, Yes oriented to person, Yes oriented to place and Yes oriented to time HENMT: COMMON NORMALS: normocephalic, atraumatic and hearing grossly normal bilaterally HEAD & SCALP: normocephalic and atraumatic Resp: COMMON NORMALS: normal respiratory effort, No retractions, No use of accessory muscles and clear to auscultation bilaterally AUSCULTATION: clear to auscultation bilaterally Cardio: COMMON NORMALS: regular rate, regular rhythm and No murmurs present (Cardio) RATE: regular rate RHYTHM: regular rhythm GI: COMMON NORMALS: Soft to palpation and No hepatosplenomegaly present AUSCULTATION: Yes normoactive bowel sounds PALPATION: Yes Soft to palpation, No Tenderness to palpation present (GI), No Guarding due to palpation present (GI) and Yes No hepatosplenomegaly present Extremity: COMMON NORMALS: normal to inspection, capillary refill normal, no clubbing, cyanosis or edema, no calf tenderness and no pedal edema Neuro: SENSORIUM/ORIENTATION: Yes oriented to person, Yes oriented to place and Yes oriented to time Skin: COMMON NORMALS: no rashes or lesions noted GENERAL SKIN EXAM: no rashes or lesions noted Course Vital Signs: Vital signs: Vital Signs Temperature 97.5 F L 04/01/25 15:25 Pulse Rate 93 04/01/25 18:17 Blood Pressure 137/76 04/01/25 18:17 Pulse Oximetry 98 04/01/25 18:17 Oxygen Delivery Me thod Room Air 04/01/25 17:21 MDM - Allergic Reaction Medical Decision Making No respiratory distress no rash no urticaria. Patient observed for a time. Patient given diphenhydramine Pepcid. Steroids not given said she has had difficulty with those in the past. On exam I did not note any rash or urticaria her lungs were clear she was observed for a time continues to remain stable no further symptoms. Encourage patient to avoid taking random medications. Only take what is specifically prescribed follow-up with her doctor return if she has further problems. Medical Records I reviewed the patient's medical records. All radiology interpretation(s) finalized by discharge Discharge Plan Discharge Patient Disposition: Home Clinical Impression: Adverse reaction to drug Condition: Stable Prescriptions: No Action hydrocodone-acetaminophen 5-325 mg tablet 1 tab PO Q6H PRN (Reason: Pain) topiramate [Topamax] 50 mg tablet 50 mg PO BID atorvastatin [Lipitor] 40 mg tablet 40 mg PO DAILY diazepam 10 mg tablet 10 mg PO BID PRN (Reason: Anxiety) furosemide 20 mg tablet 10 mg PO QAM kcqpnjznav-oynadomvyiqtt-ronl 50-325-40 mg capsule 1 cap PO Q4H PRN (Reason: Migraine Headache) donepezil 5 mg tablet 5 mg PO DAILY diphenoxylate-atropine [Lomotil] 2.5-0.025 mg tablet 1 tab PO Q8H venlafaxine 150 mg capsule,extended release 24hr 150 mg PO DAILY magnesium oxide 400 mg magnesium capsule 400 mg PO DAILY ondansetron HCl 4 mg tablet 4 mg PO Q4H Qty: 14 0RF pantoprazole 40 mg tablet,delayed release (DR/EC) 40 mg PO BID Qty: 60 0RF Discharge Orders: Discharge ED (Routine); Ordered 04/01/25 Ordered By: Yuriy Garces Referrals: Emily Beebe [Primary Care Provider, Family Practice] Discharge Diet: Usual diet Discharge Activity: Increase activity as tolerated Patient Instructions: Opioid Safety, Pain Management, Patient Portal & Tom Instructions Activity Restrictions/Additional Instructions: [facility]. It is very important that you follow up as instructed or that you return to the Emergency Department should you have concerns or if your condition changes or worsens in any way. Emergency department visits are focused on emergent conditions, in some cases you may require further evaluation on an outpatient basis. You were seen in the emergency room with complaints of adverse effects to medications. There is no sign of an anaphylactic reaction at this time you are given Benadryl and monitored. Your lung sounds were normal while you were here your vital signs remained normal. Will discharge you home continue to take your previously prescribed medications. (Please note that included in your discharge packet is information concerning opioid safety and pain management. This information is given to all patients were discharged from the ER regardless of their discharge diagnosis or the medicines they usually take or are prescribed.) Print Language: Liberian Coding Level of Care Code ED Flavor Room Worker for Juan Jones
[2025-04-01] MEDS: diphenhydrAMINE 50 mg/mL SDV 1mL 25 MG IM (17:20)
[2025-04-01 17:21] VITALS: BP 139/70; PULSE 79; O2SAT 98
[2025-04-01 18:17] VITALS: BP 137/76; PULSE 93; O2SAT 98
== END 2025-04-01 18:22 | disposition home or self-care (01) ==
PROVIDERS: Emergency Provider Family Medicine; PCP Nurse Practitioner Family
DX: T50.905A Adverse effect of unspecified drugs, medicaments and biological substances, initial encounter (principal); X58.XXXA Exposure to other specified factors, initial encounter
CPT/HCPCS: 96372; 99284; J1200; J9999